=== PATIENT | male | born 1945 | race Caucasian/White ===

== ENCOUNTER 2020-02-21 12:39 | Emergency (ER) | payer OTHER ==
[2020-02-21 13:51] LABS: Absolute Lymphocytes (CBC) 2.5 K/uL (0.7-4.9); Lymphocytes % 23.9 % (15.3-44.8); MPV 9.1 fL (7.6-11.3); RBC Red Blood Cell Count 4.59 M/uL (4.33-5.43)
[2020-02-21 13:52] LABS: Protime INR 1.06
[2020-02-21 14:00] LABS: ALT/SGPT 16 U/L (12-78); AST/SGOT 8 U/L (15-37); Albumin 3.4 g/dL (3.4-5.0); Alkaline Phosphatase 80 U/L (45-117); BUN Blood Urea Nitrogen 15 mg/dL (7-18); Bicarbonate 27 mmol/L (21-32); Bilirubin Direct 0.2 mg/dL (0-0.2); Bilirubin Total 0.8 mg/dL (0.2-1.0); Glucose Level 227 mg/dL (74-106); Magnesium 1.5 mg/dL (1.8-2.4); NT PRO-BNP 273 pg/mL (<450); Potassium 3.9 mmol/L (3.5-5.1); Protein, Total 6.7 g/dL (6.4-8.2); Sodium Level 140 mmol/L (136-145); Troponin (Emerg Dept Use Only) < 0.02 ng/mL (0.0-0.045)
--- NOTE | 2020-02-21 14:19 | ER ---
Nurse's Notes [facility] Name: Jonathon Pimentel Age: 74 yrs Sex: Male : 1945 Arrival Date: 02/21/2020 Time: 12:56 Bed 25 Private MD: Diagnosis: Chest pain, unspecified;Essential (primary) hypertension Presentation: 02/20 13:01 Chief complaint: Patient states: episode of chest pain and shoulder discomfort that ph last 12-15 minutes last night. Pt reports he checked his blood pressure which was 200/100. Pt has no complaints at this time, but would like to get checked out. Coronavirus screen: Proceed with normal triage. Patient denies a cough. Patient denies shortness of breath or difficulty breathing. Patient denies measured and/or subjective temperature greater than 100.4F prior to today's visit. Patient denies travel on a cruise ship or to a country the [facility] currently lists as an affected area. Patient denies contact with known and/or suspected case of COVID-19. Ebola Screen: Patient denies exposure to infectious person. Patient denies travel to an Ebola-affected area in the 21 days before illness onset. Initial Sepsis Screen: Does the patient meet any 2 criteria? No. Patient's initial sepsis screen is negative. Does the patient have a suspected source of infection? No. Patient's initial sepsis screen is negative. Risk Assessment: Do you want to hurt yourself or someone else? Patient reports no desire to harm self or others. Onset of symptoms was February 20, 2020. 13:01 Method Of Arrival: Ambulatory ph 13:01 Acuity: MARLENA 3 ph Historical: - Allergies: 13:04 No Known Allergies; ph - Immunization history:: Adult Immunizations not immunized, Flu vaccine is up to date. - Social history:: Smoking status: Patient denies any tobacco usage or history of. Screenin:32 Abuse screen: Denies threats or abuse. Nutritional screening: No deficits noted. ll1 Tuberculosis screening: No symptoms or risk factors identified. Fall Risk IV access (20 points). Total Ann Fall Scale indicates No Risk (0-24 pts). Assessment: 13:31 General: Appears in no apparent distress. Behavior is calm, cooperative, appropriate ll1 for age. Pain: Denies pain. Pain: Pain does not radiate. Pain began 1 day ago. Neuro: No deficits noted. Cardiovascular: Reports since had 10 minute episode of chest pain and high BP last night. Resolved now. Heart tones S1 S2 Capillary refill < 3 seconds Clubbing of nail beds is absent JVD is absent Patient's skin is warm and dry. Pulses are all present. Respiratory: No deficits noted. Airway is patent Trachea midline Respiratory effort is even, unlabored, Respiratory pattern is regular, symmetrical. 14:30 Reassessment: Patient appears in no apparent distress at this time. No changes from ll1 previously documented assessment. Patient and/or family updated on plan of care and expected duration. Pain level reassessed. Patient is alert, oriented x 3, equal unlabored respirations, skin warm/dry/pink. Vital Signs: 13:01 BP 144 / 67; Pulse 103; Resp 18; Temp 98.0(TE); Pulse Ox 98% on R/A; Weight 113.4 kg; ph Height 5 ft. 10 in. (177.80 cm); Pain 0/10; 13:15 BP 127 / 68; Pulse 85; Resp 18; Pulse Ox 99% ; ll1 14:13 BP 119 / 57; Pulse 81; Resp 18; Pulse Ox 97% ; ll1 13:01 Body Mass Index 35.87 (113.40 kg, 177.80 cm) ph ED Course: 12:56 Patient arrived in ED. fj1 13:04 Triage completed. ph 13:04 Arm band placed on right wrist. ph 13:06 Nessa Ch, CRISTHIAN is Primary Nurse. ll1 13:06 Telly Champagne NP is PHCP. pm1 13:06 Arturo Mccormick MD is Attending Physician. pm1 13:25 Inserted saline lock: 20 gauge in left antecubital area, using aseptic technique. Blood ll1 collected. Patient maintains SpO2 saturation greater than 95% on room air. 13:33 Patient has correct armband on for positive identification. Bed in low position. Call ll1 light in reach. Side rails up X2. paper bag maker on. Pulse ox on. NIBP on. 13:42 XRAY Chest (1 view) In Process Unspecified. EDMS 14:40 No provider procedures requiring assistance completed. IV discontinued, intact, ll1 bleeding controlled, No redness/swelling at site. Pressure dressing applied. Administered Medications: 14:34 Drug: Magnesium 400 mg Route: PO; ll1 14:42 Follow up: Response: No adverse reaction; RASS: Alert and Calm (0) ll1 Outcome: 14:19 Discharge ordered by . pm1 14:42 Patient left the ED. ll1 14:42 Discharged to home ambulatory. ll1 14:42 Condition: stable 14:42 Discharge instructions given to patient, Instructed on discharge instructions, follow up and referral plans. Demonstrated understanding of instructions, follow-up care. Signatures: Dispatcher [employer] EDLorraine Martin, RN RN Telly Banuelos, ROSIE STATUS CONTROLLER pm1 Benjie Padilla 1 Nessa Ch RN RN ll1
--- NOTE | 2020-02-21 14:19 | EDPHYS ---
Physician Documentation [facility] Name: Jonathon Pimentel Age: 74 yrs Sex: Male : 1945 Arrival Date: 02/21/2020 Time: 12:56 Bed 25 Private MD: ED Physician Arturo Mccormick HPI: 02/20 13:20 This 74 yrs old Male presents to ER via Ambulatory with complaints of Chest pm1 Pain, HEART EVALUATION. 13:20 The patient or guardian reports chest pain that is located primarily in the mid-sternal pm1 area. Onset: last night. Associated signs and symptoms: Pertinent positives: hypertension, Pertinent negatives: abdominal pain, cough, diaphoresis, dizziness, headache, nausea, near syncope, palpitations, shortness of breath, vomiting. The chest pain is described as sharp. Duration: The patient or guardian reports a single episode, that is now resolved, that lasted 15 minute(s). Modifying factors: The symptoms are alleviated by NSAIDS, Ibuprofen. the symptoms are aggravated by nothing. Severity of pain: in the emergency department the pain has resolved. The patient has experienced similar episodes in the past. Presents to the ER with complaints of chest pain. Patient with history of chronic back pain from herniated discs. Patient reports that he felt his chronic back pain and that it radiated to his chest. Pain lasted for 12-15 minutes and it occurred last night. Patient has not had any chest pain since. Patient reported that his blood pressure was elevated when he had the pain and it returned to his baseline as his chest pain resolved. Historical: - Allergies: 13:04 No Known Allergies; ph - Immunization history:: Adult Immunizations not immunized, Flu vaccine is up to date. - Social history:: Smoking status: Patient denies any tobacco usage or history of. ROS: 13:20 Constitutional: Negative for fever, chills, and weight loss, Neck: Negative for injury, pm1 pain, and swelling, Respiratory: Negative for shortness of breath, cough, wheezing, and pleuritic chest pain, Abdomen/GI: Negative for abdominal pain, nausea, vomiting, diarrhea, and constipation. 13:20 Back: Negative for injury and pain, MS/Extremity: Negative for injury and deformity, Skin: Negative for injury, rash, and discoloration, Neuro: Negative for headache, weakness, numbness, tingling, and seizure. 13:20 Cardiovascular: Positive for chest pain, Negative for edema, palpitations. Exam: 13:20 Constitutional: This is a well developed, well nourished patient who is awake, alert, pm1 and in no acute distress. Head/Face: Normocephalic, atraumatic. Neck: Trachea midline, no thyromegaly or masses palpated, and no cervical lymphadenopathy. Supple, full range of motion without nuchal rigidity, or vertebral point tenderness. No Meningismus. Chest/axilla: Normal chest wall appearance and motion. Nontender with no deformity. No lesions are appreciated. Cardiovascular: Regular rate and rhythm with a normal S1 and S2. No gallops, murmurs, or rubs. Normal PMI, no JVD. No pulse deficits. Respiratory: Lungs have equal breath sounds bilaterally, clear to auscultation and percussion. No rales, rhonchi or wheezes noted. No increased work of breathing, no retractions or nasal flaring. Abdomen/GI: Soft, non-tender. No guarding or rebound. No evidence of tenderness throughout. Back: No spinal tenderness. No costovertebral tenderness. Full range of motion. Skin: Warm, dry with normal turgor. Normal color with no rashes, no lesions, and no evidence of cellulitis. MS/ Extremity: Pulses equal, no cyanosis. Neurovascular intact. Full, normal range of motion. 13:20 Neuro: Exam negative for acute changes, Orientation: is normal, Mentation: is normal, Motor: is normal, moves all fours, Gait: is steady, at a normal pace, without difficulty. Vital Signs: 13:01 BP 144 / 67; Pulse 103; Resp 18; Temp 98.0(TE); Pulse Ox 98% on R/A; Weight 113.4 kg; ph Height 5 ft. 10 in. (177.80 cm); Pain 0/10; 13:15 BP 127 / 68; Pulse 85; Resp 18; Pulse Ox 99% ; ll1 14:13 BP 119 / 57; Pulse 81; Resp 18; Pulse Ox 97% ; ll1 13:01 Body Mass Index 35.87 (113.40 kg, 177.80 cm) ph MDM: 13:06 Patient medically screened. pm1 14:11 Data reviewed: vital signs. Data interpreted: Pulse oximetry: on room air is 98 %. pm1 Interpretation: normal. 14:18 Counseling: I had a detailed discussion with the patient and/or guardian regarding: the pm1 historical points, exam findings, and any diagnostic results supporting the discharge/admit diagnosis, lab results, radiology results, the need for outpatient follow up, to return to the emergency department if symptoms worsen or persist or if there are any questions or concerns that arise at home. 02/20 13:16 Order name: Basic Metabolic Panel; Complete Time: 14:11 pm02/20 13:16 Order name: CBC with Diff; Complete Time: 14:11 pm1 02/20 13:16 Order name: LFT's; Complete Time: 14:11 pm1 02/20 13:16 Order name: Magnesium; Complete Time: 14:11 pm02/20 13:16 Order name: NT PRO-BNP; Complete Time: 14:11 pm1 02/20 13:16 Order name: PT-INR; Complete Time: 14:11 pm1 02/20 13:16 Order name: Troponin (emerg Dept Use Only); Complete Time: 14:11 pm02/20 13:16 Order name: XRAY Chest (1 view) pm1 02/20 13:16 Order name: EKG; Complete Time: 13:18 pm02/20 13:16 Order name: Cardiac monitoring; Complete Time: 13:30 pm02/20 13:16 Order name: EKG - Nurse/Tech; Complete Time: 13:30 pm02/20 13:16 Order name: IV Saline Lock; Complete Time: 13:30 pm02/20 13:17 Order name: Labs collected and sent; Complete Time: 13:31 pm02/20 13:17 Order name: O2 Per Protocol; Complete Time: 13:31 pm02/20 13:17 Order name: O2 Sat Monitoring; Complete Time: 13:31 pm1 Administered Medications: 14:34 Drug: Magnesium 400 mg Route: PO; ll1 14:42 Follow up: Response: No adverse reaction; RASS: Alert and Calm (0) ll1 Disposition: 19:40 Co-signature as Attending Physician, Arturo Mccormick MD. [email or web address] Disposition: 02/21/20 14:19 Discharged to Home. Impression: Chest pain, unspecified, Essential (primary) hypertension. - Condition is Stable. - Discharge Instructions: Nonspecific Chest Pain, Hypertension, How to Take Your Blood Pressure, [id number], DASH Eating Plan, Managing Your Hypertension. - Medication Reconciliation Form, Thank You Letter, Antibiotic Education, Prescription Opioid Use form. - Follow up: Emergency Department; When: As needed; Reason: Worsening of condition. Follow up: Private Physician; When: 2 - 3 days; Reason: Recheck today's complaints, Continuance of care, Re-evaluation by your physician. - Problem is new. - Symptoms have improved. Signatures: Dispatcher [employer] EDMS Lorraine Domínguez RN RN ph Telly Champagne, ROSIE VIDEO CLERK pm1 Nessa Ch RN RN ll1 Arturo Mccormick MD MD [email or web address] Corrections: (The following items were deleted from the chart) 14:42 14:19 02/21/2020 14:19 Discharged to Home. Impression: Chest pain, unspecified; ll1 Essential (primary) hypertension. Condition is Stable. Forms are Medication Reconciliation Form, Thank You Letter, Antibiotic Education, Prescription Opioid Use. Follow up: Emergency Department; When: As needed; Reason: Worsening of condition. Follow up: Private Physician; When: 2 - 3 days; Reason: Recheck today's complaints, Continuance of care, Re-evaluation by your physician. Problem is new. Symptoms have improved. pm1
[2020-02-21] MEDS ORDERED: MAGNESIUM OXIDE 400 MG TAB ONE (14:34)
[2020-02-21 14:52] VITALS: TEMP 98
[2020-02-21 14:54] VITALS: BP 119/57; O2SAT 97
--- NOTE | 2020-02-21 15:59 | RAD REPORT ---
EXAM DESCRIPTION: Juni Single View02/21/2020 1:39 pm CLINICAL HISTORY: Chest pain COMPARISON: none FINDINGS: The lungs appear clear of acute infiltrate. The heart is mildly enlarged IMPRESSION: No acute abnormalities displayed
--- NOTE | 2020-02-21 19:24 | EKG ---
Test Date: 2020-02-21 Test Time: 13:12:27 Registration Manager: CLAUS MEASUREMENT RESULTS: Intervals: Rate: 93 ME: 164 QRSD: 80 QT: 320 QTc: 397 [place]: P: 57 ME: 164 QRS: 72 T: -11 INTERPRETIVE STATEMENTS: Normal sinus rhythm Nonspecific ST and T wave abnormality Abnormal ECG No previous ECG available for comparison Electronically Signed On 02-21-20 19:23:49 CDT by Jonathan Gerardo
== END 2020-02-21 14:42 | disposition home or self-care (01) ==
LOC: ER 12:39
DX: R07.9 Chest pain, unspecified (principal); I10 Essential (primary) hypertension
CPT/HCPCS: 36415; 71045; 80048; 80076; 83735; 83880; 84484; 85025; 85610; 93005; 99285

== ENCOUNTER 2022-07-14 21:52 | Inpatient (IN) | payer OTHER ==
--- OUTSIDE RECORDS SUMMARY | 2022-07-14 21:59 | XMS REPORT | Continuity of Care Document ---
:1945 Author Organization [facility] t Address [address] [place] [address] Care Team Providers Name Role Phone FREDRICK DELGADO Primary Care Physician Unavailable Fredrick Delgado MD Attending Clinician MILTON TABARES Attending Clinician Unavailable Leela Kebede MA Attending Clinician Unavailable Teresa Hernandez MD Attending Clinician Jose Kendall MD Attending Clinician Marilyn Wetzel MD Attending Clinician Jaleesa Nicholas MA Attending Clinician Unavailable Janes Santiago MD Attending Clinician Rene Shah Attending Clinician Macy Baron MA Attending Clinician Unavailable Mehdi Joel MD Attending Clinician [phone] MARIA DEL CARMEN MARIANO Attending Clinician Unavailable Brittney Patterson RN Attending Clinician Unavailable Yamila Velasquez MA Attending Clinician Unavailable Leidy Gaona MA Attending Clinician Unavailable Liliana Cardona RN Attending Clinician Unavailable Gillian Hernandez MA Attending Clinician Unavailable Celeste POLO, Galindo Smith Attending Clinician [phone] MD MEHDI JOEL Attending Clinician Unavailable Yamila Recinos MA Attending Clinician Unavailable Provider, Unknown Attending Clinician Unavailable MD MARILYN WETZEL Attending Clinician Unavailable Jenny Diaz RN Attending Clinician Unavailable Teresa Hodge Attending Clinician Unavailable Paolo Saldivar MA Attending Clinician Unavailable Provider Stepan POLO Attending Clinician Teresa Grady MA Attending Clinician Unavailable Concha POLO, Val Attending Clinician [phone] Kiara Levin MA Attending Clinician Unavailable Torsten Herrera MD Attending Clinician [phone] MD FREDRICK DELGADO Attending Clinician Unavailable JUSTUS DUNN Attending Clinician Unavailable Sachi Kingston Attending Clinician MD BRANNON HERNANDEZ Attending Clinician Unavailable [facility] Attending Clinician Unavailable Geoffrey Riddle Attending Clinician GEOFFREY SNYDER Attending Clinician Unavailable BRANNON HERNANDEZ Attending Clinician Unavailable ASAEL TELLO Attending Clinician Unavailable DAPHNEY BENJAMIN Attending Clinician Unavailable NURIS CHEN Attending Clinician Unavailable MARIA DEL CARMEN RUDOLPH Attending Clinician Unavailable MEHDI JOEL Admitting Clinician Unavailable MD MEHDI JOEL Admitting Clinician Unavailable MARILYN WETZEL Admitting Clinician Unavailable MD MARILYN WETZEL Admitting Clinician Unavailable MD FREDRICK DELGADO Admitting Clinician Unavailable MD BRANNON HERNANDEZ Admitting Clinician Unavailable Payers Payer Name Policy Type Policy Number Effective Date Expiration Date S ource Problems Condition Condition Condition Status Onset Resolution Last Treating Co mments Source Name Details Category Date Date Treatment Clinician Date Balance Balance Disease Active Overview: Meth maricel problem problem 05-[address] 00:00: [facility] of this [facility]ospita 00 note l might be different from the original. Evaluated by cardiolog y 05/2022 Event monitor was done post TAVR revealing no bradycard ia or pauses. -He notes worsening fatigue and balance issues since TAVR. He can be standing and his equilibri um is off and feels like he will fall forward. -He was bending over to let his dog out of his cage and continued to fall forward- no significa nt injuries. He does not have any dizziness . He denies any dyspnea. -He is still awaiting a new cpap machine- his old machine has been recalled. He has been waiting ~1 yearPlan refer to neurology Cervical Cervical Disease Active Overview: Me thodi radiculopa radiculopa 7-[address] thy thy 00:00: g of this Hospita 00 note l might be different from the original. Evaluated by Neurosurg peace 12/2021 + Orthopedi c Dr Tello Mr. Pimentel presents office today for evaluatio n of low back and bilateral lower extremity pain as well as neck pain. He presents with no recent imaging. He has failed conservat quentin treatment s for his lumbar spine as well. At this time, we will obtain an MRI of the cervical and lumbar spine for further evaluatio n as well as lumbar x-rays. The patient has expressed his understan ding and agrees with the plan, all of his questions were answered to his satisfact ion. He will follow up in office once diagnosti cs are completed .- Using Gabapenti n for pain / referred for pain managemen t S/P TAVR S/P TAVR Disease Active 2020-09 Overview: Me gallardo (transcath (transcath 2-[address] eter eter 00:00: g of this Hospita aortic aortic 00 note is l valve valve different replacemen replacemen from the t) 2020 t) 2020 original. complicate complicate Jonathon Carolina d with d with Loren is LBBB which LBBB which a 76 y.o. resolved : resolved : male with back to back to history topril XL topril XL of as per as per diabetes 09/10 09/10 mellitus, Cardiology Cardiology hypertens note note ion, obstructi ve sleep apnea with cpap use, hyperlipi demia, severe aortic stenosis status post TAVR in 07/2021. Post procedure he had a LBBB. His Toprol was stopped and a 30 event monitor was placed. Event monitor revealing no pauses or bradycard ia. No afib. EKG revealing no further LBBB. Would resume Toprol XL 25. Aortic Aortic Disease Active 2020-09 Methodi stenosis, stenosis, 1-09 st severe severe 00:00: Hospita 00 l Unstable Unstable Disease Active 2020-09 Overview: Me gallardo angina angina 0-[address] 00:00: g of this Hospita 00 note l might be different from the original. Added automatic ally from request for surgery [id number] Chronic Chronic Disease Active Overview: Meth maricel diastolic diastolic 4 Formattin s t heart heart 00:00: g of this Hospita failure failure 00 note l might be different from the original. Chronic diastolic heart failure (HCC)CHF is compensat ed, he is in NYHA class II, continue current medical therapy: furosemid e 20 mg daily Aortic Aortic Disease Active Overview: Method i stenosis stenosis 12-[address] 00:00: g of this Hospita 00 note l might be different from the original. 07/11 Cardiolog y History of moderate to severe aortic stenosis, recent echo revealed worsening of to severe degree,Pe ak velocity is 4.03 m/s, mean pressure gradient is 36 mmHg and aortic valve area is 0.77 cm2, mild pulmonary hypertens ion with RVSP of 44 mmHg clinicall y he has dyspnea and fatigue symptom of mild to moderate activity, will refer to have a TAVR evaluatio nCardiova scular Protocol and plan discussed with patient and family.Al l questions and concerns addressed . Discussed vascular complicat ions, possibly of sternotom y and bypass, pacemaker dependanc e, and possibili ty of PVL.Preop TAVR testing still needed: CVCTA, Cath, Carotids, PFTS Chronic Chronic Disease Active Overview: Meth maricel obstructiv obstructiv [address] e e 00:00: g of this Hospita pulmonary pulmonary 00 note is l disease disease different with acute with acute from the exacerbati exacerbati original. 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 By Cardiolog y Pt on amlodipin e 5 mg + lasix 20 mg by cardiolog y for diastolic dysfuncti on :not bothersom e Diastolic Diastolic Disease Active 2019-09 Overview: Methodi dysfunctio dysfunctio [address] n n 00:00: g of this Hospita 00 note l might be different from the original. By cardiolog y This patient has significa nt elevated left ventricul ar end-diast olic pressure due to left ventricle stiffness which caussd elevated pulmonary capillary wedge pressure as well as moderate pulmonary hypertens ion, there is moderate aortic stenosis, will not refer patient to have TAVR at this point. 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 Trt and preventio n reviewed Hypoglyce kyrie : random BS in the 70 to 80 since start of insulin. Using glimepiri de 4 mg bid + metformin 2000/U : lower insulin Screening Screening Disease Active 2019-09 Overview: Methodi for colon for colon 0 Formatt[address] s t cancer cancer 00:00: g of this Hospita 00 note l might be different from the original. 2011 RTC in 10 years 06/08/2019 :Cologuar d negative 2021: not intereste d in repeat Thyroid Thyroid Disease Recurre Overview: Met hodi nodule R nodule R nce 06-[address] 1.6 cm and 1.6 cm and 00:00: g of this Hospita 2.8 cm 2.8 cm 00 note l left left might be different from the original. By endocrine : The biopsies of the 2 thyroid nodules are benign. I recommend ultrasoun d of the thyroid every 1-2 years to monitor the size of the nodule. Atypical Atypical Disease Active Overview: Me thodi chest pain chest pain 05-[address] acth : acth : 00:00: g of this Hospita mild no mild no 00 note is l obstructiv obstructiv different e CAD e CAD from the original. Followed by cardiolog y Cath Impressio n: 1 mild nonobstru ctive coronary artery disease2 normal left ventricul ar systolic function3 moderate aortic stenosis4 elevated left ventricul ar end-diast olic pressure of 35 mmHg5 moderate pulmonary hypertens ion and elevated pulmonary capillary wedge pressure. Comments: This patient has significa nt elevated left ventricul ar end-diast olic pressure due to left ventricle stiffness which caussd elevated pulmonary capillary wedge pressure as well as moderate pulmonary hypertens ion, there is moderate aortic stenosis, will not refer patient to have TAVR at this point. Will start beta-bloc ker and diuretics for treating left ventricul ar diastolic dysfuncti on. 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 Evaluated by Neurosurg peace( 12/2021 ) - Orthopedi c :Dr Tello/ Jung Padilla -Failed PT , recurrent pain with sciatica , partially relieved with gabapenti n -Persiste nt and recurrent pain + stiffness + shooting to legsMrNilda Pimentel presents office today for evaluatio n of low back and bilateral lower extremity pain as well as neck pain. He presents with no recent imaging. He has failed conservat quentin treatment s for his lumbar spine as well. At this time, we will obtain an MRI of the cervical and lumbar spine for further evaluatio n as well as lumbar x-rays. The patient has expressed his understan ding and agrees with the plan, all of his questions were answered to his satisfact ion. He will follow up in office once diagnosti cs are completed .-Using Gabapenti n for Neuropath y control _ Referral ;to pain managemen t DDD DDD Disease Active Overview: Method i (degenerat (degenerat 4-[address] quentin disc quentin disc 00:00: g of this Hos aravind disease), disease), 00 note l lumbar lumbar might be different from the original. 02/2020 Consulted many orthopedi cs for back pain including Dr Tello and Jung Padilla ; MRI done for his back , no surgery is indicated , completed physical therapy : darnell blandon ( he consulted few other orthopedi cs in the past; no surgery have been suggested yet to my knowledge ) History of History of Disease Active M ethodi use of use of 04-20 st hearing hearing 00:00: Hospita aid in aid in 00 l both ears both ears : not : not regular regular Wears Wears Disease Active Methodi dentures dentures 04-20 st 00:00: Hospita 00 l Chronic Chronic Disease Recurre Overview: Met hodi seasonal seasonal nce 04-[address] allergic allergic 00:00: g of this Hos aravind rhinitis rhinitis 00 note l due to due to might be pollen; pollen; different has dog has dog from the and a cat and a cat original. Aware of worsening symptoms with dog and cats in the house Plan Start flonase - start zyrtec daily ( he can finish his benadryl supplies ) Wears Wears Disease Active Methodi reading reading 04-[address] eyeglasses eyeglasses 00:00: Ho spita 00 l Impingemen Impingemen Disease Active Overview : Methodi t syndrome t syndrome 5-[address] of right of right 00:00: g of this Hos aravind shoulder shoulder 00 note l might be different from the original. Added automatic ally from request for surgery Sprain of Sprain of Disease Active Overview: Methodi right right 5-[address] rotator rotator 00:00: g of this Hospi ta cuff cuff 00 note l capsule capsule might be different from the original. Added automatic ally from request for surgery [id number] Secondary Secondary Disease Active Overview: Methodi osteoarthr osteoarthr 5-[address] itis of itis of 00:00: g of this Hospi ta right right 00 note l shoulder shoulder might be different from the original. Added automatic ally from request for surgery [id number] Ophthalmol Ophthalmol Disease Recurre Overvie w: Loci crystal rojas nce 01-[address] follow-up follow-up 00:00: g of this H ospita encounter encounter [address] faiza kendall might be different from the original. 2018 dr Kendall 2019 Advised to keep uptodate Thoracic Thoracic Disease Active 2017-09 Overview: Me thodi disc disc 2-[address] herniation herniation 00:00: g of this Hospita 00 note l might be different from the original. 01/2020 evaluated in ED for atypical chest pain r/o for acute cardiac ;pain attribute d to thoracic herniated disc ; chronic as per pt with flare ups. 0 seen by [facility] maritza [facility]G for lower / thoracic back pain s/p MRI ; completed physical therapy with resolutio n - surgery if not improving 02/2020 no back pain Status Status Disease Active 2017-09 Methodi post post [address] st shoulder shoulder 00:00: Hospit a surgery,le surgery,le 00 l ft s/p ft s/p arthroscop arthroscop ic surgery ic surgery THIERRY on THIERRY on Disease Recurre Overview: Metho di CPAP, CPAP, nce 02-[address] using CPAP using CPAP 00:00: g of this Hospita daily daily 00 note is l different from the original. Followed by sleep specialis t Dr Santiago 1. Pleural thickenin g could be asbestosi s seen priorCT chest done with LARY alfaro and was told he has asbesotsi sRestrict quentin lung diseaseCh verónica pulmonary function testStart albuterol as needed 3. History of THIERRY- [phone] order new machine. 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 -Unable to afford SGLT2 and GLP1 AR -Uncontro lled with A1C > 7.5 with metformin + glimepiri de + Basaglar Continue same medicatio ns for now and reassess : advised better eating habit Pure Pure Disease Recurre Overview: Metho di hyperchole hyperchole nce 4-[address] sterolemia sterolemia 00:00: g of this Hospita 00 note is l different from the original. Compliant with lipitor 40 mg : LDL at goal HTN HTN Disease Recurre Overview: Metho di (hypertens (hypertens nce 4-[address] ion), ion), 00:00: g of this Hospita benign benign 00 note is l different from the original. Managed by Cardiolog y : - Norvasc + benazepri l + toprol XL 75 mg /d + lasix and they have great synergist ic effect and blood pressure lowering and reducing the risk of proteinur ia.- Advised to refill all blood pressure medicatio ns from Cardiolog y in order to minimize his risk for confusion with polypharm acy. Class 2 Class 2 Disease Active Methodi severe severe 4-11 st obesity obesity 00:00: Hospita due to due to 00 l excess excess calories calories with with serious serious comorbidit comorbidit y and body y and body mass index mass index (BMI) of (BMI) of 36.0 to 36.0 to 36.9 in 36.9 in adult adult SOB SOB Disease Active Overview: Method i (shortness (shortness 4-[address] of breath) of breath) 00:00: g of this Hospita 00 note is l different from the original. Multifact orial : COPD / asbestosi s exposure /Elevated pulm HTN / aortic stenosis / mild non obstructi ve CAD/diast olic htn PFTS : Interpret ationSpir ometry with flow volume loops demonstra murphy mild airway obstructi on.Lung volumes are consisten t with moderate restricti ve lung disease.T he diffusing capacity for carbon monoxide, a reflectio n of alveolar- capillary gas transport , is borderlin e reduced.( Physician Final: 0 10:45AM, Janes OolutCT chest without contrastR ight hemidiaph ragm is elevated and may be paralyzed . Consider fluorosco py for further evaluatio n. Passive subsegmen renetta atelectas is in the right lung base, and bibasilar linear scarring Trace pleural effusions . No pleural thickenin g, calcifica tion, or pneumotho rax Heart is normal in size. Moderate to severe coronary artery calcifica tion with three-ves shen disease. No pericardi al effusion. Heavy mitral annular and aortic valvular calcifica tions. Aorta is nonaneury smal and there is mild scattered calcified atheromat ous plaque. Pulmonary artery is normal in diameter. No mediastin al mass or suspiciou s thoracic lymph nodes Bilateral thyroid nodules versus cysts. Consider ultrasoun d for further assessmen t. Esophagus is unremarka ble. No acute or suspiciou s osseous lesion is identifie d. 05/2020 evaluated by cardiolog y / pulmonary s/p cath Cath Impressio n: 1 mild nonobstru ctive coronary artery disease2 normal left ventricul ar systolic function3 moderate aortic stenosis4 elevated left ventricul ar end-diast olic pressure of 35 mmHg5 moderate pulmonary hypertens ion and elevated pulmonary capillary wedge pressure. Comments: This patient has significa nt elevated left ventricul ar end-diast olic pressure due to left ventricle stiffness which caussd elevated pulmonary capillary wedge pressure as well as moderate pulmonary hypertens ion, there is moderate aortic stenosis, will not refer patient to have TAVR at this point. Will start beta-bloc ker and diuretics for treating left ventricul ar diastolic dysfuncti on. Type 2 Type 2 Disease Recurre Overview: Metho di diabetes diabetes nce 4-[address] mellitus mellitus 00:00: g of this Hos aravind with with 00 note l complicati complicati might be on, with on, with different long-term long-term from the current current original. use of use of -2018 DM insulin insulin well controlle d with victoza+S GLT2 ; cost was an issue :switched to lantus + [id number] + glimepiri de 4 mg 1/2 tab due to marion lui.: Unable to afford brand name including SGLT2 and GLP1 AR : rather stay with glimepiri de / metformin + insulin -07/11 : Uncontrol led with A1C > 7.5 .FBS at 101 today at 120 in the office check A1C and reassess the plan Allergies, Adverse Reactions, Alerts Allergy Allergy Status Severity Reaction(s) Onset Inactive Treating Comm ents Source Name Type Date Date Clinician NO KNOWN Drug Active Univers ALLERGIE Class ity of [facility] [place] [facility] Family History Family Member Diagnosis Comments Start Date Stop Date Source Paternal grandfather [facility] Paternal grandmother [facility] Natural sister Leukemia [facility] Natural brother COPD [facility] Natural father Lung cancer [facility] Maternal grandfather [facility] Maternal grandmother [facility] Natural mother Alzheimer's [facility] Social History Social Habit Start Date Stop Date Quantity Comments Source Sex Assigned At [facility] [place] [facility] Exposure to Not sure [facility] SARS-CoV-2 [facility] (event) Tobacco use and 2022-06-25 2022-06-25 Smokeless tobacco [facility]odist exposure 00:00:00 00:00:00 non-user Hospital Alcohol intake 2022-06-25 2022-06-25 Current [facility] 00:00:00 00:00:00 non-drinker of Hospital alcohol (finding) History SDOH 2021-08-09 2021-08-09 5 [facility] 00:00:00 00:00:00 Hospital History SDOH Food 2021-08-09 2021-08-[address] Worry 00:00:00 00:00:00 Hospital History SDOH Food 2021-08-09 2021-08-[address] Scarcity 00:00:00 00:00:00 Hospital History SDOH 2021-08-09 2021-08-09 2 [facility] Med 00:00:00 00:00:00 Hospital History SDOH 2021-08-09 2021-08-09 2 [facility] Non-Med 00:00:00 00:00:00 Hospita l Smoking Status Start Date Stop Date Source Never smoked tobacco [facility] Medications Ordered Filled Start Stop Current Ordering Indication Dosage Frequency Signature Comments Components Source Medication Medication Date Date Medication? Clinician (SIG) Name Name doxycycline 2021-09 Yes 50mg Q24H Take 50 mg Methodi -skin 0-[address] cleanser 09:54: daily as Hospi ta no19 50 mg 44 needed l kit (prn rosacea flare ups). flash 2021-09 Yes [id number] 1{devic Q14D 1 Device Methodi glucose 0-05 e} every 14 st sensor 00:00: (fourteen) Hospi ta (FreeStyle 00 days. l Alex 2 Sensor) kit amLODIPine 2021-09 Yes 5mg QD Take 1 Metho di (NORVASC) 5 0-02 tablet (5 st mg tablet 00:00: mg total) Hos aravind 00 by mouth l nightly. benazepriL 2021-09 Yes 20mg QD Take 1 Metho di (LOTENSIN) 0-02 tablet (20 st 20 MG 00:00: mg total) Hospita tablet 00 by mouth l daily. glimepiride 2021-09 Yes [id number] 1 tab w/b Methodi (AMARYL) 4 0-[address] MG tablet 00:00: w/d Hospita 00 l gabapentin 2021-09 Yes [id number] 1 tab M ethodi (NEURONTIN) 0-[address] 300 mg 00:00: nerve pain Hospi ta capsule 00 l glimepiride 2021-09- No [id number] 1 tab w/b Methodi (AMARYL) 4 0-02 10-[address] MG tablet 00:00: 00:00 w/d Hospita 00 :00 l glimepiride 2- No [id number] TAKE ONE Methodi (AMARYL) 4 8-22 10-[address] MG tablet 00:00: 00:00 MOUTH Hospit a 00 :00 TWICE A l DAY WITH BREAKFAST AND DINNER metFORMIN Yes [id number] TAKE TWO Methodi XR 8-[address] (GLUCOPHAGE 00:00: MOUTH Hospi ta -XR) 500 mg 00 TWICE A l 24 hr DAY tablet benazepriL 2021- No 20mg QD Take 1 Meth maricel (LOTENSIN) 7-21 10-02 tablet (20 st 20 MG 00:00: 00:00 mg total) Hospit a tablet 00 :00 by mouth l daily. Lantus 2021- No Inject Methodi Solostar 707 07-[address] U-100 15:42: 00:00 skin. Hospita Insulin 100 01 :00 Inject 30 l unit/mL units injection (pen) Lantus Yes Inject 30 Method i Solostar 7-[address] U-100 00:00: the Hospita Insulin 100 00 morning l unit/mL injection (pen) insulin 2021- No [id number] INJECT 30 Methodi GLARGINE 03-26- UNITS st (Basaglar 00:00: 00:00 UNDER THE Ho spita KwikPen 00 :00 SKIN EVERY l U-100 MORNING Insulin) 100 unit/mL injection (pen) metoprolol 2021- No 25mg QD Take 1 Meth maricel succinate 03-26 tablet (25 st XL 00:00: 00:00 mg total) Hospita (TOPROL-XL) 00 :00 by mouth l 25 mg 24 hr daily. tablet atorvastati Yes TAKE ONE Me thodi n (LIPITOR) - TABLET BY st 40 mg 00:00: MOUTH ONCE Hospit a tablet 00 NIGHTLY l insulin 2021- No INJECT 30 Meth maricel GLARGINE 03-13- UNITS st (Basaglar 00:00: 00:00 UNDER THE Ho spita KwikPen 00 :00 SKIN EVERY l U-100 MORNING Insulin) 100 unit/mL injection (pen) glimepiride 2021- No [id number] TAKE ONE [facility] (AMARYL) 4 02-10- TABLET BY st MG tablet 00:00: 00:00 MOUTH Hospit a 00 :00 TWICE A l DAY WITH BREAKFAST AND DINNER benazepriL 2021- No TAKE ONE Me thodi (LOTENSIN) 02-03- TABLET BY st 20 MG 00:00: 00:00 MOUTH Hospita tablet 00 :00 DAILY l metFORMIN 2021- No [id number] TAKE TWO [facility] XR 01-27- TABLETS BY st (GLUCOPHAGE 00:00: 00:00 MOUTH Hosp antoine -XR) 500 mg 00 :00 TWICE A l 24 hr DAY tablet simvastatin 2021- No 10mg QD Take 10 mg [facility] (ZOCOR) 10 01-09 04-[address] MG tablet 22:34: 00:00 nightly. Hos aravind 36 :00 l pen needle, Yes USE WITH Me thodi diabetic 31 4-[address] gauge x 00:00: DAILY Hospita 16" 00 l needle gabapentin 2021- No [id number] 1 tab [facility] (NEURONTIN) 01-06- daily for st 300 mg 00:00: 00:00 nerve pain Hosp antoine capsule 00 :00 l benazepriL 2021- No [id number] 40mg QD Take 1 [facility] (LOTENSIN) 01-06- tablet (40 st 40 MG 00:00: 00:00 mg total) Hospit a tablet 00 :00 by mouth l daily. Lantus 2021- No INJECT [facility] Solostar 01-06- 35-40 st U-100 00:00: 00:00 UNITS Hospita Insulin 100 00 :00 UNDER THE l unit/mL SKIN EVERY injection MORNING (pen) methylPREDN 2021- No [id number] follow [facility] ISolone 01-[address] (Medrol, 00:00: 04:59 directions [facility],) 4 mg 00 :00 l tablet pen needle, 2021- No USE WITH M ethodi diabetic 31 01-06-[address] gauge x 00:00: 00:00 DAILY Hospita 12/04" 00 :00 l needle amLODIPine 2021- No TAKE 1 Meth maricel (NORVASC) 5 11-13- TABLET BY st mg tablet 00:00: 00:00 MOUTH Hospit a 00 :00 NIGHTLY l glimepiride 2021- No [id number] TAKE ONE [facility] (AMARYL) 4 11-12- TABLET BY st MG tablet 00:00: 00:00 MOUTH Hospit a 00 :00 TWICE A l DAY WITH BREAKFAST AND DINNER Lantus 2021- No INJECT 30 Metho di Solostar 11-08-[address] U-100 00:00: 00:00 UNDER THE Hospit a Insulin 100 00 :00 SKIN EVERY l unit/mL MORNING injection (pen) metoprolol 2021- No TAKE ONE Me thodi succinate 11-07- TABLET BY st XL 00:00: 00:00 MOUTH [facility]ospita (TOPROL-XL) 00 :00 EVERY l 50 mg 24 hr MORNING tablet benazepriL 2021- No [id number] TAKE ONE [facility] (LOTENSIN) 2-14 -[address] 20 MG 00:00: 00:00 MOUTH [facility]ospita tablet 00 :00 DAILY l metFORMIN 2021- No [id number] TAKE TWO [facility] XR 10-28 05-[address] (GLUCOPHAGE 00:00: 00:00 MOUTH Hosp antoine -XR) 500 mg 00 :00 TWICE A l 24 hr DAY tablet doxycycline Yes 50mg Q24H Take 50 mg [facility] -skin 1-[address] cleanser 08:27: daily as Hospi ta no19 50 mg 44 needed l kit (prn rosacea flare ups). simvastatin Yes 10mg QD Take 10 mg [facility] (ZOCOR) 10 -[address] MG tablet 08:27: nightly. Hosp antoine 44 l pen needle, Yes USE WITH Me thodi diabetic 31 1-[address] gauge x 00:00: DAILY Hospita 316" 00 l needle pen needle, 2021- No USE WITH M ethodi diabetic 31 1-10 04-[address] gauge x 00:00: 00:00 DAILY Hospita 3/16" 00 :00 l needle glimepiride Yes [id number] TAKE ONE [facility] (AMARYL) 4 1-[address] MG tablet 00:00: MOUTH [facility]ospita 00 TWICE A l DAY WITH BREAKFAST AND DINNER glimepiride 2021- No [id number] TAKE ONE [facility] (AMARYL) 4 1-03 - TABLET BY st MG tablet 00:00: 00:00 MOUTH Hospit a 00 :00 TWICE A l DAY WITH BREAKFAST AND DINNER metoprolol 2020-09 No 25mg QD Take 1 Meth maricel succinate 11-03- tablet (25 st XL 00:00: 05:59 mg total) Hospita (TOPROL-XL) 00 :00 by mouth l 25 mg 24 hr daily. tablet metoprolol 2020-09- No 25mg QD Take 1 Meth maricel succinate 11-03- tablet (25 st XL 00:00: 00:00 mg total) [facility]ospita (TOPROL-XL) 00 :00 by mouth l 25 mg 24 hr daily. tablet atorvastati 2020-09 Yes TAKE ONE Me [facility]odi n (LIPITOR) 2-[address] 40 mg 00:00: MOUTH ONCE Hospit a tablet 00 NIGHTLY l atorvastati 2020-09- No TAKE ONE M ethodi n (LIPITOR) 2-10 - TABLET BY st 40 mg 00:00: 00:00 MOUTH ONCE Hospi ta tablet 00 :00 NIGHTLY l amLODIPine 2020-09 Yes 5mg QD Take 1 Metho di (NORVASC) 5 - tablet (5 st mg tablet 00:00: mg total) Hos aravind 00 by mouth l nightly. amLODIPine 2020-09- No 5mg QD Take 1 Meth maricel (NORVASC) 5 10-13- tablet (5 st mg tablet 00:00: 00:00 mg total) Ho spita 00 :00 by mouth l nightly. clopidogreL 2020-09 No 75mg QD Take 1 Met hodi (PLAVIX) 75 -08 31-13 tablet (75 s t mg tablet 00:00: 05:59 mg total) Ho spita 00 :00 by mouth l daily. clopidogreL 2020-09- No 75mg QD Take 1 Met hodi (PLAVIX) 75 -12 11-13 tablet (75 s t mg tablet 00:00: 05:59 mg total) Ho spita 00 :00 by mouth l daily. metFORMIN 2020-09 Yes [id number] TAKE TWO [facility] XR 1-[address] (GLUCOPHAGE 00:00: MOUTH Hospi ta -XR) 500 mg 00 TWICE A l 24 hr DAY tablet metFORMIN 2020-09- No [id number] TAKE TWO [facility] XR 1-08 02-[address] (GLUCOPHAGE 00:00: 00:00 MOUTH Hosp antoine -XR) 500 mg 00 :00 TWICE A l 24 hr DAY tablet Lantus 2020-09 Yes INJECCT 30 Metho di Solostar 1-[address] U-100 00:00: UNDER THE [facility]ospita Insulin 100 00 SKIN EVERY l unit/mL MORNING injection (pen) Lantus 2020-09- No INJECCT 30 Meth maricel Solostar 1-03 02-[address] U-100 00:00: 00:00 UNDER THE Hospit a Insulin 100 00 :00 SKIN EVERY l unit/mL MORNING injection (pen) furosemide Yes TAKE ONE Met hodi (LASIX) 20 9-[address] mg tablet 00:00: MOUTH [facility]ospita 00 EVERY l MORNING furosemide Yes TAKE ONE Met hodi (LASIX) 20 9-[address] mg tablet 00:00: MOUTH [facility]osp[facility] 00 EVERY l MORNING metoprolol 2020- No TAKE ONE Me thodi succinate - 11-[address] XL 00:00: 00:00 MOUTH [facility]ospita (TOPROL-XL) 00 :00 EVERY l 50 mg 24 hr MORNING tablet metoprolol 2020- No TAKE ONE Me thodi succinate - 11-[address] XL 00:00: 00:00 MOUTH [facility]ospita (TOPROL-XL) 00 :00 EVERY l 50 mg 24 hr MORNING tablet pen needle, 2021- No USE WITH M ethodi diabetic 31 -13 10-[address] gauge x 00:00: 00:00 DAILY Hospita 12/04" 00 :00 l needle pen needle, 2021- No USE WITH M ethodi diabetic 31 -13 10-[address] gauge x 00:00: 00:00 DAILY [facility]ospita 12/04" 00 :00 l needle Lantus 2020- No INJECCT 30 Meth maricel Solostar - 11-[address] U-100 00:00: 00:00 UNDER THE Hospit a Insulin 100 00 :00 SKIN EVERY l unit/mL MORNING injection (pen) Lantus 2020- No INJECCT 30 Meth maricel Solostar - 11-[address] U-100 00:00: 00:00 UNDER THE Hospit a Insulin 100 00 :00 SKIN EVERY l unit/mL MORNING injection (pen) insulin 2020- No [id number] INJECCT 30 [facility] GLARGINE 8-27 09-[address] (Basaglar 00:00: 00:00 UNDER THE Ho spita KwikPen 00 :00 SKIN EVERY l U-100 MORNING Insulin) 100 unit/mL injection (pen) fluticasone Yes [id number] USE TWO [facility] propionate 8-[address] (FLONASE) 00:00: EACH Hospita 50 00 NOSTRIL l mcg/actuati DAILY on nasal spray OneTouch Yes TEST TWO Metho di Ultra Test 8-[address] strip test 00:00: DAY [facility]ospita strips 00 l fluticasone Yes [id number] USE TWO [facility] propionate 8-[address] (FLONASE) 00:00: EACH Hospita 50 00 NOSTRIL l mcg/actuati DAILY on nasal spray OneTouch Yes TEST TWO Metho di Ultra Test 8-[address] strip test 00:00: DAY [facility]ospita strips 00 l glimepiride 2021- No [id number] TAKE ONE [facility] (AMARYL) 4 05-[address] MG tablet 00:00: 00:00 MOUTH Hospit a 00 :00 TWICE A l DAY WITH BREAKFAST AND DINNER glimepiride 2021- No [id number] TAKE ONE [facility] (AMARYL) 4 05-[address] MG tablet 00:00: 00:00 MOUTH Hospit a 00 :00 TWICE A l DAY WITH BREAKFAST AND DINNER benazepriL Yes [id number] TAKE ONE [facility] (LOTENSIN) 8-[address] 20 MG 00:00: MOUTH [facility]ospita tablet 00 DAILY l benazepriL 2021- No [id number] TAKE ONE [facility] (LOTENSIN) 8-03 11- TABLET BY st 20 MG 00:00: 00:00 MOUTH [facility]ospita tablet 00 :00 DAILY l metFORMIN 2020- No [id number] TAKE TWO [facility] XR -08 31- TABLETS BY st (GLUCOPHAGE 00:00: 00:00 MOUTH Hosp antoine -XR) 500 mg 00 :00 TWICE A l 24 hr DAY tablet metFORMIN 2020- No [id number] TAKE TWO [facility] XR -08 31- TABLETS BY st (GLUCOPHAGE 00:00: 00:00 MOUTH Hosp antoine -XR) 500 mg 00 :00 TWICE A l 24 hr DAY tablet benazepriL 2020- No [id number] TAKE ONE [facility] (LOTENSIN) -08 28-[address] 20 MG 00:00: 00:00 MOUTH [facility]ospita tablet 00 :00 DAILY l OneTouch 2020- No TEST SUGAR Me thodi Ultra Test 04-[address] strip test 00:00: 00:00 A DAY Hospi ta strips 00 :00 l Basaglar 2020- No [id number] INJECT 30 [facility] KwikPen 04-15- UNITS st U-100 00:00: 00:00 UNDER THE Hospit a Insulin 100 00 :00 SKIN EVERY l unit/mL (3 MORNING mL) injection (pen) glimepiride 2020- No [id number] TAKE ONE [facility] (AMARYL) 4 04-[address] MG tablet 00:00: 00:00 MOUTH Hospit a 00 :00 TWICE A l DAY WITH BREAKFAST AND DINNER glimepiride 2020- No [id number] TAKE ONE [facility] (AMARYL) 4 03-[address] MG tablet 00:00: 00:00 MOUTH Hospit a 00 :00 TWICE A l DAY WITH BREAKFAST AND DINNER Basaglar 2020- No [id number] INJECT 30 [facility] KwikPen 6- 07-[address] U-100 00:00: 00:00 UNDER THE Hospit a Insulin 100 00 :00 SKIN EVERY l unit/mL (3 MORNING mL) injection (pen) insulin 2020- No [id number] INJECT 30 [facility] GLARGINE -24 06-[address] (Basaglar 00:00: 00:00 UNDER THE [facility] spita KwikPen 00 :00 SKIN EVERY l U-100 MORNING Insulin) 100 unit/mL injection (pen) cetirizine Yes [id number] TAKE ONE [facility] (ZyrTEC) 10 5-[address] MG tablet 00:00: MOUTH [facility]ospita 00 EVERY l EVENING FOR ALLERGY SYMPTOMS cetirizine Yes [id number] TAKE ONE [facility] (ZyrTEC) 10 5-[address] MG tablet 00:00: MOUTH [facility]ospita 00 EVERY l EVENING FOR ALLERGY SYMPTOMS benazepriL 2020- No [id number] TAKE ONE [facility] (LOTENSIN) 5-18 08-[address] 20 MG 00:00: 00:00 MOUTH [facility]ospita tablet 00 :00 DAILY l glimepiride 2020- No [id number] TAKE ONE [facility] (AMARYL) 4 -18 07-[address] MG tablet 00:00: 00:00 MOUTH Hospit a 00 :00 TWICE A l DAY WITH BREAKFAST AND DINNER atorvastati 2020- No 40mg QD Take 1 Met hodi n (LIPITOR) 5-17 10-27 tablet (40 s t 40 mg 00:00: 00:00 mg total) Hospit a tablet 00 :00 by mouth l nightly. atorvastati 2020- No 40mg QD Take 1 Met hodi n (LIPITOR) 5-17 10-27 tablet (40 s t 40 mg 00:00: 00:00 mg total) Hospit a tablet 00 :00 by mouth l nightly. metFORMIN 2020- No [id number] TAKE TWO [facility] XR -17 -[address] (GLUCOPHAGE 00:00: 00:00 MOUTH Hosp antoine -XR) 500 mg 00 :00 TWICE A l 24 hr DAY tablet atorvastati 2020- No TAKE ONE M ethodi n (LIPITOR) 4-15 -[address] 40 mg 00:00: 00:00 MOUTH ONCE Hospi ta tablet 00 :00 NIGHTLY l benazepriL 2020- No [id number] TAKE ONE [facility] (LOTENSIN) 3-05 -[address] 20 MG 00:00: 00:00 MOUTH Hospita tablet 00 :00 DAILY l albuterol Yes [id number] 2{puff} Q6H Inhale 2 [facility] (ProAir 3-[address] HFA) 90 00:00: every 6 Hospita mcg/actuati 00 (six) l on inhaler hours as needed for wheezing. And SOB albuterol Yes [id number] 2{puff} Q6H Inhale 2 [facility] (ProAir 3-[address] HFA) 90 00:00: every 6 Hospita mcg/actuati 00 (six) l on inhaler hours as needed for wheezing. And SOB fluticasone No [id number] 100ug QD 2 sprays [facility] propionate 11-2025 ([address] (Flonase 00:00: 00:00 total) by Hos aravind Allergy 00 :00 Each Nare l Relief) 50 route mcg/actuati daily. on nasal spray cetirizine [id number] 10mg QD Take 1 [facility] (ZyrTEC) 10 11-20-18 tablet (10 s t MG tablet 00:00: 00:00 mg total) Ho spita 00 :00 by mouth l daily. 1 tab daily in the evening for allergy symptoms amoxicillin No [id number] 500mg Q.5D Take 1 [facility] -pot 11-20-[address] clavulanate 00:00: 05:59 (500 mg Ho spita (Augmentin) 00 :00 total) by l 500-125 mg mouth 2 per tablet (two) times a day for 7 days. predniSONE No [id number] 2 tab [facility] (DELTASONE) 11-20-[address] 10 mg 00:00: 05:59 2 days Hospita tablet 00 :00 than 1 tab l daily for 2 days furosemide 2020- No TAKE ONE Me thodi (LASIX) 20 11-[address] mg tablet 00:00: 00:00 MOUTH Hospit a 00 :00 EVERY l MORNING metoprolol 2020- No TAKE ONE Me thodi succinate 11-[address] XL 00:00: 00:00 MOUTH [facility]ospita (TOPROL-XL) 00 :00 EVERY l 50 mg 24 hr MORNING tablet glimepiride 2020- No [id number] TAKE ONE [facility] (AMARYL) 4 -18 -[address] MG tablet 00:00: 00:00 MOUTH Hospit a 00 :00 DAILY WITH l BREAKFAST AND 1 TABLET AT DINNER metFORMIN 2020- No [id number] TAKE TWO [facility] XR 2-18 05-[address] (GLUCOPHAGE 00:00: 00:00 MOUTH Hosp antoine -XR) 500 mg 00 :00 TWICE A l 24 hr DAY tablet pen needle, 2020- No USE WITH M ethodi diabetic 31 2-08 09-[address] gauge x 00:00: 00:00 ONCE DAILY Hos aravind 3" 00 :00 l needle azithromyci 2020- No [id number] 500mg QD Take 2 Method[facility] n 203 03-[address] (Zithromax 00:00: 00:00 (500 mg Hos aravind Z-Dandre) 250 00 :00 total) by l MG tablet mouth daily. Take 2 tablets the first day, then 1 tablet daily for 4 days. atorvastati No 40mg QD Take 1 Met hodi n (LIPITOR) 10-08-15 tablet (40 s t 40 mg 00:00: 00:00 mg total) Hospit a tablet 00 :00 by mouth l nightly. glimepiride 2019-09 No [id number] TAKE ONE [facility] (AMARYL) 4 -[address] MG tablet 00:00: 00:00 MOUTH Hospit a 00 :00 DAILY WITH l BREAKFAST AND 1 TABLET WITH DINNER benazepriL 2019-09- No [id number] TAKE ONE [facility] (LOTENSIN) 10-13-[address] 20 MG 00:00: 00:00 MOUTH Hospita tablet 00 :00 DAILY l amLODIPine 2019-09 No 5mg QD Take 1 Meth maricel (NORVASC) 5 10-08-23 tablet (5 st mg tablet 00:00: 00:00 mg total) Ho spita 00 :00 by mouth l nightly. amLODIPine 2019-09 No 5mg QD Take 1 Meth maricel (NORVASC) 5 18 -23 tablet (5 st mg tablet 00:00: 00:00 mg total) Ho spita 00 :00 by mouth l nightly. pen needle, 2019-09- No USE WITH M ethodi diabetic 31 0-15 -[address] gauge x 00:00: 00:00 ONCE DAILY Hos aravind 316" 00 :00 l needle insulin 2020- No [id number] INJECT 30 [facility] GLARGINE 9-24 05-[address] (Basaglar 00:00: 00:00 UNDER THE Ho spita KwikPen 00 :00 SKIN EVERY l U-100 MORNING Insulin) 100 unit/mL injection (pen) albuterol 2020- No [id number] 2{puff} Q6H Inhale 2 [facility] (ProAir 06-14 03-[address] HFA) 90 00:00: 00:00 every 6 Hospit a mcg/actuati 00 :00 (six) l on inhaler hours as needed for wheezing. And SOB furosemide 2020- No Method i (LASIX) 20 05-23 st mg tablet 00:00: 00:00 Hospita 00 :00 l metoprolol 2020- No Method i succinate 05-23 st XL 00:00: 00:00 Hospita (TOPROL-XL) 00 :00 l 50 mg 24 hr tablet benazepriL Yes Univers 20 mg 6-11 ity of tablet 00:00: [place] [facility] glimepiride Yes Univer s 4 mg tablet 6-11 ity of 00:00: [facility] Insulin Yes INJECT 27 Unive rs Glargine 6-11 UNITS ity of (BASAGLAR 00:00: UNDER THE Jason as KWIKPEN 00 SKIN EVERY Medica l U-100 MORNING Branch INSULIN) 100 unit/mL (3 mL) injection benazepriL Yes Univers 20 mg 6-11 ity of tablet 00:00: [facility] glimepiride 2019- Yes Univer s 4 mg tablet 6-11 ity of 00:00: [place] [facility] Insulin Yes INJECT 27 Unive rs Glargine 6-11 UNITS ity of (BASAGLAR 00:00: UNDER THE Jason as KWIKPEN 00 SKIN EVERY Medica l U-100 MORNING Branch INSULIN) 100 unit/mL (3 mL) injection metformin Yes Univers ER 500 mg 5-24 ity of 24 hr 00:00: [place] tablet [facility] metformin 2019-0 Yes Univers ER 500 mg 5-24 ity of 24 hr 00:00: [place] tablet [facility] atorvastati 2019-0 Yes Univer s n 40 mg 5-22 ity of tablet 00:00: [place] [facility] atorvastati Yes Univer s n 40 mg 5-22 ity of tablet 00:00: [place] [facility] triamcinolo Yes Univer s ne 01-16 ity of acetonide 00:00: [place] 0.1 % cream [facility] triamcinolo Yes Univer s ne 01-16 ity of acetonide 00:00: [place] 0.1 % cream [facility] metFORMIN 2020- No [id number] 1000mg Q.5D Take 2 [facility] XR 2-26 02-[address] (GLUCOPHAGE 00:00: 00:00 (1,000 mg Hospita -XR) 500 mg 00 :00 total) by l 24 hr mouth 2 tablet (two) times a day. ONETOUCH 2020- No Test blood Me thodi ULTRA BLUE 10-[address] TEST STRIP 00:00: 00:00 twice a Hos aravind strip test 00 :00 day E11.65 l strips aspirin Yes 81mg QD Take 1 [facility] (ECOTRIN) 9-30 tablet (81 st 81 MG 00:00: mg total) Hospita enteric 00 by mouth l coated daily. tablet aspirin 81 Yes 81mg Take 81 mg U nivers mg EC 9-30 by mouth. ity of tablet 00:00: [facility] aspirin 81 Yes 81mg Take 81 mg U nivers mg EC 9-30 by mouth. ity of tablet 00:00: [place] [facility] aspirin Yes 81mg QD Take 1 [facility] (ECOTRIN) 9-30 tablet (81 st 81 MG 00:00: mg total) Hospita enteric 00 by mouth l coated daily. tablet insulin Yes USE DAILY Metho di syringe-nee 7-05 st dle U-100 00:00: Hospita 0.3 mL 31 00 l gauge x 5/16" syringe insulin Yes USE DAILY Metho di syringe-nee 7-05 st dle U-100 00:00: Hospita 0.3 mL 31 00 l gauge x 5/16" syringe diphenhydrA Yes 1 tab as Me thodi MINE 5-[address] (BENADRYL 00:00: allergy Hospi ta ALLERGY) 25 00 l mg tablet diphenhydrA 2021- No 1 tab as M ethodi MINE 5-12 07-[address] (BENADRYL 00:00: 00:00 allergy Hosp antoine ALLERGY) 25 00 :00 l mg tablet fluticasone 2020- 100ug QD 2 sprays [facility] propionate 01-20 ([address] (FLONASE 00:00: 00:00 total) by Hos aravind ALLERGY 00 :00 Each Nare l RELIEF) 50 route mcg/actuati daily. on nasal spray Immunizations Ordered Immunization Filled Immunization Date Status Commen ts Source Name Name PFIZER COVID-19 MRNA 2021-10-09 Completed Meth odist VACCINATION 00:00:00 [facility] FLUZONE HIGH-DOSE PF 2021-06-15 Completed Meth odist 00:00:00 [facility] FLUZONE HIGH-DOSE PF 2021-06-15 Completed Meth odist 00:00:00 [facility] PFIZER COVID-19 MRNA 2020-12-24 Completed Meth odist VACCINATION 00:00:00 [facility] PFIZER COVID-19 MRNA 2020-12-24 Completed Meth odist VACCINATION 00:00:00 [facility] PFIZER COVID-19 MRNA 2020-12-06 Completed Meth odist VACCINATION 00:00:00 [facility] PFIZER COVID-19 MRNA 2020-12-06 Completed Meth odist VACCINATION 00:00:00 [facility] FLUZONE HIGH-DOSE PF 2020-05-19 Completed Meth odist 00:00:00 [facility] FLUZONE HIGH-DOSE PF 2020-05-19 Completed Meth odist 00:00:00 [facility] FLUBLOK QUAD PF 2019-07-08 Completed Christianity 00:00:00 [facility] FLUBLOK QUAD PF 2019-07-08 Completed [facility] 00:00:00 [facility] Zoster Vaccine 2019-05-12 Completed [facility] Recombinant 00:00:00 [facility] Zoster Vaccine 2019-05-12 Completed [facility] Recombinant 00:00:00 [facility] Zoster Vaccine 2018-12-01 Completed [facility] Recombinant 00:00:00 [facility] Zoster Vaccine 2018-12-01 Completed [facility] Recombinant 00:00:00 [facility] Pneumococcal 2018-06-07 Completed [facility] Polysaccharide 00:00:00 [facility] Pneumococcal 2018-06-07 Completed [facility] Polysaccharide 00:00:00 [facility] Pneumococcal 2017-06-13 Completed [facility] Conjugate 13-Valent 00:00:00 Hospi renetta Pneumococcal 2017-06-13 Completed [facility] Conjugate 13-Valent 00:00:00 Hospi renetta Vital Signs Vital Name Observation Time Observation Value Comments Source Systolic blood 2020-04-05 18:08:00 165 mm[Hg] Univer sity of pressure [facility] Diastolic blood 2020-04-05 18:08:00 76 mm[Hg] Unive rsity of pressure [facility] Heart rate 2020-04-05 18:08:00 98 /min [facility] Body temperature 2020-04-05 18:08:00 36.89 Pauly [facility] Respiratory rate 2020-04-05 18:08:00 18 /min [facility] Body height 2020-04-05 18:08:00 177.8 cm [facility] Body weight 2020-04-05 18:08:00 113.399 kg [facility] BMI 2020-04-05 18:08:00 35.87 kg/m2 [facility] Oxygen saturation in 2020-04-05 18:08:00 97 /min University of Arterial blood by [facility] Pulse oximetry Branch Systolic blood 2020-04-05 18:08:00 165 mm[Hg] Univer sity of pressure [facility] Diastolic blood 2020-04-05 18:08:00 76 mm[Hg] Unive rsity of pressure [facility] Heart rate 2020-04-05 18:08:00 98 /min [facility] Body temperature 2020-04-05 18:08:00 36.89 Pauly [facility] Respiratory rate 2020-04-05 18:08:00 18 /min [facility] Body height 2020-04-05 18:08:00 177.8 cm [facility] Body weight 2020-04-05 18:08:00 113.399 kg [facility] BMI 2020-04-05 18:08:00 35.87 kg/m2 [facility] Oxygen saturation in 2020-04-05 18:08:00 97 /min University of Arterial blood by [facility] claudine Pulse oximetry Branch Systolic blood 2022-06-25 14:54:00 145 mm[Hg] [facility] Di[facility] blood 2022-06-25 14:54:00 77 mm[Hg] [facility] pressure Heart rate 2022-06-25 14:54:00 73 /min [facility] Body height 2022-06-25 14:54:00 177.8 cm [facility] Body weight 2022-06-25 14:54:00 112.492 kg [facility] BMI 2022-06-25 14:54:00 35.58 kg/m2 [facility] Oxygen saturation in 2022-05-23 15:53:00 99 /min [facility] Arterial blood by Pulse oximetry Body temperature 2022-03-26 16:48:00 37 Pauly [facility] Systolic blood 2021-10-07 14:25:00 130 mm[Hg] [facility] pressure Diastolic blood 2021-10-07 14:25:00 86 mm[Hg] [facility] pressure Heart rate 2021-10-07 14:25:00 75 /min [facility] Body temperature 2021-10-07 14:25:00 36.67 Pauly [facility] Body height 2021-10-07 14:25:00 177.8 cm [facility] Body weight 2021-10-07 14:25:00 108.863 kg [facility] BMI 2021-10-07 14:25:00 34.44 kg/m2 [facility] Oxygen saturation in 2021-10-07 14:25:00 98 /min [facility] Arterial blood by Pulse oximetry Respiratory rate 2021-08-01 14:08:53 18 /min [facility] Procedures Procedure Date / Time Performing Clinician Source Performed US THYROID 2022-07-01 19:31:[facility] THYROID STIMULATING 2022-06-25 15:44:00 Milton Tabares [facility] HORMONE T4, FREE 2022-06-25 15:44:00 [facility] ECG 12-LEAD 2022-05-23 16:05:05 Teresa Hernandez spital MRI CERVICAL SPINE WO 2022-04-10 13:36:02 Rene Fine [facility] CONTRAST MRI LUMBAR SPINE WO 2022-04-10 13:35:40 Rene Fine [facility] CONTRAST POC GLYCOSYLATED 2022-03-26 17:07:00 [place], [facility] HEMOGLOBIN (HGB A1C) XR LUMBAR SPINE 2 OR 3 VW 2022-01-16 15:34:26 Rene Fine [facility] LIPID PANEL 2022-01-06 14:31:00 [facility] ospital THYROID STIMULATING 2022-01-06 14:31:00 [facility] HORMONE MICROALBUMIN / CREATININE 2022-01-06 14:31:00 [facility] URINE RATIO HEMOGLOBIN & HEMATOCRIT 2022-01-06 14:31:00 [facility] PROSTATE SPECIFIC ANTIGEN 2022-01-06 14:31:00 [facility] POC GLYCOSYLATED 2022-01-06 13:26:00 [facility] HEMOGLOBIN (HGB A1C) HC COMPLETE BLD COUNT 2021-09-19 18:30:00 [facility] W/AUTO DIFF BASIC METABOLIC PANEL 2021-09-19 18:30:00 [facility] ESTIMATED GFR 2021-09-19 18:30:00 [facility] ECG 12-LEAD 2021-09-02 16:02:57 Teresa Hernandez spital TTE COMPLETE, W CONTRAST, 2021-09-02 14:00:00 [facility] W DOPPLER ([id number]) Nas POC GLUCOSE 2021-08-01 13:42:00 [facility] Nas ECG 12-LEAD 2021-08-01 12:16:02 [facility] BASIC METABOLIC PANEL 2021-08-01 12:13:00 [facility] [facility] HEMOGRAM 2021-08-01 12:13:00 [facility] ESTIMATED GFR 2021-08-01 12:13:00 [facility] POC GLUCOSE 2021-08-01 11:44:00 Mehdi Joel spital Nas POC GLUCOSE 2021-08-01 07:38:00 Mehdi Joel Ho spital Nas POC GLUCOSE 2021-08-01 01:35:00 Atkins, Mehdi Dietz Ho spital Nas POC GLUCOSE 2021-07-31 23:08:00 Atkins, Mehdi Dietz Ho spital Nas POC GLUCOSE 2021-07-31 18:14:00 [facility] ECG 12-LEAD 2021-07-31 14:13:[address] [facility] POC GLUCOSE 2021-07-31 14:10:00 Atvanessa, Mehdi Dietz spital Nas TTE COMPLETE, W CONTRAST, 2021-07-31 14:00:00 Niyah Fernandez [facility] W DOPPLER ([id number]) POC GLUCOSE 2021-07-31 10:55:00 Atvanessa, Mehdi Dietz spital Nas COVID-19 ANTI-SPIKE IGG 2021-07-31 09:59:00 Atvanessa [facility] ANTIBODY TITER Nas CBC HEMOGRAM 2021-07-31 09:59:00 Niyah Fernandez spital BASIC METABOLIC PANEL 2021-07-31 09:59:00 Niyah Fernandez [facility] MAGNESIUM LEVEL 2021-07-31 09:59:00 [facility] 2021-07-31 09:59:00 Niyah Fernandez ospital IONIZED CALCIUM 2021-07-31 09:59:00 [facility] SEROLOGY PATIENT 2021-07-31 09:59:00 Atvanessa [facility] SURVEILLANCE Nas PROTHROMBIN TIME WITH INR 2021-07-31 09:59:00 Eva Seay [address] ESTIMATED GFR 2021-07-31 09:59:00 Niyah Fernandez spital POC GLUCOSE 2021-07-31 06:55:00 Atkins, Mehdi Dietz spital Nas POC GLUCOSE 2021-07-31 02:43:00 Atkins, Mehdi Dietz spital Nas POC GLUCOSE 2021-07-30 18:50:00 [facility]kins[facility] ECG 12-LEAD 2021-07-30 18:07:46 Niyah Fernandez spital XR CHEST 1 VW PORTABLE 2021-07-30 18:04:46 Niyah Fernandez [facility] LACTIC ACID LEVEL 2021-07-30 17:02:[address] [facility] BASIC METABOLIC PANEL 2021-07-30 17:02:00 Niyah Fernandez [facility] HC COMPLETE BLD COUNT 2021-07-30 17:02:00 Niyah Fernandez [facility] W/AUTO DIFF MAGNESIUM LEVEL 2021-07-30 17:02:00 Niyah Fernandez spital PHOSPHORUS LEVEL 2021-07-30 17:02:00 Niyah Fernandez ospital PROTHROMBIN TIME WITH INR 2021-07-30 17:02:00 Niyah Fernandez [facility] PARTIAL THROMBOPLASTIN 2021-07-30 17:02:00 Niyah Fernandez [facility] TIME (PTT) ESTIMATED GFR 2021-07-30 17:02:00 [facility] ARTERIAL BLOOD GAS 2021-07-30 17:02:00 Jim [facility] IONIZED CALCIUM, ARTERIAL 2021-07-30 17:02:00 Niyah Fernandez [facility] OR [place] < 1 HOUR 2021-07-30 16:30:00 Mehdi Joel [facility] spital Nas EP INSERTION OR 2021-07-30 16:14:00 Ajit [facility] REPLACEMENT TEMPORARY TRANSVENOUS PACEMAKER LEADS CV AORTIC VALVULOPLASTY 2021-07-30 16:14:00 Ajit [facility] CV AORTOGRAM ABDOMINAL 2021-07-30 16:14:00 Ajit [facility] AORTA ARTERIAL BLOOD GAS, 2021-07-30 15:37:00 Ankita [facility] CORRECTED Nas POTASSIUM, SYRINGE 2021-07-30 15:37:00 Ankita [facility] Nas SODIUM LEVEL, SYRINGE 2021-07-30 15:37:00 Ankita [facility] Nas HEMOGLOBIN, SYRINGE 2021-07-30 15:37:00 Atvanessa, [facility] IONIZED CALCIUM, ARTERIAL 2021-07-30 15:37:00 [facility] GLUCOSE LEVEL, SYRINGE 2021-07-30 15:37:00 [facility] MAGNESIUM LEVEL 2021-07-30 15:37:00 Mehdi Joel spital Nas ACTIVATED CLOTTING TIME 2021-07-30 15:35:00 [facility] ANESTHES[facility] SHAHEEN 2021-07-30 15:28:55 Ash Caballero spital ACTIVATED CLOTTING TIME 2021-07-30 15:09[facility]00 [facility] 2021-07-30 15:00:00 Ankita [facility] ARTERIAL LINE 2021-07-30 14:50:23 Ash Caballero spital ARTERIAL BLOOD GAS, 2021-07-30 14:18:00 Ankita [facility] CORRECTED [place] POTASSIUM, SYRINGE 2021-07-30 14:18:00 [facility] SODIUM LEVEL, SYRINGE 2021-07-30 14:18:00 Ankita Mehdi [facility] HEMOGLOBIN, SYRINGE 2021-07-30 14:18:00 [facility] IONIZED CALCIUM, ARTERIAL 2021-07-30 14:18:00 [facility] 2021-07-30 14:18:00 Mehdi Joel spital Nas GLUCOSE LEVEL, SYRINGE 2021-07-30 14:18:00 Ankita [facility] Nas MO AN ELECTIVE 2021-07-30 14:08:00 Ash Caballero spital ENDOTRACHEAL AIRWAY TAVR FOR SURGERY 2021-07-30 13:14:00 Mehdi Joel ospital Nas POC GLUCOSE 2021-07-30 12:54:00 Mehdi Joel spital Nas XR CHEST 2 VW 2021-07-29 18:49:13 Mehdi Joel spital Nas ECG PRE/POST OP 2021-07-29 18:32:07 Mehdi Joel spital Nas TYPE AND SCREEN 2021-07-29 17:40:00 Mehdi Joel spital Nas URINE CULTURE 2021-07-29 16:53:00 Mehdi Joel spital Ans URINALYSIS SCREEN AND 2021-07-29 16:53:00 Ankita [facility] MICROSCOPY, WITH REFLEX Nas TO CULTURE COVID-19 QUALITATIVE 2021-07-29 16:52:00 Mehdi Joel [facility] RT-PCR Nas MAGNESIUM LEVEL 2021-07-29 16:52:00 Mehdi Joel spital Nas HEMOGLOBIN A1C 2021-07-29 16:52:00 Mehdi Joel spital Nas PARTIAL THROMBOPLASTIN 2021-07-29 16:52:00 Mehdi Joel [facility] TIME (PTT) Nas PROTHROMBIN TIME WITH INR 2021-07-29 16:52:00 Mehdi oJel [facility] Nas COMPREHENSIVE METABOLIC 2021-07-29 16:52:00 Mehdi Joel [facility] PANEL Nas HC COMPLETE BLD COUNT 2021-07-29 16:52:00 [facility] W[facility]FF Nas ESTIMATED GFR 2021-07-29 16:52:00 Mehdi Joel spital Nas CV LEFT HEART CATH LV 2021-07-17 21:13:53 [facility] POC GLUCOSE 2021-07-17 19:46:00 Marilyn Wetzel H ospital TYPE AND SCREEN 2021-07-17 13:20:00 Marilyn Wetzel H ospital COVID-19 QUALITATIVE 2021-07-15 12:47:00 Marilyn Wetzel [facility] RT-PCR HC COMPLETE BLD COUNT 2021-07-15 12:47:00 Marilyn Wetzel [facility] W/AUTO DIFF BASIC METABOLIC PANEL 2021-07-15 12:47:00 [facility]IAL [facility]LASTIN 2021-07-15 12:47:00 [facility] TIME (PTT[facility] PROTHROMBIN TIME WITH INR 2021-07-15 12:47:00 Marilyn Wetzel [facility] ESTIMATED GFR 2021-07-15 12:47:00 [facility] ospital POC GLYCOSYLATED 2021-07-04 17:49:00 [facility] HEMOGLOBIN (HGB A1C) CV CTA TAVR WORKUP (CTA 2021-07-03 19:52:19 [facility] CORONARY,CTA THORACIC Nas AORTA,CTA ABDOMEN PELVIS) W CONTRAST POC CREATININE 2021-07-03 16:17:00 [facility] spital Nas ESTIMATED GFR 2021-07-03 16:17:00 [facility] spital Nas TTE COMPLETE, WO 2021-06-10 15:46:57 [facility] CONTRAST, W DOPPLER ([id number]) EYE EXAM 2021-05-24 00:00:00 Provider, [facility] POC GLYCOSYLATED 2020-11-28 15:37:00 [facility] HEMOGLOBIN (HGB A1C) COVID-19 QUALITATIVE 2020-11-21 19:37:00 [facility] RT-PCR Plan of Care Planned Activity Planned Date Details Comments Source Future Scheduled 2022-07-14 HEPATITIS B [facility] ospital Test 16:30:39 VACCINES (1 of 3 - 3-dose series) [code = HEPATITIS B VACCINES (1 of 3 - 3-dose series)] Future Scheduled 2022-07-14 [facility]atitis [facility] Test 16:30:39 screening (procedure) [code = 039785978] Future Scheduled 2022-07-14 COVID-19 VACCINE (4 [facility] Test 16:30:39 - Booster for Pfizer series) [code = COVID-19 VACCINE (4 - Booster for Pfizer series)] Future Scheduled 2022-07-14 DIABETES: RETINAL Method [facility] Test 16:30:39 EYE EXAM [code = DIABETES: RETINAL EYE EXAM] Future Scheduled 2022-07-14 INFLUENZA VACCINE [facility] Test 16:30:39 [code = INFLUENZA VACCINE] Future Scheduled 2022-07-14 [facility] Test 16:30:39 [code = DIABETIC FOOT EXAM] Future Scheduled 2021-10-07 [facility]atitis [facility] Test 17:11:49 screening (procedure) [code = 753765980] Future Scheduled 2021-10-07 COVID-19 VACCINE (3 [facility] Test 17:11:49 - Booster for Pfizer series) [code = COVID-19 VACCINE (3 - Booster for Pfizer series)] Future Scheduled 2021-10-07 DIABETES: RETINAL [facility] Test 17:11:49 EYE EXAM [code = DIABETES: RETINAL EYE EXAM] Future Scheduled 2021-10-07 DIABETIC FOOT EXAM [facility] Test 17:11:49 [code = DIABETIC FOOT EXAM] Encounters Start End Encounter Admission Attending Care Care Encounter Source Date/Time Date/Time Type Type Clinicians Facility Department ID 2022-07-14 2022-07-14 Refvalery Delgado, 1.2.840.1 [id number] Methodi 00:00:00 00:00:[address] 3.430.2.7 Hospit a .3.400865 l .8 2022-07-01 2022-07-01 Outpatient [facility] [id number] [address] [place] [address] 00:00:00 00:00:00 Saran BAHENA5 Method i [facility] 2022-06-25 2022-06-25 Lab Saint 1.2.840.1 [id number] Methodi 10:45:00 10:50:[address] [place] B. 3.430.2.7 Hospi ta .3.877324 l .8 2022-06-25 2022-06-25 Office Saint 1.2.840.1 [id number] Methodi 10:00:00 10:20:00 Visit Shruti 64901.1.[address] [place] B. 3.430.2.7 Hospi ta .3.906394 l .8 2022-06-25 2022-06-25 Outpatient [facility] [id number] [address] [place] [address] 00:00:00 00:00:00 SHRUTI, [address] 2022-06-25 2022-06-25 Outpatient [facility] [id number] Thicket 00:00:00 00:00:00 SHRUTI, [address] 2022-06-25 2022-06-25 Travel 1.2.840.1 1.2.757.307 [id number] Methodi 00:00:00 00:00:[address] 3.430.2.7 0.2.7.3.698 Ho spita .3.867448 084.8 l .8 2022-06-22 2022-06-22 [facility] 1.2.840.1 [id number] Methodi 00:00:00 00:00:00 Only Fredrick 35711.1.[address] 3.430.2.7 Hospit a .3.247211 l .8 2022-06-18 2022-06-18 Refill Arsalanloreta, 1.2.840.1 [id number] Methodi 00:00:00 00:00:[address] 3.430.2.7 Hospit a .3.565865 l .8 2022-05-30 2022-05-30 Telephone Yandy, 1.2.840.1 [id number] Methodi 00:00:00 00:00:[address] 3.430.2.7 Hospit a .3.297536 l .8 2022-05-27 2022-05-27 [facility], 1.2.840.1 [id number] [id number] Methodi 00:00:00 00:00:00 Only Fredrick 67917.1.[address] 3.430.2.7 Hospit a .3.614381 l .8 2022-05-23 2022-05-23 Office Hernandez, 1.2.840.1 [id number] 8854 Methodi 10:40:00 11:21:50 Visit Apoor 44317.1.[address] 3.430.2.7 Hospit a .3.224009 l .8 2022-05-23 2022-05-23 Outpatient HERNANDEZ, [facility] [id number] Thicket 00:00:00 00:00:[address] 2022-05-23 2022-05-23 Travel 1.2.840.1 1.2.105.387 4659 [id number] Methodi 00:00:00 00:00:[address] 3.430.2.7 0.2.7.3.698 Ho spita .3.078564 084.8 l .8 2022-05-11 2022-05-11 [facility] 1.2.840.1 [id number] Methodi 00:00:00 00:00:[address] 3.430.2.7 Hospit a .3.746902 l .8 2022-05-01 2022-05-01 Refill [facility], 1.2.840.1 [id number] Methodi 00:00:00 00:00:[address] 3.430.2.7 Hospit a .3.451711 l .8 2022-04-10 2022-04-10 [facility], 1.2.840.1 [id number] 17212 Methodi 06:53:34 23:59:00 Encounter Jose 52149.1.[address] Yuan 3.430.2.7 Hospit a .3.043265 l .8 2022-04-10 2022-04-10 [facility] 1.2.840.1 [id number] 30099 Methodi 06:53:22 23:59:00 Encounter Jose 31340.1.[address] Yuan 3.430.2.7 Hospit a .3.164624 l .8 2022-04-10 2022-04-10 Outpatient [facility] [id number] Thicket 00:00:00 00:00:00 JOSE [address] 2022-04-10 2022-04-10 [facility] [id number] Thicket 00:00:00 00:00:00 JOSE Dayana[address] [facility] [address] 2022-04-10 2022-04-10 Refvalery Kebede, 1.2.840.1 [id number] 6253 Methodi 00:00:00 00:00:[address] 3.430.2.7 Hospit a .3.019171 l .8 2022-04-10 2022-04-10 Travel 1.2.840.1 1.2.022.418 3290 [id number] Methodi 00:00:00 00:00:[address] 3.430.2.7 0.2.7.3.698 Ho spita .3.045450 084.8 l .8 2022-04-09 2022-04-09 Tele[facility], 1.2.840.1 [id number] Methodi 00:00:00 00:00:[address] 3.430.2.7 Hospit a .3.388298 l .8 2022-04-02 2022-04-02 Refill Magdaleno, 1.2.840.1 [id number] 28820 Methodi 00:00:00 00:00:[address] 3.430.2.7 Hospit a .3.057258 l .8 2022-03-27 2022-03-27 [facility], 1.2.840.1 [id number] [id number] Methodi 00:00:00 00:00:[address] 3.430.2.7 Hospit a .3.082500 l .8 2022-03-26 2022-03-26 [facility], 1.2.840.1 [id number] 78013 Methodi 11:30:00 12:46:44 Visit Fredrick 73146.1.[address] 3.430.2.7 Hospit a .3.278049 l .8 2022-03-26 2022-03-26 [facility] MANASA, [facility] [id number] Thicket 00:00:00 00:00:[address] 2022-03-26 2022-03-26 Travel 1.2.840.1 1.2.239.174 9242 [id number] Methodi 00:00:00 00:00:[address] 3.430.2.7 0.2.7.3.698 Ho spita .3.485699 084.8 l .8 2022-03-15 2022-03-15 Refill Wetzel, 1.2.840.1 [id number] 1902 Methodi 00:00:00 00:00:00 Marilyn Sanchez 22157.1.1 [address] 3.430.2.7 Hospit a .3.283728 l .8 2022-03-14 2022-03-14 Telephone Cristopher, 1.2.840.1 [id number] Methodi 00:00:00 00:00:[address] 3.430.2.7 Hospit a .3.071345 l .8 2022-03-13 2022-03-13 Refill Manasa, 1.2.840.1 [id number] 43541 Methodi 00:00:00 00:00:[address] 3.430.2.7 Hospit a .3.941108 l .8 2022-03-11 2022-03-11 Travel 1.2.840.1 1.2.188.025 3371 [id number] Methodi 00:00:00 00:00:[address] 3.430.2.7 0.2.7.3.698 Ho spita .3.105260 084.8 l .8 2022-03-10 2022-03-10 Telephone [facility], 1.2.840.1 [id number] 697 [id number] Methodi 00:00:00 00:00:[address] 3.430.2.7 Hospit a .3.106509 l .8 2022-02-10 2022-02-10 Refill Arsalanhoul, 1.2.840.1 [id number] 71739 Methodi 00:00:00 00:00:[address] 3.430.2.7 Hospit a .3.430889 l .8 2022-02-02 2022-02-02 Refill Makhoul, 1.2.840.1 [id number] 26461 Methodi 00:00:00 00:00:[address] 3.430.2.7 Hospit a .3.914376 l .8 2022-01-26 2022-01-26 Refill Arsalanhoul, 1.2.840.1 [id number] Methodi 00:00:00 00:00:[address] 3.430.2.7 Hospit a .3.236768 l .8 2022-01-21 2022-01-21 [facility], 1.2.840.1 [id number] 1013 Methodi 10:15:00 11:06:28 Visit Janes 78101.1.[address] 3.430.2.7 Hospit a .3.979466 l .8 2022-01-21 2022-01-21 [facility] [id number] 648 Thicket 00:00:00 00:00:00 JANES [address] 2022-01-21 2022-01-21 Travel 1.2.840.1 1.2.462.445 6545 [id number] Methodi 00:00:00 00:00:[address] 3.430.2.7 0.2.7.3.698 Ho spita .3.166354 084.8 l .8 2022-01-16 2022-01-16 [facility], 1.2.840.1 [id number] 07470 59508 Methodi 10:18:31 23:59:00 Encounter Jose 48813.1.[address] Yuan 3.430.2.7 Hospit a .3.194437 l .8 2022-01-16 2022-01-16 Office Babatunde, 1.2.840.1 [id number] 9414 Methodi 09:30:00 09:54:32 Visit Rene 69150.1.[address] 3.430.2.7 Hospit a .3.077109 l .8 2022-01-16 2022-01-16 Outpatient [facility] [id number] Thicket 00:00:00 00:00:[address] 2022-01-16 2022-01-16 Outpatient [place], [facility] [id number] 052 Thicket 00:00:00 00:00:[address] JOSE [address] 2022-01-16 2022-01-16 Travel 1.2.840.1 1.2.380.914 0398 [id number] Methodi 00:00:00 00:00:[address] 3.430.2.7 0.2.7.3.698 spita .3.584504 084.8 l .8 2022-01-08 2022-01-08 Telephone [facility], 1.2.840.1 [id number] Methodi 00:00:00 00:00:[address] 3.430.2.7 Hospit a .3.979222 l .8 2022-01-06 2022-01-06 Lab [facility], 1.2.840.1 [id number] 32552 Methodi 09:35:00 09:40:[address] 3.430.2.7 Hospit a .3.827881 l .8 2022-01-06 2022-01-06 Office [facility], 1.2.840.1 [id number] 84594 06089 Methodi 08:15:00 09:05:58 Visit Fredrick 36705.1.[address] 3.430.2.7 Hospit a .3.102619 l .8 2022-01-06 2022-01-06 [facility] [id number] Thicket 00:00:00 00:00:00 FREDRICK [address] 2022-01-06 2022-01-06 Outpatient [facility] [id number] 5386 Thicket 00:00:00 00:00:00 FREDRICK [address] 2022-01-06 2022-01-06 Refill [facility], 1.2.840.1 [id number] 88929 Methodi 00:00:00 00:00:[address] 3.430.2.7 Hospit a .3.940776 l .8 2022-01-06 2022-01-06 Travel 1.2.840.1 1.2.360.739 7166 245181 Methodi 00:00:00 00:00:[address] 3.430.2.7 0.2.7.3.698 Ho spita .3.438751 084.8 l .8 2021-12-23 2021-12-23 Office Wetzel, 1.2.840.1 [id number] 5196 Methodi 10:00:00 11:00:09 Visit Marilyn Sanchez 54312.1.1 676 [address] t 3.430.2.7 Hospit a .3.671560 l .8 2021-12-23 2021-12-23 [facility]patient [facility] [id number] 915 Thicket 00:00:00 00:00:[address] 2021-12-23 2021-12-23 Travel 1.2.840.1 1.2.283.477 6778 324232 Methodi 00:00:00 00:00:[address] 3.430.2.7 0.2.7.3.698 Ho spita .3.763490 084.8 l .8 2021-12-18 2021-12-18 Telephone [facility], 1.2.840.1 [id number] 056 [id number] Methodi 00:00:00 00:00:[address] 3.430.2.7 Hospit a .3.589773 l .8 2021-12-09 2021-12-09 Telephone Tod, 1.2.840.1 [id number] Methodi 00:00:00 00:00:[address] 3.430.2.7 Hospit a .3.295738 l .8 2021-11-13 2021-11-13 Refill [place], 1.2.840.1 [id number] Methodi 00:00:00 00:00:[address] 3.430.2.7 Hospit a .3.092468 l .8 2021-11-12 2021-11-12 Refill [place], 1.2.840.1 [id number] Methodi 00:00:00 00:00:[address] 3.430.2.7 Hospit a .3.812987 l .8 2021-11-08 2021-11-08 Refill [place], 1.2.840.1 [id number] Methodi 00:00:00 00:00:[address] 3.430.2.7 Hospit a .3.738134 l .8 2021-11-07 2021-11-07 Refill Wetzel, 1.2.840.1 [id number] 0693 Methodi 00:00:00 00:00:00 Chew Laura 17974.1.1 530 s t 3.430.2.7 Hospit a .3.498985 l .8 2021-11-03 2021-11-03 Refill [place], 1.2.840.1 [id number] 94433 24967 Methodi 00:00:00 00:00:[address] 3.430.2.7 Hospit a .3.190788 l .8 2021-10-27 2021-10-27 Refill Arsalanhoul, 1.2.840.1 [id number] Methodi 00:00:00 00:00:[address] 3.430.2.7 Hospit a .3.523313 l .8 2021-10-07 2021-10-07 Office Manasa, 1.2.840.1 [id number] 40799 Methodi 08:15:00 08:51:30 Visit Fredrick 19425.1.[address] 3.430.2.7 Hospit a .3.979553 l .8 2021-10-07 2021-10-07 Office Manasa, 1.2.840.1 [id number] 60 Methodi 08:14:22 08:51:30 Visit Fredrick 90832.1.[address] 3.430.2.7 Hospit a .3.637774 l .8 2021-10-07 2021-10-07 Travel 1.2.840.1 1.2.990.925 7642 [id number] Methodi 00:00:00 00:00:[address] 3.430.2.7 0.2.7.3.698 Ho spita .3.951809 084.8 l .8 2021-10-07 2021-10-07 Travel 1.2.840.1 1.2.829.869 6065 677176 Methodi 00:00:00 00:00:[address] 3.430.2.7 0.2.7.3.698 Ho spita .3.556127 084.8 l .8 2021-09-30 2021-09-30 Refill [place], 1.2.840.1 [id number] 32545 Methodi 00:00:00 00:00:[address] 3.430.2.7 Hospit a .3.969253 l .8 2021-09-30 2021-09-30 Refill [place], 1.2.840.1 [id number] 02864 90125 Methodi 00:00:00 00:00:[address] 3.430.2.7 Hospit a .3.524847 l .8 2021-09-22 2021-09-22 Refill [place]akh[place], 1.2.840.1 [id number] 33944 Methodi 00:00:00 00:00:[address] 3.430.2.7 Hospit a .3.112747 l .8 2021-09-22 2021-09-22 Refill [place]akh[place], 1.2.840.1 [id number] 16 Methodi 00:00:00 00:00:[address] 3.430.2.7 Hospit a .3.036995 l .8 2021-09-19 2021-09-19 Multidisci Atkins, 1.2.840.1 [id number] 133 [id number] Methodi 13:00:00 17:02:05 [address]inary [address]di [address]106.1.[address] Visit Nas 3.430.2.7 Hospit a .3.867007 l .8 2021-09-19 2021-09-19 Multidisci Atkins, 1.2.840.1 [id number] 721 2002613 Methodi 11:45:59 17:02:05 plinary Mehdi [address]404.1.[address] Visit Nas 3.430.2.7 Hospit a .3.007535 l .8 2021-09-19 2021-09-[address] [facility] [id number] 950 Thicket 00:00:00 00:00:00 MARIA DEL CARMEN [address] 2021-09-19 2021-09-19 Travel 1.2.840.1 1.2.486.729 4654 467561 Methodi 00:00:00 00:00:[address] 3.430.2.7 0.2.7.3.698 Ho spita .3.385479 084.8 l .8 2021-09-19 2021-09-19 Travel 1.2.840.1 1.2.024.707 4469 009727 Methodi 00:00:00 00:00:[address] 3.430.2.7 0.2.7.3.698 Ho spita .3.633043 084.8 l .8 2021-09-02 2021-09-02 [facility], 1.2.840.1 [id number] 97065 Methodi 06:47:59 23:59:00 Encounter Mehdi 45264.1.[address] Nas 3.430.2.7 Hospit a .3.430525 l .8 2021-09-02 2021-09-02 [facility], 1.2.840.1 [id number] 67045 Methodi 06:47:59 23:59:00 Encounter Mehdi 12696.1.[address] Nas 3.430.2.7 Hospit a .3.219207 l .8 2021-09-02 2021-09-02 Office Hernandez, 1.2.840.1 [id number] 203394 6640 Methodi 10:50:00 10:50:00 Visit Apoor 28751.1.[address] 3.430.2.7 Hospit a .3.229791 l .8 2021-09-02 2021-09-02 Office Hernandez, 1.2.840.1 [id number] 694429 1917 Methodi 09:50:06 10:29:57 Visit Apoor 91404.1.[address] 3.430.2.7 Hospit a .3.697511 l .8 2021-09-02 2021-09-02 Travel 1.2.840.1 1.2.107.782 5900 243918 Methodi 00:00:00 00:00:[address] 3.430.2.7 0.2.7.3.698 Ho spita .3.839559 084.8 l .8 2021-09-02 2021-09-02 Travel 1.2.840.1 1.2.307.698 9096 173093 Methodi 00:00:00 00:00:[address] 3.430.2.7 0.2.7.3.698 Ho spita .3.262665 084.8 l .8 2021-08-30 2021-08-30 Telephone Patterson, 1.2.840.1 [id number] Methodi 00:00:00 00:00:[address] 3.430.2.7 Hospit a .3.374784 l .8 2021-08-30 2021-08-30 Refill Damari, 1.2.840.1 [id number] 792361 1631 Methodi 00:00:00 00:00:00 Marilyn Sanchez 81025.1.1 566 s t 3.430.2.7 Hospit a .3.603972 l .8 2021-08-30 2021-08-30 Telephone Patterson, 1.2.840.1 [id number] Methodi 00:00:00 00:00:[address] 3.430.2.7 Hospit a .3.788926 l .8 2021-08-30 2021-08-30 Refvalery Wetzel, 1.2.840.1 [id number] 990692 6202 Methodi 00:00:00 00:00:00 Marilyn Sanchez 02348.1.1 566 s t 3.430.2.7 Hospit a .3.519572 l .8 2021-08-27 2021-08-27 Travel 1.2.840.1 1.2.305.031 1738 881473 Methodi 00:00:00 00:00:[address] 3.430.2.7 0.2.7.3.698 Ho spita .3.550392 084.8 l .8 2021-08-27 2021-08-27 Travel 1.2.840.1 1.2.267.907 9748 741336 Methodi 00:00:00 00:00:[address] 3.430.2.7 0.2.7.3.698 Ho spita .3.454384 084.8 l .8 2021-08-23 2021-08-23 Multidisci Atkins, 1.2.840.1 [id number] 609 0013729 Methodi 12:15:00 12:15:00 plinary Mehdi 01365.1.[address] Visit Nas 3.430.2.7 Hospit a .3.977030 l .8 2021-08-23 2021-08-23 Multidisci Ankita, 1.2.840.1 [id number] 580 2067306 Methodi 10:25:01 11:10:42 plinary Mehdi 20620.1.[address] Visit Nas 3.430.2.7 Hospit a .3.448376 l .8 2021-08-23 2021-08-[address] [facility] [id number] Thicket 00:00:00 00:00:00 MARIA DEL CARMEN [address] 2021-08-23 2021-08-23 [place] Ankita, 1.2.840.1 [id number] 2099160 Methodi 00:00:00 00:00:00 Mehdi [address]290.1.[address] Nas 3.430.2.7 Hospit a .3.530500 l .8 2021-08-23 2021-08-23 Shivam Velasquez, 1.2.840.1 098900003 2100 907638 Methodi 00:00:00 00:00:00 Only Yamila 44912.1.[address] 3.430.2.7 Hospit a .3.366840 l .8 2021-08-23 2021-08-23 Travel 1.2.840.1 1.2.805.390 4915 428958 Methodi 00:00:00 00:00:[address] 3.430.2.7 0.2.7.3.698 Ho spita .3.990213 084.8 l .8 2021-08-23 2021-08-23 Telephone Atkins, 1.2.840.1 [id number] 2099 909031 Methodi 00:00:00 00:00:[address] Nas 3.430.2.7 Hospit a .3.749868 l .8 2021-08-23 2021-08-23 Orders Velasquez, 1.2.840.1 [id number] 2099 251103 Methodi 00:00:00 00:00:00 Only Yamila 51840.1.[address] 3.430.2.7 Hospit a .3.455385 l .8 2021-08-23 2021-08-23 Travel 1.2.840.1 1.2.633.637 5627 657450 Methodi 00:00:00 00:00:[address] 3.430.2.7 0.2.7.3.698 Ho spita .3.591945 084.8 l .8 2021-08-12 2021-08-12 Telephone Magdaleno, 1.2.840.1 [id number] 188 9825198 Methodi 00:00:00 00:00:[address] 3.430.2.7 Hospit a .3.494232 l .8 2021-08-12 2021-08-12 Telephone Magdalenol, 1.2.840.1 [id number] [address]657935 Methodi 00:00:00 00:00:[address] 3.430.2.7 Hospit a .3.405903 l .8 2021-08-09 2021-08-09 Telephone Gaona, 1.2.840.1 [id number] 160 2335342 Methodi 00:00:00 00:00:00 Crysoumya 09300.1.1 454 s t 3.430.2.7 Hospit a .3.995375 l .8 2021-08-09 2021-08-09 Telephone Manasa, 1.2.840.1 [id number] 503 0835974 Methodi 00:00:00 00:00:[address] 3.430.2.7 Hospit a .3.336122 l .8 2021-08-09 2021-08-09 Travel 1.2.840.1 1.2.134.354 6871 077318 Methodi 00:00:00 00:00:[address] 3.430.2.7 0.2.7.3.698 Ho spita .3.747254 084.8 l .8 2021-08-09 2021-08-09 Patient Brendan, 1.2.840.1 Methodi 00:00:00 00:00:00 Outreach Liliana 48698.1.[address] 3.430.2.7 Hospit a .3.615962 l .8 2021-08-09 2021-08-09 Telephone Jimenez, 1.2.840.1 [id number] 932 5736634 Methodi 00:00:00 00:00:00 Crysandria 32432.1.1 454 s t 3.430.2.7 Hospit a .3.566159 l .8 2021-08-09 2021-08-09 Telephone Manasa, 1.2.840.1 [id number] 429 8412984 Methodi 00:00:00 00:00:[address] 3.430.2.7 Hospit a .3.945790 l .8 2021-08-09 2021-08-09 Travel 1.2.840.1 1.2.661.558 5860 382958 Methodi 00:00:00 00:00:[address] 3.430.2.7 0.2.7.3.698 Ho spita .3.977794 084.8 l .8 2021-08-09 2021-08-09 Patient Brendan, 1.2.840.1 Methodi 00:00:00 00:00:00 Outreach Liliana 07337.1.[address] 3.430.2.7 Hospit a .3.529495 l .8 2021-08-08 2021-08-08 Patient Brendan, 1.2.840.1 [id number] Methodi 00:00:00 00:00:00 Outreach Liliana 63804.1.[address] 3.430.2.7 Hospit a .3.496339 l .8 2021-08-08 2021-08-08 Patient Brendan, 1.2.840.1 Methodi 00:00:00 00:00:00 Outreach Liliana [address]238.1.[address] 3.430.2.7 Hospit a .3.986951 l .8 2021-08-06 2021-08-06 Travel 1.2.840.1 1.2.890.208 3749 794208 Methodi 00:00:00 00:00:[address] 3.430.2.7 0.2.7.3.698 Ho spita .3.903999 084.8 l .8 2021-08-06 2021-08-06 Travel 1.2.840.1 1.2.264.237 0656 327441 Methodi 00:00:00 00:00:[address] 3.430.2.7 0.2.7.3.698 Ho spita .3.994138 084.8 l .8 2021-08-05 2021-08-05 Telephone Atkins, 1.2.840.1 [id number] 2099904 Methodi 00:00:00 00:00:[address] Nas 3.430.2.7 Hospit a .3.486777 l .8 2021-08-05 2021-08-05 Telephone Atkins, 1.2.840.1 [id number] 2099904 Methodi 00:00:00 00:00:[address] Nas 3.430.2.7 Hospit a .3.946587 l .8 2021-08-02 2021-08-02 Telephone Hernandez, 1.2.840.1 [id number] 2099 172685 Methodi 00:00:00 00:00:[address] 3.430.2.7 Hospit a .3.132922 l .8 2021-08-02 2021-08-02 Travel 1.2.840.1 1.2.770.506 2951 478740 Methodi 00:00:00 00:00:[address] 3.430.2.7 0.2.7.3.698 Ho spita .3.118870 084.8 l .8 2021-08-02 2021-08-02 Telephone Hernandez, 1.2.840.1 [id number] 2099 005029 Methodi 00:00:00 00:00:[address] 3.430.2.7 Hospit a .3.950714 l .8 2021-08-02 2021-08-02 Travel 1.2.840.1 1.2.957.265 6442 682912 Methodi 00:00:00 00:00:[address] 3.430.2.7 0.2.7.3.698 Ho spita .3.838485 084.8 l .8 2021-07-30 2021-08-01 [facility], 1.2.840.1 [id number] 82515 Methodi 05:43:00 11:31:00 Encounter Mehdi 78129.1.[address] Nas 3.430.2.7 Hospit a .3.904706 l .8 2021-07-30 2021-08-01 [facility], 1.2.840.1 [id number] 43800 Methodi 05:43:00 11:31:00 Encounter Mehdi 16790.1.[address] Nas 3.430.2.7 Hospit a .3.727009 l .8 2021-08-01 2021-08-01 Telephone Leonardo, 1.2.840.1 [id number] Methodi 00:00:00 00:00:[address] 3.430.2.7 Hospit a .3.261125 l .8 2021-08-01 2021-08-01 Telephone Leonardo, 1.2.840.1 [id number] 16843050 Methodi 00:00:00 00:00:[address] 3.430.2.7 Hospit a .3.621144 l .8 2021-07-30 2021-07-30 [facility], 1.2.840.1 [id number] 840156 7087 Methodi 07:30:00 10:35:[address] Nas 3.430.2.7 Hospit a .3.359704 l .8 2021-07-30 2021-07-30 Surgery [facility], 1.2.840.1 033443546 806393 0417 Methodi 07:30:00 10:35:[address] Nas 3.430.2.7 Hospit a .3.964643 l .8 2021-07-30 2021-07-30 Anesthesia Wojciechows 1.2.840.1 [id number] [id number] Methodi 07:30:00 10:21:00 Event jonathan, 99336.1.[address] Galindo J. 3.430.2.7 Ho spita .3.222775 l .8 2021-07-30 2021-07-30 Anesthesia Wojciechows 1.2.840.1 066401537 0094374506 Methodi 07:30:00 10:21:00 Event jonathan, 12088.1.[address] Galindo J. 3.430.2.7 Ho spita .3.656978 l .8 2021-07-29 2021-07-29 [facility], 1.2.840.1 [id number] 25 Methodi 12:04:56 23:59:00 Encounter Mehdi 92058.1.[address] Nas 3.430.2.7 Hospit a .3.919230 l .8 2021-07-29 2021-07-29 [facility], 1.2.840.1 [id number] 25 Methodi 12:04:56 23:59:00 Encounter Mehdi 55905.1.[address] Nas 3.430.2.7 Hospit a .3.104469 l .8 2021-07-29 2021-07-29 Pre-Admiss Randolph, 1.2.840.1 [id number] 644 3064857 Methodi 10:30:00 11:30:00 ion Mehdi 13211.1.[address] Testing Nas 3.430.2.7 Hospit a .3.602999 l .8 2021-07-29 2021-07-29 [facility] 1.2.840.1 [id number] 849 9068100 Methodi 10:11:13 11:11:13 ion Mehdi 52871.1.[address] Testing Nas 3.430.2.7 Hospit a .3.765210 l .8 2021-07-28 2021-07-28 Refill Manasa, 1.2.840.1 [id number] 61 Methodi 00:00:00 00:00:[address] 3.430.2.7 Hospit a .3.521895 l .8 2021-07-28 2021-07-28 Refill Magdalenol, 1.2.840.1 154445837 61 Methodi 00:00:00 00:00:[address] 3.430.2.7 Hospit a .3.714016 l .8 2021-07-24 2021-07-24 Shivam Recinos, 1.2.840.1 [id number] 807726 2969 Methodi 00:00:00 00:00:00 Only Yamila 06656.1.[address] 3.430.2.7 Hospit a .3.526863 l .8 2021-07-24 2021-07-24 Telephone Magdalenomike, 1.2.840.1 [id number] 440 0346789 Methodi 00:00:00 00:00:[address] 3.430.2.7 Hospit a .3.948767 l .8 2021-07-24 2021-07-24 Orders Jorje, 1.2.840.1 [id number] 602912 0017 Methodi 00:00:00 00:00:00 Only Yamila 92998.1.[address] 3.430.2.7 Hospit a .3.277336 l .8 2021-07-24 2021-07-24 Telephone Magdalenomike, 1.2.840.1 [id number] 373 7422600 Methodi 00:00:00 00:00:[address] 3.430.2.7 Hospit a .3.907975 l .8 2021-07-22 2021-07-22 Telephone Leonardo 1.2.840.1 698495109 31880633 Methodi 00:00:00 00:00:[address] 3.430.2.7 Hospit a .3.770068 l .8 2021-07-22 2021-07-22 Documentat Provider, 1.2.840.1 [id number] 2 [id number] Methodi 00:00:00 00:00:00 ion Unknown 97106.1.[address] 3.430.2.7 Hospit a .3.799161 l .8 2021-07-22 2021-07-22 Prep for Leonardo, 1.2.840.1 [id number] 325 7918028 Methodi 00:00:00 00:00:00 Surgery Brittney [address]145.1.[address] 3.430.2.7 Hospit a .3.271799 l .8 2021-07-22 2021-07-22 Telephone Leonardo 1.2.840.1 [id number] 29956410 Methodi 00:00:00 00:00:[address] 3.430.2.7 Hospit a .3.596425 l .8 2021-07-22 2021-07-22 Documentat Provider, 1.2.840.1 [id number] 2 [id number] Methodi 00:00:00 00:00:[address] ion Alex [address]15.1.[address] 3.430.2.7 Hospit a .3.454595 l .8 2021-07-22 2021-07-22 Prep for [place], 1.2.840.1 355861112 473 8069124 Methodi 00:00:00 00:00:00 Surgery Brittney 47713.1.[address] 3.430.2.7 Hospit a .3.328145 l .8 2021-07-17 2021-07-17 [facility], 1.2.840.1 [id number] 79896 66339 Methodi 08:05:00 18:36:00 Encounter Chew Laura 67482.1.[address] 3.430.2.7 Hospit a .3.192577 l .8 2021-07-17 2021-07-17 [facility], 1.2.840.1 [id number] 49428 Methodi 08:05:00 18:36:00 Encounter Chew Laura 44133.1.[address] 3.430.2.7 Hospit a .3.214362 l .8 2021-07-17 2021-07-17 [facility], 1.2.840.1 [id number] 436969 8898 Methodi 14:00:00 15:00:00 Marilyn Sanchez 24529.1.1 823 s t 3.430.2.7 Hospit a .3.909446 l .8 2021-07-17 2021-07-17 [facility], 1.2.840.1 [id number] 649381 3730 Methodi 14:00:00 15:00:00 Marilyn Sanchez 83514.1.1 823 s t 3.430.2.7 Hospit a .3.326928 l .8 2021-07-17 2021-07-17 Travel 1.2.840.1 1.2.017.034 6564 697727 Methodi 00:00:00 00:00:[address] 3.430.2.7 0.2.7.3.698 Ho spita .3.708807 084.8 l .8 2021-07-17 2021-07-17 Travel 1.2.840.1 1.2.036.139 1009 073751 Methodi 00:00:00 00:00:[address] 3.430.2.7 0.2.7.3.698 Ho spita .3.465216 084.8 l .8 2021-07-15 2021-07-15 Pre-Admiss Wetzel, 1.2.840.1 486673214 504 4644415 Methodi 08:30:00 09:00:00 marcio Sanchez 95269.1.1 418 s t Testing 3.430.2.7 Hospit a .3.642307 l .8 2021-07-15 2021-07-15 Pre-Admiss Wetzel, 1.2.840.1 764865715 718 7929240 Methodi 07:47:02 08:17:02 marcio Sanchez 11692.1.1 418 s t Testing 3.430.2.7 Hospit a .3.202448 l .8 2021-07-11 2021-07-11 Travel 1.2.840.1 1.2.004.358 6306 175904 Methodi 00:00:00 00:00:[address] 3.430.2.7 0.2.7.3.698 Ho spita .3.696230 084.8 l .8 2021-07-11 2021-07-11 Telephone Pitz, 1.2.840.1 [id number] 2099 568363 Methodi 00:00:00 00:00:[address] 3.430.2.7 Hospit a .3.528584 l .8 2021-07-05 2021-07-05 Telephone Ankita, 1.2.840.1 396129243 2100 507616 Methodi 14:55:11 14:55:21 Consult Mehdi 86860.1.[address] Nas 3.430.2.7 Hospit a .3.968251 l .8 2021-07-05 2021-07-05 Telephone Ayesha, 1.2.840.1 [id number] 59872608 Methodi 00:00:00 00:00:[address] 3.430.2.7 Hospit a .3.165819 l .8 2021-07-04 2021-07-04 Office Manasa, 1.2.840.1 117077547 79894 46763 Methodi 12:00:22 13:23:11 Visit Fredrick 58871.1.[address] 3.430.2.7 Hospit a .3.743645 l .8 2021-07-03 2021-07-03 [facility], 1.2.840.1 [id number] 05965 92351 Methodi 10:25:02 23:59:00 Encounter Mehdi 19259.1.[address] Nas 3.430.2.7 Hospit a .3.953319 l .8 2021-07-03 2021-07-03 Prep for Damari, 1.2.840.1 [id number] 13157 32005 Methodi 00:00:00 00:00:00 Surgery Marilyn Sanchez 71960.1.1 748 s t 3.430.2.7 Hospit a .3.255937 l .8 2021-07-03 2021-07-03 Orders Damari, 1.2.840.1 [id number] 618402 7212 Methodi 00:00:00 00:00:00 Only Marilyn Sanchez 16771.1.1 741 s t 3.430.2.7 Hospit a .3.235113 l .8 2021-07-03 2021-07-03 Telephone Simone 1.2.840.1 [id number] 9374619689 Methodi 00:00:00 00:00:[address]26.1.[address] 3.430.2.7 Hospit a .3.489232 l .8 2021-07-03 2021-07-03 Travel 1.2.840.1 1.2.308.077 9991 260171 Methodi 00:00:00 00:00:[address] 3.430.2.7 0.2.7.3.698 Ho spita .3.754088 084.8 l .8 2021-07-01 2021-07-01 Travel 1.2.840.1 1.2.635.637 7971 883540 Methodi 00:00:00 00:00:[address] 3.430.2.7 0.2.7.3.698 Ho spita .3.405901 084.8 l .8 2021-07-01 2021-07-01 Long Patterson, 1.2.840.1 019355875 77153255 Methodi 00:00:00 00:00:[address] 3.430.2.7 Hospit a .3.825332 l .8 2021-07-01 2021-07-01 Orders Leonardo, 1.2.840.1 761027173 2099391 Methodi 00:00:00 00:00:00 Only Brittney 50245.1.[address] 3.430.2.7 Hospit a .3.859530 l .8 2021-06-28 2021-06-28 Multidisci Ankita, 1.2.840.1 398038260 076 9870583 Methodi 11:47:45 13:21:49 plinary Mehdi 88640.1.[address] Visit Nas 3.430.2.7 Hospit a .3.037772 l .8 2021-06-28 2021-06-28 Multidisci Ajit, 1.2.840.1 [id number] 973 0395885 Methodi 11:46:33 13:21:41 plinary Maria Del Carmen 05941.1.[address] Visit Hosung 3.430.2.7 Hospit a .3.090678 l .8 2021-06-28 2021-06-28 Travel 1.2.840.1 1.2.464.198 9373 074110 Methodi 00:00:00 00:00:[address] 3.430.2.7 0.2.7.3.698 Ho spita .3.515689 084.8 l .8 2021-06-24 2021-06-24 Office Wetzel, 1.2.840.1 [id number] 960988 8550 Methodi 11:11:34 12:16:31 Visit Marilyn Sanchez 24533.1.1 543 s t 3.430.2.7 Hospit a .3.001937 l .8 2021-06-24 2021-06-24 Telephone Patterson, 1.2.840.1 [id number] 21 17402522 Methodi 00:00:00 00:00:[address] 3.430.2.7 Hospit a .3.460883 l .8 2021-06-24 2021-06-24 Travel 1.2.840.1 1.2.495.378 7310 652383 Methodi 00:00:00 00:00:[address] 3.430.2.7 0.2.7.3.698 Ho spita .3.238326 084.8 l .8 2021-06-14 2021-06-14 Refill Damari, 1.2.840.1 145195171 944807 7510 Methodi 00:00:00 00:00:00 Marilyn Sanchez 94485.1.1 743 s t 3.430.2.7 Hospit a .3.571154 l .8 2021-06-13 2021-06-13 Refill Arsalanloreta, 1.2.840.1 [id number] 32325 Methodi 00:00:00 00:00:[address] 3.430.2.7 Hospit a .3.231429 l .8 2021-06-10 2021-06-10 Travel 1.2.840.1 1.2.252.342 8618 599546 Methodi 00:00:00 00:00:[address] 3.430.2.7 0.2.7.3.698 Ho spita .3.302562 084.8 l .8 2021-06-10 2021-06-10 Outpatient [facility] [id number] 644 Thicket 00:00:00 00:00:00 MARILYN Inman Method i st 2021-05-31 2021-05-31 Telephone [facility], 1.2.840.1 [id number] 315 2235995 Methodi 00:00:00 00:00:[address] 3.430.2.7 Hospit a .3.452516 l .8 2021-05-24 2021-05-24 Orders Provider, 1.2.840.1 [id number] 2099 494715 Methodi 00:00:00 00:00:00 Only Historical 97995.1.1 785 s t 3.430.2.7 Hospit a .3.359153 l .8 2021-05-16 2021-05-16 Refill [facility], 1.2.840.1 [id number] 93387 Methodi 00:00:00 00:00:[address] 3.430.2.7 Hospit a .3.372166 l .8 2021-05-15 2021-05-15 Refill [facility], 1.2.840.1 752491059 170 Methodi 00:00:00 00:00:[address] 3.430.2.7 Hospit a .3.133299 l .8 2021-05-02 2021-05-02 [facility] [id number] 37978 Methodi 00:00:00 00:00:[address] 3.430.2.7 Hospit a .3.499791 l .8 2021-05-02 2021-05-02 Refill [place], 1.2.840.1 888897503 07195 Methodi 00:00:00 00:00:[address] 3.430.2.7 Hospit a .3.385478 l .8 2021-04-16 2021-04-16 Refill [place], 1.2.840.1 440794143 42319 Methodi 00:00:00 00:00:[address] 3.430.2.7 Hospit a .3.992013 l .8 2021-04-15 2021-04-15 Telephone Tod, 1.2.840.1 703360718 522 4586771 Methodi 00:00:00 00:00:[address] 3.430.2.7 Hospit a .3.621754 l .8 2021-04-15 2021-04-15 Telephone Manasa, 1.2.840.1 142102762 623 8509073 Methodi 00:00:00 00:00:[address] 3.430.2.7 Hospit a .3.988607 l .8 2021-04-14 2021-04-14 Refill [place], 1.2.840.1 689946625 97766 Methodi 00:00:00 00:00:[address] 3.430.2.7 Hospit a .3.954305 l .8 2021-04-12 2021-04-12 Refill [place], 1.2.840.1 573167280 46512 Methodi 00:00:00 00:00:[address] 3.430.2.7 Hospit a .3.922804 l .8 2021-03-28 2021-03-28 Refill [place], 1.2.840.1 658204141 24138 Methodi 00:00:00 00:00:[address] 3.430.2.7 Hospit a .3.443391 l .8 2021-03-12 2021-03-12 Refill Manasa, 1.2.840.1 273802517 79844 Methodi 00:00:00 00:00:[address] 3.430.2.7 Hospit a .3.482427 l .8 2021-02-11 2021-02-11 Travel 1.2.840.1 1.2.504.574 4293 414662 Methodi 00:00:00 00:00:[address] 3.430.2.7 0.2.7.3.698 Ho spita .3.713991 084.8 l .8 2021-02-11 2021-02-11 Telephone Manasa, 1.2.840.1 [id number] 520 2667174 Methodi 00:00:00 00:00:[address] 3.430.2.7 Hospit a .3.365068 l .8 2021-02-05 2021-02-05 Refill Manasa, 1.2.840.1 073984583 46143 Methodi 00:00:00 00:00:[address] 3.430.2.7 Hospit a .3.166838 l .8 2021-02-04 2021-02-04 Refill Ysabel, 1.2.840.1 694056345 03968 Methodi 00:00:00 00:00:[address] 3.430.2.7 Hospit a .3.037004 l .8 2021-02-03 2021-02-03 Refill Manasa, 1.2.840.1 [id number] 26583 Methodi 00:00:00 00:00:[address] 3.430.2.7 Hospit a .3.294679 l .8 2021-02-02 2021-02-02 Refill [facility] 1.2.840.1 [id number] 17593268 Methodi 00:00:00 00:00:00 mireya, [place] 44440.1.[address] 3.430.2.7 Hospit a .3.690579 l .8 2021-01-03 2021-01-03 Telephone [facility] 1.2.840.1 [id number] Methodi 00:00:00 00:00:00 a, Val 82122.1.[address] 3.430.2.7 Hospit a .3.537343 l .8 2021-01-03 2021-01-03 Telephone Ollie, 1.2.840.1 137112853 2100 890197 Methodi 00:00:00 00:00:[address] 3.430.2.7 Hospit a .3.126379 l .8 2021-01-03 2021-01-03 Refill [facility] 1.2.840.1 [id number] 93683619 Methodi 00:00:00 00:00:00 mireya, Val 04442.1.[address] 3.430.2.7 Hospit a .3.291466 l .8 2020-12-24 2020-12-24 Clinical Javier, 1.2.840.1 [id number] 22038 64356 Methodi 11:55:43 12:00:31 Support Torsten 68920.1.[address] P. 3.430.2.7 Hospit a .3.977528 l .8 2020-12-24 2020-12-24 Office Damari, 1.2.840.1 535110218 676125 8241 Methodi 10:20:58 11:32:44 Visit Marilyn Sanchez 98123.1.1 575 s t 3.430.2.7 Hospit a .3.247440 l .8 2020-12-24 2020-12-24 Travel 1.2.840.1 1.2.009.980 7649 578557 Methodi 00:00:00 00:00:[address] 3.430.2.7 0.2.7.3.698 Ho spita .3.603287 084.8 l .8 2020-12-06 2020-12-06 Clinical 1.2.840.1 [id number] 25362 Methodi 11:11:48 11:24:[address] 3.430.2.7 Hospit a .3.603189 l .8 2020-12-06 2020-12-06 Travel 1.2.840.1 1.2.724.949 1467 082446 Methodi 00:00:00 00:00:[address] 3.430.2.7 0.2.7.3.698 Ho spita .3.191139 084.8 l .8 2020-11-28 2020-11-28 Office [facility], 1.2.840.1 [id number] 46974 Methodi 09:23:15 09:51:08 Visit Fredrick 81245.1.[address] 3.430.2.7 Hospit a .3.943943 l .8 2020-11-28 2020-11-28 Travel 1.2.840.1 1.2.945.147 7185 [id number] Methodi 00:00:00 00:00:[address] 3.430.2.7 0.2.7.3.698 Ho spita .3.501106 084.8 l .8 2020-11-22 2020-11-22 Refill [facility], 1.2.840.1 [id number] 72918 73317 Methodi 00:00:00 00:00:[address] 3.430.2.7 Hospit a .3.852342 l .8 2020-11-21 2020-11-21 Travel 1.2.840.1 1.2.587.432 4051 089746 Methodi 00:00:00 00:00:[address] 3.430.2.7 0.2.7.3.698 Ho spita .3.394223 084.8 l .8 2020-11-21 2020-11-21 [facility] [id number] Thicket 00:00:00 00:00:00 FREDRICK [address] 2020-11-20 2020-11-20 [facility] 1.2.840.1 [id number] 21 [id number] Methodi 14:05:24 16:02:59 ne Fredrick 26711.1.[address] 3.430.2.7 Hospit a .3.453578 l .8 2020-11-19 2020-11-19 [facility], 1.2.840.1 [id number] 830 [id number] Methodi 00:00:00 00:00:[address] 3.430.2.7 Hospit a .3.925729 l .8 2020-11-19 2020-11-19 Travel 1.2.840.1 1.2.893.729 5474 468707 Methodi 00:00:00 00:00:[address] 3.430.2.7 0.2.7.3.698 Ho spita .3.445328 084.8 l .8 2020-11-17 2020-11-17 Refill Wetzel, 1.2.840.1 [id number] 402127 4873 Methodi 00:00:00 00:00:00 Marilyn Sanchez 99053.1.1 [address] 3.430.2.7 Hospit a .3.675108 l .8 2020-11-12 2020-11-12 Travel 1.2.840.1 1.2.652.677 6155 361083 Methodi 00:00:00 00:00:[address] 3.430.2.7 0.2.7.3.698 Ho spita .3.185833 084.8 l .8 2020-11-06 2020-11-06 Refill Manasa, 1.2.840.1 [id number] 14793 75356 Methodi 00:00:00 00:00:[address] 3.430.2.7 Hospit a .3.863977 l .8 2020-11-05 2020-11-05 Refill Manasa, 1.2.840.1 [id number] 25837 88123 Methodi 00:00:00 00:00:[address] 3.430.2.7 Hospit a .3.457889 l .8 2020-10-26 2020-10-26 Refill Manasa, 1.2.840.1 [id number] 34082 10866 Methodi 00:00:00 00:00:[address] 3.430.2.7 Hospit a .3.555243 l .8 2020-10-24 2020-10-24 Telemedici Manasa, 1.2.840.1 [id number] 21 [id number] Methodi 14:15:14 16:04:21 ne [address]rick [address]327.1.[address] 3.430.2.7 Hospit a .3.128238 l .8 2020-10-24 2020-10-24 Telephone Magdaleno, 1.2.840.1 [id number] 887 [id number] Methodi 00:00:00 00:00:[address] 3.430.2.7 Hospit a .3.071873 l .8 2020-08-28 2020-08-28 Outpatient [facility] [id number] Thicket 00:00:00 00:00:00 FREDRICK [address] 2020-07-30 2020-07-30 Outpatient [facility] [id number] Thicket 00:00:00 00:00:00 FREDRICK [address] 2020-07-17 2020-07-17 Outpatient MANASA [facility] [id number] Thicket 00:00:00 00:00:00 FREDRICK [address] 2020-07-04 2020-07-04 Outpatient [facility] [id number] Thicket 00:00:00 00:00:00 SHRUTI [address] 2020-07-04 2020-07-04 Outpatient [facility] [id number] Thicket 00:00:00 00:00:00 SHRUTI [address] 2020-06-25 2020-06-25 Outpatient [facility] [id number] Thicket 00:00:00 00:00:00 SHRUTI [address] 2020-06-25 2020-06-25 Outpatient [facility] [id number] Thicket 00:00:00 00:00:00 SHRUTI [address] 2020-06-21 2020-06-21 Outpatient DAMARI, [facility] [id number] 719 Thicket 00:00:00 00:00:00 MARILYN [address] 2020-06-14 2020-06-14 Outpatient MANASA [facility] [id number] Thicket 00:00:00 00:00:00 FREDRICK [address] 2020-06-14 2020-06-14 Outpatient MANASA [facility] [id number] Thicket 00:00:00 00:00:00 FREDRICK [address] 2020-05-23 2020-05-23 Outpatient DAMARI, [place] [id number] Thicket 00:00:00 00:00:00 MARILYN [address] 2020-05-21 2020-05-21 Outpatient WETZEL, [facility] [id number] 091 Thicket 00:00:00 00:00:00 MARILYN [address] 2020-05-15 2020-05-15 Outpatient [facility] [id number] Thicket 00:00:00 00:00:[address] 2020-05-15 2020-05-15 Outpatient [facility] [id number] Thicket 00:00:00 00:00:[address] 2020-05-10 2020-05-10 Outpatient DAMARI, [facility] [id number] 306 Thicket 00:00:00 00:00:00 MARILYN Delacruz7 [facility] 2020-05-10 2020-05-10 Outpatient WETZEL, [facility] [id number] 306 Thicket 00:00:00 00:00:00 MARILYN Delacruz8 [facility] 2020-05-10 2020-05-10 Outpatient WETZEL, [facility] [id number] 306 Thicket 00:00:00 00:00:00 MARILYN [address] 2020-05-10 2020-05-10 Outpatient WETZEL, [facility] [id number] 306 Thicket 00:00:00 00:00:00 MARILYN [address] 2020-05-10 2020-05-10 Outpatient WETZEL, [facility] [id number] 306 Thicket 00:00:00 00:00:00 MARILYN Lira2 [facility] 2020-05-10 2020-05-10 Outpatient WETZEL, [facility] [id number] 306 Thicket 00:00:00 00:00:00 MARILYN Lira[address] [facility] 2020-05-03 2020-05-03 Outpatient OOLUT, [facility] [id number] Thicket 00:00:00 00:00:00 JANES [address] 2020-04-30 2020-04-30 Outpatient DUNN, [facility] [id number] Thicket 00:00:00 00:00:00 JUSTUS [address] 2020-04-25 2020-04-25 Outpatient OOLUT, [facility] [id number] Thicket 00:00:00 00:00:00 JANES [address] 2020-04-16 2020-04-16 Outpatient WETZEL, [facility] [id number] Thicket 00:00:00 00:00:00 MARILYN Bartlett Method i 2020-04-06 2020-04-06 [facility] 1.2.726.657 8183 9079 [facility] 00:00:00 00:00:00 [employer] 350.1.13.10 it y of [place] 4.2.7.2.686 Jason as Arely [id number] [address] 2020-04-06 2020-04-06 [facility] 1.2.438.055 1341 9079 00:00:00 00:00:00 [facility] 350.1.13.10 Bailey 4.2.7.2.686 Professio [phone] nal [facility] Office [address] 2020-04-05 2020-04-05 Urgent Pob1, Acute Care Clinic [facility] 1. 2.840.114 [id number] [facility] 12:38:42 13:41:55 [facility] [facility] [id number] ity of [place] [id number] Jason as Professio [phone] Me dical [place] [address] [address] One 2020-04-05 2020-04-05 Urgent Pob1, Acute [facility] [id number] 12:38:42 13:41:55 [facility] [id number] [place] [id number] Professio [phone] [place] [address] [address] 2020-04-05 2020-04-05 Outpatient R ARVINDiana, [facility] [id number] Univers 13:00:00 13:00:00 [facility] 2020-04-05 2020-04-05 Emergency HERNANDEZ, [facility] 064 [id number] Thicket 00:00:00 00:00:00 BRANNON 293 Method i 2020-03-21 2020-03-21 Outpatient [facility], [facility] [id number] Thicket 00:00:00 00:00:00 FREDRICK 870 Method i 2020-03-19 2020-03-19 Outpatient [facility], [facility] [id number] Thicket 00:00:00 00:00:00 FREDRICK 589 Method i 2020-03-01 2020-03-01 Outpatient [facility], [facility] [id number] Thicket 00:00:00 00:00:00 FREDRICK 882 Method i 2020-01-19 2020-01-19 Outpatient [facility], [facility] [id number] Thicket 00:00:00 00:00:00 ASAEL 049 Method i 2019-12-29 2019-12-29 Outpatient [facility], [facility] [id number] Thicket 00:00:00 00:00:00 ASAEL 459 Method i 2019-12-29 2019-12-29 Outpatient [facility] [id number] Thicket 00:00:00 00:00:00 ASAEL [address] 2019-11-29 2019-11-29 Outpatient SOURAV DAPHNEY [facility] [id number] Thicket 00:00:00 00:00:[address] 2019-11-22 2019-11-22 Outpatient GUSTAVO, [facility] [id number] Thicket 00:00:00 00:00:00 NURIS [address] 2019-11-22 2019-11-22 Outpatient DAPHNEY BENJAMIN [facility] [id number] Thicket 00:00:00 00:00:[address] 2019-11-16 2019-11-16 Outpatient MANASA, [facility] [id number] Thicket 00:00:00 00:00:00 FREDRICK [address] 2019-05-25 2019-05-25 Outpatient KLAUDIA, [facility] [id number] Thicket 00:00:00 00:00:00 MARIA DEL CARMEN [address] 2019-05-25 2019-05-25 Outpatient KLAUDIA, [facility] [id number] Thicket 00:00:00 00:00:00 MARIA DEL CARMEN [address] 2018-12-16 2018-12-16 Outpatient KLAUDIA, [facility] [id number] Thicket 00:00:00 00:00:00 MARIA DEL CARMEN [address] Results Test Description Test Time Test Comments Results Result Comments Source ECG 12 lead 2022-06-01 01:10:40 Test Item Value Reference Range Interpretation Comme nts Ventricular rate (test code = 253) Atrial rate (test code = 255) MO interval (test code = 266) QRSD interval (test code = 260) QT interval (test code = 264) QTC interval (test code = 265) P axis 1 (test code = 267) QRS axis 1 (test code = 268) T wave axis (test code = 270) EKG impression (test code = 273) Sinus rhythm- [facility] glycosylated hemoglobin (Hb A1C)2022-03-26 17:07:00 Test Item Value Reference Range Interpretation Comments POC Hemoglobin A1C (test code = 7.4 % 9952485) [facility] urine [id number] 23:08:00 Test Item Value Reference Range Interpretation Comments Creatinine, 61.2 mg/dL Not Estab. urine (mg/dL) (test code = 2161-8) Albumin, urine 3.4 ug/mL Not Estab. (test code = 79033-0) Microalbumin/cr See_Comment Normal: 0 - 29 eatinine ratio Moderately (test code = increased: 30 - 300 9318-7) Severely increa sed: >300 [Automated message] The sy stem which generated this result transmit criss reference range : 0 - 29 mg/g creat. The reference range was not used to interpret this result as normal/abnormal . [facility] (test code Performed at: - = [facility]) [facility] [id number] Director: Nuris Cordova MD, Phone: [phone] [facility] Hospital[facility] [id number] 13:10:00 Test Item Value Reference Range Interpretation Comments Cholesterol (test 118 mg/dL 100-199 code = 2093-3) Triglycerides (test 84 mg/dL 0-149 code = 2571-8) HDL cholesterol (test 31 mg/dL See_Comment L [Auto mated code = 2085-9) message] The system which generated this result transmitted reference range : >=39. The reference range was not used to interpret this result as normal/abnormal . VLDL cholesterol claudine 17 mg/dL 5-40 (test code = 37692-6) LDL Chol Calc ([facility]) 70 mg/dL 0-99 (test code = 08135-9) Non-HDL cholesterol 87 mg/dL 0-129 (test code = 12646-7) [facility] (test code = L[place]YD) Performed at: - [facility] [address] [id number] Director: Nuris Cordova MD, Phone: [phone] Lab Interpretation Abnormal (test code = 33875-9) [facility] specific [id number] 13:10:00 Test Item Value Reference Range Interpretation Comments PSA (test 1.1 ng/mL 0.0-4.0 Martina ECLIA code = methodology.Acc ording 2857-1) to the [employer], Serum PSA shoulddecrease and remain at undet ectable levels after radicalprostate ctomy. The AUA defines biochemical rec urrence as an initialPS A value 0.2 ng/mL or gr eater followed by a subsequent confirmatoryPSA value 0.2 ng/mL or greater.Values obtained with different assay methods or kits cannot be usedintercha ngeably. Results cannot be interpreted as absolute evidenceof the presence or absence of m alignant disease. [facility] (test Performed at: - code = [facility]) [facility] [address] [place], [place] [id number] Director: Nuris Cordova MD, Phone: [phone] [facility] HospitalHemoglobin & [id number] 05:06:00 Test Item Value Reference Range Interpretation Comments HGB (test code = 13.0 g/dL 13.0-17.7 718-7) HCT (test code = 41.5 % 37.5-51.0 4544-3) [place] (test code = Performed at: [facility]) [facility] [address] [place], [place] [id number] Director: Nuris Cordova MD, Phone: [phone] [facility] 12 [id number] 04:11:49 Test Item Value Reference Range Interpretation Comments Ventricular rate (test code = 253) Atrial rate (test code = 255) MO interval (test code = 266) QRSD interval (test code = 260) QT interval (test code = 264) QTC interval (test code = 265) P axis 1 (test code = 267) QRS axis 1 (test code = 268) T wave axis (test code = 270) EKG impression (test Sinus rhythm with code = 273) occasional premature ventricular complexes-Rightward axis-T wave abnormality, consider inferior ischemia-Electronicall y Signed By David POLO, Apoor ([id number]) on 09/10/2021 10:11:[address] [facility]chocardi[facility] Complete, (w Contrast, Strain and 3D if needed)2021-09-02 17:11:43 Test Item Value Reference Range Interpretation Comments Ao Root Diameter (test 3.10 cm code = 5074949450) AoV Area, Vmax (test 2.09 cm2 code = 9543332631) AoV Area, VTI (test 2.31 cm2 code = 7522983619) AoV Mean PG (test code mmHg = 4725743151) AoV Peak PG (test code mmHg = 9524041849) AoV Vmax (test code = 2.20 m/s 6513356351) AoV VTI (test code = 0.30 m 3660327258) IVS,d (test code = 1.39 cm 0660276417) IVS/LVPW,2D (test code = 0334109853) Left Atrium Dimension 4.41 cm Anterior (test code = 6145584596) LV,d (test code = 3.70 cm 0548975386) LV EF,2D (test code = 68.99 % 6129220263) LV,s (test code = 2.50 cm 4879638065) LVOT area (test code = 3.83 cm2 0901696426) LVOT Diam,S (test code 2.21 cm = 8328060782) LVOT Vmax (test code = 1.07 m/s 2920224355) LVOT VTI (test code = 0.22 m 6929848588) LVPWD,d (test code = 1.24 cm 5611390947) PV Pk Grad (test code mmHg = 1695662968) PV VMAX (test code = 1.21 m/s 1104109552) RVOT Vmax (test code = 0.76 m/s 7876745609) TR Vpeak (test code = 3.12 mm/s 7687484427) AR Press Half Time 389.00 ms (test code = 8939046888) MV E A ratio (test code = 6901662559) TR pk grad (test code mmHg = 6246679797) MR Vmax (test code = 4.83 m/s 4156838714) E wave decelartion msec time (test code = 6761770078) MV Peak A Dario (test 1.80 m/s code = 0987977688) MV valve area p 1/2 2.15 cm2 method (test code = 6070283264) MV Peak E Dario (test 1.62 m/s code = 7871519176) MV stenosis pressure 102.22 ms 1/2 time (test code = 7486715105) LVOT stroke volume 0.84 cm3 (test code = 4695198041) AV LVOT peak gradient mmHg (test code = 8354204652) Ascending aorta (test 3.02 cm code = 9202543049) Ao Root Diameter (test 3.10 cm code = 6371410207) MV mean gradient (test mmHg code = 8657448276) LV SYS VOL (test code 22.35 ml = 4642346022) LV BLANTON VOL (test code 57.96 ml = 3837922682) LA area s A4C (test 18.32 cm2 code = 6987166882) LV SV Teich 2D (test 35.61 ml code = 3786289664) LV Vol s Teich PSAX 22.35 ml (test code = 0958757129) MR peak grad (test mmHg code = 8028932923) MV Vmax (test code = 1.91 m 4152074160) MV VTI Tips (test code 0.51 m = 7942933246) RVOT pk grad (test mmHg code = 1015848903) AoV Vmn (test code = 6951509536) LV FS Teich 2D (test code = 8325022534) MV AE ratio (test code = 7088998587) AR slope (test code = 4330764612) Ar Vmax (test code = 1479243481) LV FS Cube 2D (test code = 3849933760) LVOT Vmn (test code = 3649139438) Aov area Vmn (test 2.17 cm2 code = 1249804505) LVOT mean grad (test mmHg code = 5009818634) MAX Pred HR (test code = 9117725142) 85 of MPHR (test code = 2605595237) AR DT (test code = msec 8479124963) AR pk grad (test code mmHg = 1254605476) Calc MPHR (test code = bpm 2893095164) LV SV Cube 2D (test 34.82 ml code = 5511338851) LV vol d cube 2D (test 50.47 ml code = 1628196116) LV vol s cube 2D (test 15.65 ml code = 6846948164) MV Decel slope (test 6.82 m/s2 code = 2026697969) Pred Exer Dur R1 (test code = 5803282428) Pred METS R1 (test code = 3657456276) LA Vol MOD A4C (test 45.83 ml code = 6449449624) Velocity Ratio (V1/V2) 0.49 m/s (test code = 4689) EF (test code = 61.44 % 2182021537) E/A ratio (test code = 0051646615) LVOT VTI (CM) (test 22.00 cm code = 0440126999) LLOYD (test code = LLOYD) Left Ventricular ejection fraction is 60 - 65% There is mild left ventricular concentric hypertrophy Grade I diastolic dysfunction, impaired relaxation with normal filling pressure. 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 DVI 0.65 (normal > 0.50). Mild PVL is seen The mitral valve appears calcified. Moderate mitral valve stenosis Mild mitral valve regurgitation Trace tricuspid valve regurgitation No significant pulmonary valve regurgitation Normal right ventricular size, wall thickness and global function. Left VentricleThe left ventricular chamber size is normal. Left ventricular systolic function is normal. Left Ventricular ejection fraction is 60 - 65%. There is mild left ventricular concentric hypertrophy. Normal left ventricular regional wall motion.Right VentricleNormal right ventricular size, wall thickness and global function.Left AtriumLA size is normal. The left atrium size by volume is mildly dilated. The inter-atrial septum is normal.Right AtriumThe right atrium is normal.Mitral ValveThe mitral valve appears calcified. Mild mitral valve regurgitation. Moderate mitral valve stenosis.Tricuspid ValveThe tricuspid valve appears normal. Trace tricuspid valve regurgitation.Aortic ValveThere is a TAVR bioprosthetic aortic valve present. DVI 0.65 (normal > 0.50). Mild PVL is seen.Pulmonic ValveNo significant pulmonary valve regurgitation.Pericardi umNo pericardial effusion seen.DiastologySpectral Doppler shows impaired relaxation pattern of LV diastolic filling. Grade I diastolic dysfunction, impaired relaxation with normal filling pressure.AortaAortic root is normal. [facility], (w Contrast, Strain and 3D if needed)2021-09-02 17:11:43 Test Item Value Reference Range Interpretation Comments Ao Root Diameter (test 3.10 cm code = 0693400174) AoV Area, Vmax (test 2.09 cm2 code = 6719998941) AoV Area, VTI (test 2.31 cm2 code = 8651210802) AoV Mean PG (test code mmHg = 8342499379) AoV Peak PG (test code mmHg = 1015887770) AoV Vmax (test code = 2.20 m/s 6180162537) AoV VTI (test code = 0.30 m 8777591145) IVS,d (test code = 1.39 cm 3860322875) IVS/LVPW,2D (test code = 1667567722) Left Atrium Dimension 4.41 cm Anterior (test code = 5747644123) LV,d (test code = 3.70 cm 0016962161) LV EF,2D (test code = 68.99 % 3533791234) LV,s (test code = 2.50 cm 5472759865) LVOT area (test code = 3.83 cm2 8409925242) LVOT Diam,S (test code 2.21 cm = 3504210287) LVOT Vmax (test code = 1.07 m/s 2644168246) LVOT VTI (test code = 0.22 m 2375625282) LVPWD,d (test code = 1.24 cm 7210132767) PV Pk Grad (test code mmHg = 9806345833) PV VMAX (test code = 1.21 m/s 7982826311) RVOT Vmax (test code = 0.76 m/s 3119813326) TR Vpeak (test code = 3.12 mm/s 9075878645) AR Press Half Time 389.00 ms (test code = 1050920709) MV E A ratio (test code = 6942990025) TR pk grad (test code mmHg = 9272491305) MR Vmax (test code = 4.83 m/s 3998209778) E wave decelartion msec time (test code = 8505778207) MV Peak A Dario (test 1.80 m/s code = 8373081303) MV valve area p 1/2 2.15 cm2 method (test code = 3051191597) MV Peak E Dario (test 1.62 m/s code = 5260551765) MV stenosis pressure 102.22 ms 1/2 time (test code = 0059062172) LVOT stroke volume 0.84 cm3 (test code = 5368735614) AV LVOT peak gradient mmHg (test code = 2417613104) Ascending aorta (test 3.02 cm code = 6470385020) Ao Root Diameter (test 3.10 cm code = 3687478777) MV mean gradient (test mmHg code = 6368670118) LV SYS VOL (test code 22.35 ml = 7398632577) LV BLANTON VOL (test code 57.96 ml = 1806069445) LA area s A4C (test 18.32 cm2 code = 4887065220) LV SV Teich 2D (test 35.61 ml code = 1370449129) LV Vol s Teich PSAX 22.35 ml (test code = 9636845731) MR peak grad (test mmHg code = 1180597157) MV Vmax (test code = 1.91 m 0773632484) MV VTI Tips (test code 0.51 m = 8114334395) RVOT pk grad (test mmHg code = 0750381215) AoV Vmn (test code = 7161453883) LV FS Teich 2D (test code = 3023559421) MV AE ratio (test code = 6928474234) AR slope (test code = 3975589460) Ar Vmax (test code = 4679272177) LV FS Cube 2D (test code = 5055718524) LVOT Vmn (test code = 5128709849) Aov area Vmn (test 2.17 cm2 code = 8667939188) LVOT mean grad (test mmHg code = 3556943007) MAX Pred HR (test code = 6826526931) 85 of MPHR (test code = 5083853762) AR DT (test code = msec 3057448492) AR pk grad (test code mmHg = 9326385309) Calc MPHR (test code = bpm 8104000465) LV SV Cube 2D (test 34.82 ml code = 3066378637) LV vol d cube 2D (test 50.47 ml code = 4682897640) LV vol s cube 2D (test 15.65 ml code = 6203155118) MV Decel slope (test 6.82 m/s2 code = 0469071322) Pred Exer Dur R1 (test code = 6958677852) Pred METS R1 (test code = 2015298759) LA Vol MOD A4C (test 45.83 ml code = 5076463522) Velocity Ratio (V1/V2) 0.49 m/s (test code = 4689) EF (test code = 61.44 % 5469242055) E/A ratio (test code = 5578878537) LVOT VTI (CM) (test 22.00 cm code = 7469784222) LLOYD (test code = LLOYD) Left Ventricular ejection fraction is 60 - 65% There is mild left ventricular concentric hypertrophy Grade I diastolic dysfunction, impaired relaxation with normal filling pressure. 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 DVI 0.65 (normal > 0.50). Mild PVL is seen The mitral valve appears calcified. Moderate mitral valve stenosis Mild mitral valve regurgitation Trace tricuspid valve regurgitation No significant pulmonary valve regurgitation Normal right ventricular size, wall thickness and global function. Left VentricleThe left ventricular chamber size is normal. Left ventricular systolic function is normal. Left Ventricular ejection fraction is 60 - 65%. There is mild left ventricular concentric hypertrophy. Normal left ventricular regional wall motion.Right VentricleNormal right ventricular size, wall thickness and global function.Left AtriumLA size is normal. The left atrium size by volume is mildly dilated. The inter-atrial septum is normal.Right AtriumThe right atrium is normal.Mitral ValveThe mitral valve appears calcified. Mild mitral valve regurgitation. Moderate mitral valve stenosis.Tricuspid ValveThe tricuspid valve appears normal. Trace tricuspid valve regurgitation.Aortic ValveThere is a TAVR bioprosthetic aortic valve present. DVI 0.65 (normal > 0.50). Mild PVL is seen.Pulmonic ValveNo significant pulmonary valve regurgitation.Pericardi umNo pericardial effusion seen.DiastologySpectral Doppler shows impaired relaxation pattern of LV diastolic filling. Grade I diastolic dysfunction, impaired relaxation with normal filling pressure.AortaAortic root is normal. [facility] clotting [id number] 18:59:45 Test Item Value Reference Range Interpretation Comments Activated clotting time See_Comment Oper ator: Ada (test code = 5298) [employer] e ID:[id number] [Automated mess age] The system which nerated this result tra nsmitted reference range : 96 - 152 sec. The refere nce range was not used to interpret this result as normal/abnormal . [facility]Act[facility] clotting [id number] 18:59:45 Test Item Value Reference Range Interpretation Comments Activated clotting time See_Comment Oper ator: Ada (test code = 5298) [employer] e ID:[id number] [Automated mess age] The system which nerated this result tra nsmitted reference range : 96 - 152 sec. The refere nce range was not used to interpret this result as normal/abnormal . [facility]2021-11-11 13:43:34 Test Item Value Reference Range Interpretation Comments POC glucose (test code = 185 mg/dL 65-99 H Ope rator Name: [id number]) Carson Guerrero ID: [id number] able : RN Notified Lab Interpretation (test Abnormal code = 31535-5) [facility] [id number] 13:43:34 Test Item Value Reference Range Interpretation Comments POC glucose (test code = 185 mg/dL 65-99 H Ope rator Name: [id number]) Carson Guerrero ID: [id number] able : RN Notified Lab Interpretation (test Abnormal code = 93262-8) [facility], (w Contrast, Strain and 3D if needed)2021-07-31 15:54:25 Test Item Value Reference Range Interpretation Comments Velocity Ratio 0.66 m/s (V1/V2) (test code = 4689) IVS,d (test code = 1.18 cm 5950656910) EF (test code = 60.93 % 5388926329) Ascending aorta (test 3.29 cm code = 3368493210) LVPWD,d (test code = 1.26 cm 4175538077) AoV Mean PG (test mmHg code = 3983151251) AV LVOT peak gradient mmHg (test code = 4835204241) MV mean gradient mmHg (test code = 7302228418) MV valve area p 1/2 2.68 cm2 method (test code = 3872274772) PV Pk Grad (test code mmHg = 8473432348) E/A ratio (test code = 5734935475) E wave decelartion msec time (test code = 1067219087) LVOT Diam,S (test 2.10 cm code = 3396015442) LVOT area (test code 3.46 cm2 = 4822750539) LVOT Vmax (test code 1.03 m/s = 7234955117) RVOT Vmax (test code 0.80 m/s = 8908633546) LVOT stroke volume 0.69 cm3 (test code = 6224727361) AoV Peak PG (test mmHg code = 5695376125) MV Peak E Dario (test 1.73 m/s code = 5945543199) MV stenosis pressure 82.17 ms 1/2 time (test code = 7177791216) MV Peak A Dario (test 1.33 m/s code = 9043192012) Ao Root Diameter 2.62 cm (test code = 4386341675) AoV Area, Vmax (test 2.24 cm2 code = 5405562580) AoV Area, VTI (test 2.46 cm2 code = 1969520813) AoV Vmax (test code = 1.56 m/s 1411337074) IVS/LVPW,2D (test code = 2400727689) Left Atrium Dimension 5.09 cm Anterior (test code = 2088811007) LV,d (test code = 4.74 cm 6990953118) LV,s (test code = 3.20 cm 5391925439) PV VMAX (test code = 1.18 m/s 8342852061) TR Vpeak (test code = 3.36 mm/s 1618663670) MV E A ratio (test code = 0582371089) TR pk grad (test code mmHg = 4403621533) MR peak grad (test mmHg code = 4271817483) Ao Root Diameter 2.62 cm (test code = 0795739419) LV SYS VOL (test code 40.81 ml = 8904997788) LV BLANTON VOL (test 104.45 ml code = 4098873299) LA area s A4C (test 22.97 cm2 code = 6610491670) LA Vol MOD A4C (test 72.10 ml code = 6227967651) LV SV Teich 2D (test 63.65 ml code = 7300792983) LV Vol s Teich PSAX 40.81 ml (test code = 6222684711) MV Vmax (test code = 1.93 m 1478455726) MV VTI Tips (test 0.52 m code = 5548365815) RVOT pk grad (test mmHg code = 6793951678) AoV Vmn (test code = 8413806886) LV FS Cube 2D (test code = 3871345849) LV FS Teich 2D (test code = 0418116588) LVOT VTI (CM) (test 20.00 cm code = 8916055440) AoV VTI (test code = 0.28 m 7020052801) LV EF,2D (test code = 69.39 % 1217881442) LVOT VTI (test code = 0.20 m 3786907445) MR Vmax (test code = 5.53 m/s 5519341856) MV AE ratio (test code = 3479242299) LVOT Vmn (test code = 4775152992) Aov area Vmn (test 2.35 cm2 code = 5374462522) LVOT mean grad (test mmHg code = 3995104777) MAX Pred HR (test code = 9314501556) 85 of MPHR (test code = 3804966674) Calc MPHR (test code bpm = 1484238831) LV SV Cube 2D (test 73.94 ml code = 9881654877) LV vol d cube 2D 106.55 ml (test code = 3605832042) LV vol s cube 2D 32.62 ml (test code = 9093349616) MV Decel slope (test 6.10 m/s2 code = 6935235940) Pred Exer Dur R1 (test code = 4694558576) Pred METS R1 (test code = 3062165007) LLOYD (test code = LLOYD) The left ventricle is not well visualized, IV Definity given for endocardial visualization. Grossly normal wall motion. 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 DVI 0.68 (normal > 0.50). Trace PVL is seen The mitral valve appears calcified. Mild mitral valve stenosis Mild mitral valve regurgitation Trace tricuspid valve regurgitation No significant pulmonary valve regurgitation Normal right ventricular size, wall thickness and global function Left VentricleThe left ventricle is not well visualized. The left ventricular chamber size is normal. Left ventricular systolic function is normal. Left Ventricular ejection fraction is 60 - 65%. There is mild left ventricular concentric hypertrophy. Normal left ventricular regional wall motion.Right VentricleNormal right ventricular size, wall thickness and global function.Left AtriumThe left atrium size by volume is mildly dilated.Right AtriumThe right atrium is normal.Mitral ValveThe mitral valve appears calcified. Mild mitral valve regurgitation. Mild mitral valve stenosis. Mild mitral annular calcification.Tricuspid ValveThe tricuspid valve appears normal. Trace tricuspid valve regurgitation.Aortic ValveThere is a TAVR bioprosthetic aortic valve present. DVI 0.68 (normal > 0.50). Trace PVL is seen.Pulmonic ValveNo significant pulmonary valve regurgitation.Pericardiu mNo pericardial effusion seen.DiastologySpectral Doppler shows pseudonormal pattern of LV diastolic filling.AortaAortic root is normal. [facility], (w Contrast, Strain and 3D if needed)2021-07-31 15:54:25 Test Item Value Reference Range Interpretation Comments Velocity Ratio 0.66 m/s (V1/V2) (test code = 4689) IVS,d (test code = 1.18 cm 0994658710) EF (test code = 60.93 % 9139239040) Ascending aorta (test 3.29 cm code = 6251567370) LVPWD,d (test code = 1.26 cm 8526727508) AoV Mean PG (test mmHg code = 9216441571) AV LVOT peak gradient mmHg (test code = 5468681665) MV mean gradient mmHg (test code = 3530597140) MV valve area p 1/2 2.68 cm2 method (test code = 0296825473) PV Pk Grad (test code mmHg = 0437500274) E/A ratio (test code = 2916137998) E wave decelartion msec time (test code = 1446748997) LVOT Diam,S (test 2.10 cm code = 4580326379) LVOT area (test code 3.46 cm2 = 1249165381) LVOT Vmax (test code 1.03 m/s = 8304815470) RVOT Vmax (test code 0.80 m/s = 6654740132) LVOT stroke volume 0.69 cm3 (test code = 8976633545) AoV Peak PG (test mmHg code = 3769101850) MV Peak E Dario (test 1.73 m/s code = 1538114841) MV stenosis pressure 82.17 ms 1/2 time (test code = 0208590720) MV Peak A Dario (test 1.33 m/s code = 1904152450) Ao Root Diameter 2.62 cm (test code = 2519198098) AoV Area, Vmax (test 2.24 cm2 code = 1131113767) AoV Area, VTI (test 2.46 cm2 code = 5297767435) AoV Vmax (test code = 1.56 m/s [id number]) IVS/LVPW,2D (test code = 9300915905) Left Atrium Dimension 5.09 cm Anterior (test code = 4010085424) LV,d (test code = 4.74 cm 3942977215) LV,s (test code = 3.20 cm 4849894313) PV VMAX (test code = 1.18 m/s 6131676201) TR Vpeak (test code = 3.36 mm/s 6259448453) MV E A ratio (test code = 7560965862) TR pk grad (test code mmHg = 2031177619) MR peak grad (test mmHg code = 0814529163) Ao Root Diameter 2.62 cm (test code = 0869038529) LV SYS VOL (test code 40.81 ml = 8570718091) LV BLANTON VOL (test 104.45 ml code = 7688683086) LA area s A4C (test 22.97 cm2 code = 9718930249) LA Vol MOD A4C (test 72.10 ml code = 2703722625) LV SV Teich 2D (test 63.65 ml code = 6983060105) LV Vol s Teich PSAX 40.81 ml (test code = 5553834967) MV Vmax (test code = 1.93 m 7293882424) MV VTI Tips (test 0.52 m code = 8586974798) RVOT pk grad (test mmHg code = 0475921184) AoV Vmn (test code = 9647599533) LV FS Cube 2D (test code = 5179109327) LV FS Teich 2D (test code = 0394441383) LVOT VTI (CM) (test 20.00 cm code = 7212453494) AoV VTI (test code = 0.28 m 1156252785) LV EF,2D (test code = 69.39 % 1604419038) LVOT VTI (test code = 0.20 m 5005523322) MR Vmax (test code = 5.53 m/s 7058183028) MV AE ratio (test code = 0213971335) LVOT Vmn (test code = 4137452337) Aov area Vmn (test 2.35 cm2 code = 2038775822) LVOT mean grad (test mmHg code = 4580583398) MAX Pred HR (test code = 2301087535) 85 of MPHR (test code = 8334418984) Calc MPHR (test code bpm = 8064663629) LV SV Cube 2D (test 73.94 ml code = 6339141541) LV vol d cube 2D 106.55 ml (test code = 2044561525) LV vol s cube 2D 32.62 ml (test code = 8854167380) MV Decel slope (test 6.10 m/s2 code = 3665985951) Pred Exer Dur R1 (test code = 4258407557) Pred METS R1 (test code = 4837865742) LLOYD (test code = LLOYD) The left ventricle is not well visualized, IV Definity given for endocardial visualization. Grossly normal wall motion. 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 DVI 0.68 (normal > 0.50). Trace PVL is seen The mitral valve appears calcified. Mild mitral valve stenosis Mild mitral valve regurgitation Trace tricuspid valve regurgitation No significant pulmonary valve regurgitation Normal right ventricular size, wall thickness and global function Left VentricleThe left ventricle is not well visualized. The left ventricular chamber size is normal. Left ventricular systolic function is normal. Left Ventricular ejection fraction is 60 - 65%. There is mild left ventricular concentric hypertrophy. Normal left ventricular regional wall motion.Right VentricleNormal right ventricular size, wall thickness and global function.Left AtriumThe left atrium size by volume is mildly dilated.Right AtriumThe right atrium is normal.Mitral ValveThe mitral valve appears calcified. Mild mitral valve regurgitation. Mild mitral valve stenosis. Mild mitral annular calcification.Tricuspid ValveThe tricuspid valve appears normal. Trace tricuspid valve regurgitation.Aortic ValveThere is a TAVR bioprosthetic aortic valve present. DVI 0.68 (normal > 0.50). Trace PVL is seen.Pulmonic ValveNo significant pulmonary valve regurgitation.Pericardiu mNo pericardial effusion seen.DiastologySpectral Doppler shows pseudonormal pattern of LV diastolic filling.AortaAortic root is normal. [facility] [id number] 17:20:59 Test Item Value Reference Range Interpretation Comments pH, arterial (test code 7.35-7.45 L = 2744-1) pCO2, arterial (test See_Comment [Autom ated code = 2019-8) message] The system which generated this result transmitted reference range : 35 - 45 mmHg. The reference range was not used to interpret this result as normal/abnormal . pO2, arterial (test See_Comment L [Automa criss code = 2703-7) message] The system which generated this result transmitted reference range : 80 - 90 mmHg. The reference range was not used to interpret this result as normal/abnormal . Bicarbonate, arterial 23.5 mmol/L 21.0-28.0 (test code = 1960-4) Base excess, arterial See_Comment [Auto mated (test code = 1925-7) message ] The system which generated this result transmitted reference range : -2 - 2 mEq/L. The reference range was not used to interpret this result as normal/abnormal . O2 saturation, arterial 94 % 95-100 L (test code = 2708-6) Lab Interpretation Abnormal (test code = 90770-7) [facility], [id number] 17:20:59 Test Item Value Reference Range Interpretation Comments Ionized calcium, arterial (test 1.16 mmol/L 1.11-1.32 code = 69107-7) [facility] [id number] 17:20:59 Test Item Value Reference Range Interpretation Comments pH, arterial (test code 7.35-7.45 L = 2744-1) pCO2, arterial (test See_Comment [Autom ated code = 2019-8) message] The system which generated this result transmitted reference range : 35 - 45 mmHg. The reference range was not used to interpret this result as normal/abnormal . pO2, arterial (test See_Comment L [Automa criss code = 2703-7) message] The system which generated this result transmitted reference range : 80 - 90 mmHg. The reference range was not used to interpret this result as normal/abnormal . Bicarbonate, arterial 23.5 mmol/L 21.0-28.0 (test code = 1960-4) Base excess, arterial See_Comment [Auto mated (test code = 1925-7) message ] The system which generated this result transmitted reference range : -2 - 2 mEq/L. The reference range was not used to interpret this result as normal/abnormal . O2 saturation, arterial 94 % 95-100 L (test code = 2708-6) Lab Interpretation Abnormal (test code = 50276-1) [facility], [id number] 17:20:59 Test Item Value Reference Range Interpretation Comments Ionized calcium, arterial (test 1.16 mmol/L 1.11-1.32 code = 37173-7) [facility], [id number] 15:55:15 Test Item Value Reference Range Interpretation Comments pH, arterial (test code 7.35-7.45 = 2744-1) pCO2, arterial (test See_Comment [Autom ated message] code = 2019-8) The system [employer] ich generated this result transmitted ref erence range: 35 - 45 mmHg. The reference r david was not used to interpret this result as normal/abnor mal. pO2, arterial (test code See_Comment H [A utomated message] = 2703-7) The system [employer] generated this result transmitted ref erence range: 80 - 90 mmHg. The reference r david was not used to interpret this result as normal/abnor mal. Temperature, Celsius Degrees C (test code = 8310-5) O2 saturation, arterial 99 % 95-100 (test code = 2708-6) pH, arterial corrected (test code = 05164-7) pCO2, arterial corrected mmHg (test code = 04649-7) pO2, arterial corrected mmHg (test code = 72023-1) Base excess, arterial See_Comment L [Auto mated message] (test code = 1925-7) The [facility] tem which generated this result transmitted ref erence range: -2 - 2 m Eq/L. The reference r david was not used to interpret this result as normal/abnor mal. Lab Interpretation (test Abnormal code = 28647-4) [facility] HospitalGlucose level, [id number] 15:55:15 Test Item Value Reference Range Interpretation Comments Glucose, syringe (test code = 193 mg/dL 65-99 H 2345-7) Lab Interpretation (test code = Abnormal 37974-6) [facility] HospitalHemoglobin, [id number] 15:55:15 Test Item Value Reference Range Interpretation Comments Hemoglobin, syringe (test code = 11.9 g/dL 14.0-18.0 L 718-7) Lab Interpretation (test code = Abnormal 39033-9) [facility] Hospital[facility]assium, [id number] 15:55:15 Test Item Value Reference Range Interpretation Comments Potassium, syringe See_Comment [Automat ed message] The (test code = 2007) system [facility] generated this result tra nsmitted reference range : 3.5 - 5.0 mEq/L. The refe rence range was not used to interpret this result as normal/abnormal . [facility], [id number] 15:55:15 Test Item Value Reference Range Interpretation Comments Sodium, syringe (test See_Comment [Auto mated message] The code = 2947-0) system which generated this result tra nsmitted reference range : 125 - 148 mEq/L. The refe rence range was not used to interpret this result as normal/abnormal . [facility], [id number] 15:55:15 Test Item Value Reference Range Interpretation Comments pH, arterial (test code 7.35-7.45 = 2744-1) pCO2, arterial (test See_Comment [Autom ated message] code = 2019-8) The system [facility] generated this result transmitted ref erence range: 35 - 45 mmHg. The reference r david was not used to interpret this result as normal/abnor mal. pO2, arterial (test code See_Comment H [A utomated message] = 2703-7) The system [facility] h generated this result transmitted ref erence range: 80 - 90 mmHg. The reference r david was not used to interpret this result as normal/abnor mal. Temperature, Celsius Degrees C (test code = 8310-5) O2 saturation, arterial 99 % 95-100 (test code = 2708-6) pH, arterial corrected (test code = 34471-8) pCO2, arterial corrected mmHg (test code = 08743-4) pO2, arterial corrected mmHg (test code = 58261-8) Base excess, arterial See_Comment L [Auto mated message] (test code = 1925-7) The [facility] tem which generated this result transmitted ref erence range: -2 - 2 m Eq/L. The reference r david was not used to interpret this result as normal/abnor mal. Lab Interpretation (test Abnormal code = 27691-3) [facility] HospitalGlucose level, [id number] 15:55:15 Test Item Value Reference Range Interpretation Comments Glucose, syringe (test code = 193 mg/dL 65-99 H 2345-7) Lab Interpretation (test code = Abnormal 21011-2) [facility] HospitalHemoglobin, [id number] 15:55:15 Test Item Value Reference Range Interpretation Comments Hemoglobin, syringe (test code = 11.9 g/dL 14.0-18.0 L 718-7) Lab Interpretation (test code = Abnormal 19789-5) [facility] HospitalPotassium, [id number] 15:55:15 Test Item Value Reference Range Interpretation Comments Potassium, syringe See_Comment [Automat ed message] The (test code = 2007) system wh ich generated this result tra nsmitted reference range : 3.5 - 5.0 mEq/L. The refe rence range was not used to interpret this result as normal/abnormal . [facility], [id number] 15:55:15 Test Item Value Reference Range Interpretation Comments Sodium, syringe (test See_Comment [Auto mated message] The code = 2947-0) system which generated this result tra nsmitted reference range : 125 - 148 mEq/L. The refe rence range was not used to interpret this result as normal/abnormal . [facility] Pre/Post [id number] 01:03:51 Test Item Value Reference Range Interpretation Comments Ventricular rate (test code = 253) Atrial rate (test code = 255) MO interval (test code = 266) QRSD interval (test code = 260) QT interval (test code = 264) QTC interval (test code = 265) P axis 1 (test code = 267) QRS axis 1 (test code = 268) T wave axis (test code = 270) EKG impression (test Normal sinus code = 273) rhythm-Anterior infarct , age undetermined-Abnormal ECG-In automated comparison with ECG of 05-APR-2020 19:02,-Anterior infarct is now present-T wave inversion no longer evident in Inferior leads- [facility] Pre/Post [id number] 01:03:51 Test Item Value Reference Range Interpretation Comments Ventricular rate (test code = 253) Atrial rate (test code = 255) MO interval (test code = 266) QRSD interval (test code = 260) QT interval (test code = 264) QTC interval (test code = 265) P axis 1 (test code = 267) QRS axis 1 (test code = 268) T wave axis (test code = 270) EKG impression (test Normal sinus code = 273) rhythm-Anterior infarct , age undetermined-Abnormal ECG-In automated comparison with ECG of 05-APR-2020 19:02,-Anterior infarct is now present-T wave inversion no longer evident in Inferior leads- [facility] and [id number] 19:27:00 Test Item Value Reference Range Interpretation Comments ABO grouping (test code = 883-9) A Rh type (test code = 26878-0) POS Antibody screen (gel) (test code = NEG 890-4) [facility]Type and [id number] 19:27:00 Test Item Value Reference Range Interpretation Comments ABO grouping (test code = 883-9) A Rh type (test code = 90531-1) POS Antibody screen (gel) (test code = NEG 890-4) [facility] RNA [Presence] in Respiratory specimen by MAKAYLA with probe [id number] 18:27:46 Test Item Value Reference Range Interpretation Comments SARS-CoV-2 (COVID-19) RNA Not detected Not-Detected [Presence] in Respiratory specimen by MAKAYLA with probe detection (test code = 65351-5) Whether patient is employed in a healthcare setting (test code = 15133-4) Whether the patient has symptoms related to condition of interest (test code = 06570-4) Patient was hospitalized because of this condition (test code = 42825-2) Whether the patient was admitted to intensive care unit (ICU) for condition of interest (test code = 09771-8) Whether patient resides in a congregate care setting (test code = 30173-7) [facility] [id number] 17:50:46 Test Item Value Reference Range Interpretation Comments Urine culture (test SEE COMMENT Bacteriu elie screen code = 6172397) negative. [facility] [id number] 17:50:46 Test Item Value Reference Range Interpretation Comments Urine culture (test SEE COMMENT Bacteriu elie screen code = 0748740) negative. [facility]-CoV-2 (COVID-19) RNA [Presence] in Respiratory specimen by MAKAYLA with probe [id number] 14:33:11 Test Item Value Reference Range Interpretation Comments SARS-CoV-2 (COVID-19) RNA Not detected Not-Detected [Presence] in Respiratory specimen by MAKAYLA with probe detection (test code = 82133-5) Whether patient is employed in a healthcare setting (test code = 12792-5) Whether the patient has symptoms related to condition of interest (test code = 01610-6) Patient was hospitalized because of this condition (test code = 14523-1) Whether the patient was admitted to intensive care unit (ICU) for condition of interest (test code = 81597-0) Whether patient resides in a congregate care setting (test code = 22400-4) [facility] glycosylated hemoglobin (Hb A1C) 2021-07-04 17:49:00 Test Item Value Reference Range Interpretation Comments POC Hemoglobin A1C (test code = 7.5 % 1714261) [facility] [id number] 16:19:04 Test Item Value Reference Range Interpretation Comments POC creatinine (test 1.0 mg/dl 0.7-1.2 Operato r Name: code = 09105-4) [facility] BDevice ID: [id number] [facility]-CoV-2 (COVID-19) RNA [Presence] in Respiratory specimen by MAKAYLA with probe [id number] 02:09:00 Test Item Value Reference Range Interpretation Comments SARS-CoV-2 (COVID-19) RNA Not detected Not-Detected [Presence] in Respiratory specimen by MAKAYLA with probe detection (test code = 53464-5) [facility] [Presence] in Respiratory specimen by MAKAYLA with probe [id number] 01:53:52 Test Item Value Reference Range Interpretation Comments SARS-CoV-2 (COVID-19) RNA Not detected Not-Detected [Presence] in Respiratory specimen by MAKAYLA with probe detection (test code = 26377-7) [facility] RNA [Presence] in Respiratory specimen by MAKAYLA with probe [id number] 00:57:04 Test Item Value Reference Range Interpretation Comments SARS-CoV-2 (COVID-19) RNA Not detected Not-Detected [Presence] in Respiratory specimen by MAKAYLA with probe detection (test code = 93750-5) [facility]
[2022-07-14] MEDS ORDERED: LEVALBUTEROL 1.25 MG/3 ML NEB ONE (23:01)
[2022-07-14] MEDS ORDERED: FUROSEMIDE 40 MG/4 ML VIAL ONE (23:20)
[2022-07-14 23:44] LABS: Absolute Lymphocytes (CBC) 0.6 K/uL (0.7-4.9); Lymphocytes % 5.5 % (15.3-44.8); MCV 79.3 fL (80-100); MPV 8.5 fL (7.6-11.3); RBC Red Blood Cell Count 5.55 M/uL (4.33-5.43)
[2022-07-14 23:57] LABS: Albumin 4.3 g/dL (3.4-5.0); Bilirubin Direct 0.5 mg/dL (0-0.2); Bilirubin Total 1.6 mg/dL (0.2-1.0); Magnesium 1.8 mg/dL (1.8-2.4); Potassium 3.8 mmol/L (3.5-5.1); Protein, Total 8.7 g/dL (6.4-8.2)
[2022-07-14 23:58] LABS: Urine Blood 2+ (Negative); Urine Glucose Trace (Negative); Urine Protein 2+ (Negative); Urine Specific Gravity >=1.030 (1.005-1.030)
[2022-07-15 00:08] LABS: Troponin High Sensitivity 99.1 pg/mL (<58.9)
[2022-07-15 00:11] LABS: Urine Mucus Slight /HPF (None Seen); Urine RBC <5 /HPF (None Seen)
[2022-07-15 00:20] LABS: Protime INR 0.87
--- NOTE | 2022-07-15 00:34 | ER ---
Nurse's Notes [facility] Name: Jonathon Pimentel Age: 77 yrs Sex: Male : 1945 Arrival Date: 07/14/2022 Time: 21:55 Bed 14 Private MD: Diagnosis: Influenza due to other identified influenza virus with pneumonia;Pneumonia due to SARS-associated coronavirus;Hypoxemia Presentation: 07/14 22:24 Chief complaint: Spouse and/or significant other states: "He's having trouble as6 breathing". Coronavirus screen: At this time, the client does not indicate any symptoms associated with coronavirus-19. Ebola Screen: No symptoms or risks identified at this time. Initial Sepsis Screen: Does the patient meet any 2 criteria? RR > 20 per min. HR > 90 bpm. Yes Does the patient have a suspected source of infection? Yes: Productive cough/pneumonia. Risk Assessment: Do you want to hurt yourself or someone else? Patient reports no desire to harm self or others. Onset of symptoms was July 13, 2022. 22:24 Method Of Arrival: Wheelchair as6 22:24 Acuity: MARLENA 2 as6 Triage Assessment: 22:30 General: Appears uncomfortable, obese, Behavior is cooperative. Respiratory: Reports vc1 shortness of breath Onset: The symptoms/episode began/occurred gradually, the patient has moderate shortness of breath. Historical: - Allergies: 22:26 No Known Allergies; as6 - PMHx: 22:26 Hypertensive disorder; Diabetes mellitus; as6 - PSHx: 22:26 valve; as6 - Immunization history:: Client reports receiving the 2nd dose of the Covid vaccine, pfizer . - Social history:: Smoking status: Patient denies any tobacco usage or history of. Screenin/25 00:46 Abuse screen: Denies threats or abuse. Nutritional screening: No deficits noted. vc1 Tuberculosis screening: No symptoms or risk factors identified. Fall Risk None identified. Assessment: 07/14 22:30 Pain: Denies pain. Cardiovascular: Rhythm is sinus tachycardia with unifocal PVCs. vc1 Respiratory: Airway is patent Respiratory effort is even, labored, Respiratory pattern is tachypnea Breath sounds are diminished. 07/15 00:30 Reassessment: No changes from previously documented assessment. Patient and/or family vc1 updated on plan of care and expected duration. Pain level reassessed. Patient states symptoms have improved. 01:38 Reassessment: No changes from previously documented assessment. Patient and/or family vc1 updated on plan of care and expected duration. Pain level reassessed. Patient denies pain at this time. Patient states feeling better. Patient states symptoms have improved. Vital Signs: 07/14 22:24 BP 138 / 57; Pulse 120; Resp 22 S; Temp 99.1(O); Pulse Ox 88% on R/A; Weight 113.4 kg as6 (R); Height 5 ft. 10 in. (177.80 cm) (R); Pain 8/10; 23:00 BP 146 / 66; Pulse 116; Resp 32; Pulse Ox 97% on 3 lpm NC; vc1 07/15 00:00 BP 129 / 62; Pulse 132; Resp 25; Pulse Ox 92% on 3 lpm NC; vc1 00:45 Temp 98.7; vc1 00:50 BP 138 / 73; Pulse 112; Resp 24; Pulse Ox 94% on 3 lpm NC; vc1 01:47 Pulse 112; vc1 07/14 22:24 Body Mass Index 35.87 (113.40 kg, 177.80 cm) as6 ED Course: 07/14 21:55 Patient arrived in ED. am2 22:26 Triage completed. as6 22:27 Arm band placed on. as6 22:30 Jose Luis Ceron PA is [facility]. cp 22:30 Jose Luis Aguilar MD is Attending Physician. cp 22:30 Patient has correct armband on for positive identification. Placed in gown. Bed in low vc1 position. Call light in reach. Side rails up X2. Client placed on continuous cardiac and pulse oximetry monitoring. NIBP monitoring applied. 22:58 XRAY Chest (1 view) In Process Unspecified. EDMS 23:00 Inserted saline lock: 20 gauge in right antecubital area, using aseptic technique. vc1 Blood collected. 23:06 Emeli Alegria, CRISTHIAN is Primary Nurse. vc1 23:15 COVID-19 SARS RT PCR (Document "Date of Onset" if Symptomatic) Sent. vc1 23:15 Influenza Screen (a \\T\\ B) Sent. vc1 07/15 00:08 Notified Nurse Practitioner and/or Physician Commissions Coordinator of a critical lab result(s), bb troponin of 99.1 Jose Luis AMARO notified. 00:33 Sharan Pitts MD is Hospitalizing Provider. cp 02:06 No provider procedures requiring assistance completed. Patient admitted, IV remains in vc1 place. 02:07 Primary Nurse role handed off by Emeli Alegria RN cp 02:08 Emeli Alegria RN is Primary Nurse. vc1 Administered Medications: 07/14 23:15 Drug: Xopenex (levalbuterol) (3) 1.25 mg Route: Inhalation; vc1 23:28 Drug: Lasix (furosemide) 40 mg Route: IVP; Site: right antecubital; vc1 07/15 01:47 Follow up: Response: No adverse reaction vc1 00:15 Not Given (Physician Discretion): NS 0.9% 500 ml IV at bolus once cp 01:07 Drug: Aspirin Chewable Tablet 324 mg Route: PO; vc1 01:47 Follow up: Response: No adverse reaction vc1 01:07 Drug: Tamiflu (oseltamivir) 75 mg Route: PO; vc1 01:47 Follow up: Response: No adverse reaction vc1 01:07 Drug: Lopressor (metoprolol) 5 mg Route: IVP; Site: right antecubital; vc1 01:47 Follow up: Pulse 112 bpm vc1 01:54 Drug: SOLU-Medrol (methylPrednisoLONE) 125 mg Route: IVP; Site: right antecubital; ll3 02:05 Follow up: Response: No adverse reaction; Marked relief of symptoms vc1 02:05 Drug: Metoprolol 50 mg Route: PO; vc1 02:05 Follow up: Response: given before transferring upstairs vc1 Medication: 01:46 VIS not applicable for this client. vc1 Outcome: 00:33 Decision to Hospitalize by Provider. cp 02:06 Admitted to Tele accompanied by tech, via wheelchair, room 417. vc1 02:06 Condition: good 02:06 Instructed on the need for admit. 02:07 Patient left the ED. vc1 02:08 Patient left the ED. vc1 Signatures: Dispatcher [employer] EDMS Adela Landers RN RN bb Page, Corey, PA PA cp Estefania Mendoza am2 Dk Biggs RN RN as6 Krystal Mares, RN RN ll3 Raji, Emeli, RN RN vc1
--- NOTE | 2022-07-15 00:34 | EDPHYS ---
Physician Documentation [facility] Name: Jonathon Pimentel Age: 77 yrs Sex: Male : 1945 Arrival Date: 07/14/2022 Time: 21:55 Bed 14 Private MD: ED Physician Jose Luis Aguilar HPI: 07/14 22:45 This 77 yrs old Male presents to ER via Wheelchair with complaints of Breathing cp Difficulty. 22:45 The patient has shortness of breath at rest. cp 22:45 Onset: The symptoms/episode began/occurred yesterday. cp 22:45 Duration: The symptoms are continuous, and are steadily getting worse. Associated signs cp and symptoms: Pertinent positives: non-productive cough, fever, Pertinent negatives: chest pain, productive cough, diaphoresis, vomiting. Severity of symptoms: in the emergency department the symptoms are unchanged despite home interventions. Historical: - Allergies: 22:26 No Known Allergies; as6 - PMHx: 22:26 Hypertensive disorder; Diabetes mellitus; as6 - PSHx: 22:26 valve; as6 - Immunization history:: Client reports receiving the 2nd dose of the Covid vaccine, [employer] . - Social history:: Smoking status: Patient denies any tobacco usage or history of. ROS: 22:50 Constitutional: Negative for fever. cp 22:50 Cardiovascular: Positive for edema, Negative for chest pain. cp 22:50 Eyes: Negative for injury, pain, redness, and discharge. cp 22:50 ENT: Negative for drainage from ear(s), ear pain, sore throat, difficulty swallowing, difficulty handling secretions. 22:50 Neck: Negative for pain with movement, pain at rest. 22:50 Respiratory: Positive for cough, shortness of breath, at rest. 22:50 Abdomen/GI: Negative for abdominal pain, vomiting, diarrhea, constipation. 22:50 Back: Negative for pain at rest, pain with movement. 22:50 Skin: Negative for rash. 22:50 Neuro: Negative for altered mental status, dizziness, headache, syncope, weakness. 22:50 All other systems are negative. Exam: 22:55 Constitutional: The patient appears in no acute distress, alert, awake, cp non-diaphoretic, non-toxic, well developed, well nourished, obese. 22:55 Head/Face: Normocephalic, atraumatic. cp 22:55 Eyes: Periorbital structures: appear normal, Conjunctiva: normal, no exudate, no injection, Sclera: no appreciated abnormality, Lids and lashes: appear normal, bilaterally. 22:55 ENT: External ear(s): are unremarkable, Ear canal(s): are normal, clear, TM's: dullness, bilaterally, Nose: is normal, Mouth: Lips: moist, Oral mucosa: moist, Posterior pharynx: Airway: no evidence of obstruction, patent, Tonsils: with erythema, no enlargement, no exudate, erythema, that is mild, exudate, is not appreciated. 22:55 Neck: ROM/movement: is normal, is supple, no meningismus, no nuchal rigidity, Lymph nodes: no appreciated lymphadenopathy. 22:55 Chest/axilla: Inspection: normal, Palpation: is normal, no crepitus, no tenderness. 22:55 Cardiovascular: Rate: tachycardic, Rhythm: regular, Edema: bilateral lower leg edema, JVD: is not appreciated. 22:55 Respiratory: the patient does not display signs of respiratory distress, Respirations: labored breathing, that is mild, intercostal retractions, are absent, Breath sounds: decreased breath sounds, that are mild, diffuse, stridor, is not appreciated, wheezing: that is mild, is heard diffusely. 22:55 Abdomen/GI: Inspection: abdomen appears normal, Bowel sounds: active, all quadrants, Palpation: abdomen is soft and non-tender, in all quadrants. 22:55 Back: pain, is absent, ROM is normal. 22:55 Skin: cellulitis, is not appreciated, no rash present. 22:55 Neuro: Orientation: to person, place \\T\\ time. Mentation: is normal, Motor: moves all fours, strength is normal, Sensation: is normal. 23:33 ECG was reviewed by the Attending Physician. cp Vital Signs: 22:24 BP 138 / 57; Pulse 120; Resp 22 S; Temp 99.1(O); Pulse Ox 88% on R/A; Weight 113.4 kg as6 (R); Height 5 ft. 10 in. (177.80 cm) (R); Pain 8/10; 23:00 BP 146 / 66; Pulse 116; Resp 32; Pulse Ox 97% on 3 lpm NC; vc1 07/15 00:00 BP 129 / 62; Pulse 132; Resp 25; Pulse Ox 92% on 3 lpm NC; vc1 00:45 Temp 98.7; vc1 00:50 BP 138 / 73; Pulse 112; Resp 24; Pulse Ox 94% on 3 lpm NC; vc1 01:47 Pulse 112; vc1 07/14 22:24 Body Mass Index 35.87 (113.40 kg, 177.80 cm) as6 MDM: 07/14 22:34 Patient medically screened. cp 23:00 Differential diagnosis: CHF exacerbation, Myocardial Infarction pneumonia, Pneumothorax cp pulmonary edema, Pulmonary Embolism Sepsis. 07/15 00:33 Data reviewed: vital signs, nurses notes, lab test result(s), EKG, radiologic studies, cp plain films. 00:33 Antibiotic administration: Not indicated, the patient has a suspected viral illness. cp Test interpretation: by ED physician or midlevel provider: ECG, plain radiologic studies. Physician consultation: Robert FLORES was called at 00:30, was contacted at 00:30, regarding admission, to the telemetry unit. patient's condition, would like further tests performed, CT scan. 07/14 22:37 Order name: Basic Metabolic Panel; Complete Time: 00:10 cp 07/15 00:10 Interpretation: Normal except: NA 135; GLUC 185; GFR 68. cp 07/14 22:37 Order name: CBC with Diff; Complete Time: 00:03 cp 07/15 00:03 Interpretation: Normal except: RBC 5.55; MCV 79.3; MCH 26.4; RDW 15.7; ANISH% 85.9; LYM% cp 5.5; NEUT A 8.9; LYMA 0.6. 07/14 22:37 Order name: LFT's; Complete Time: 00:10 cp 07/15 00:11 Interpretation: Normal except: BILIT 1.6; BILID 0.5; TP 8.7; GLOB 4.4; A/G 1.0. cp 07/14 22:37 Order name: Magnesium; Complete Time: 00:10 cp 07/14 22:37 Order name: NT PRO-BNP; Complete Time: 00:10 cp 07/14 22:37 Order name: PT-INR; Complete Time: 00:28 cp 07/15 00:28 Interpretation: Reviewed. cp 07/14 22:37 Order name: Troponin HS; Complete Time: 00:10 cp 07/15 00:12 Interpretation: Abnormal: Troponin HS 99.1. cp 07/14 22:37 Order name: Influenza Screen (a \\T\\ B); Complete Time: 00:03 cp 07/15 00:03 Interpretation: Abnormal: FLUA FLU A ----- POSITIVE for FLU A protein antigen. cp 07/14 22:37 Order name: COVID-19 SARS RT PCR (Document "Date of Onset" if Symptomatic); Complete cp Time: 01:10 07/14 22:37 Order name: Urine Microscopic Only cp 07/14 22:37 Order name: Lactate; Complete Time: 00:03 cp 07/14 22:37 Order name: Procalcitonin; Complete Time: 00:33 cp 07/14 22:37 Order name: Blood Culture Adult (2) cp 07/14 23:58 Order name: Urine Dipstick-Ancillary; Complete Time: 00:03 EDMS 07/15 00:08 Interpretation: Normal except: UKET 1+; UBLD 2+; UPROT 2+. cp 07/14 22:37 Order name: XRAY Chest (1 view) cp 07/14 22:37 Order name: EKG; Complete Time: 22:39 cp 07/14 22:37 Order name: Cardiac monitoring; Complete Time: 23:31 cp 07/14 22:37 Order name: EKG - Nurse/Tech; Complete Time: 23:31 cp 07/14 22:37 Order name: IV Saline Lock; Complete Time: 23:16 cp 07/14 22:37 Order name: Labs collected and sent; Complete Time: 23:16 cp 07/14 22:37 Order name: O2 Per Protocol; Complete Time: 23:16 cp 07/15 00:34 Order name: CT Chest For PE Angio cp 07/14 22:37 Order name: O2 Sat Monitoring; Complete Time: 23:16 cp 07/14 22:37 Order name: Urine Dipstick-Ancillary (obtain specimen); Complete Time: 00:02 cp EC/24 23:33 Rate is 119 beats/min. Rhythm is regular. [place] interval is normal. QRS interval is cp prolonged at 140 msec. QT interval is normal. T waves are Inverted in leads I, aVL, aVR. Interpreted by me. Reviewed by me. Administered Medications: 23:15 Drug: Xopenex (levalbuterol) (3) 1.25 mg Route: Inhalation; vc1 23:28 Drug: Lasix (furosemide) 40 mg Route: IVP; Site: right antecubital; vc1 07/15 01:47 Follow up: Response: No adverse reaction vc1 00:15 Not Given (Physician Discretion): NS 0.9% 500 ml IV at bolus once cp 01:07 Drug: Aspirin Chewable Tablet 324 mg Route: PO; vc1 01:47 Follow up: Response: No adverse reaction vc1 01:07 Drug: Tamiflu (oseltamivir) 75 mg Route: PO; vc1 01:47 Follow up: Response: No adverse reaction vc1 01:07 Drug: Lopressor (metoprolol) 5 mg Route: IVP; Site: right antecubital; vc1 01:47 Follow up: Pulse 112 bpm vc1 01:54 Drug: SOLU-Medrol (methylPrednisoLONE) 125 mg Route: IVP; Site: right antecubital; ll3 02:05 Follow up: Response: No adverse reaction; Marked relief of symptoms vc1 02:05 Drug: Metoprolol 50 mg Route: PO; vc1 02:05 Follow up: Response: given before transferring upstairs vc1 Disposition: 04:19 Co-signature as Attending Physician, Jose Luis Aguilar MD I agree with the assessment and anh plan of care. Disposition Summary: 07/15/22 00:33 Hospitalization Ordered Hospitalization Status: Inpatient Admission cp Provider: Sharan Pitts cp Location: Telemetry/MedSurg (Inpatient) cp Condition: Stable cp Problem: new cp Symptoms: have improved cp Bed/Room Type: Standard cp Room Assignment: 417(07/15/22 01:19) Diagnosis - Influenza due to other identified influenza virus with pneumonia cp - Pneumonia due to SARS-associated coronavirus cp - Hypoxemia cp Forms: - Medication Reconciliation Form cp - SBAR form cp Signatures: Dispatcher [employer] EDMS Majo De Anda RN RN mw Anderson, Corey, MD MD cha Attema, Lee, DIRECTOR OF WEB MARKETING-C DIRECTOR OF WEB MARKETING-Cla1 Jose Luis Ceron PA PA cp Dk Biggs RN RN as6 Krystal Mares RN RN ll3 Calcote, Emeli, RN RN vc1 Corrections: (The following items were deleted from the chart) 01:19 00:33 cp mw
[2022-07-15] MEDS ORDERED: METOPROLOL TARTRATE 5 MG/5 ML INJ IV ONE (00:59)
[2022-07-15] MEDS ORDERED: OSELTAMIVIR 75 MG CAP ONE (00:59)
[2022-07-15] MEDS ORDERED: ASPIRIN 81 MG CHEWABLE TABLET ONE (00:59)
[2022-07-15] MEDS ORDERED: NA CHLORIDE 0.9% 500 ML ONE (00:59)
--- NOTE | 2022-07-15 01:43 | P.HP ---
Certification for Inpatient Patient admitted to: Inpatient With expected LOS: >2 Midnights Patient will require the following post-hospital care: None Practitioner: I am a practitioner with admitting privileges, knowledge of patient current condition, hospital course, and medical plan of care. Services: Services provided to patient in accordance with Admission requirements found in Title 42 Section 412.3 of the Code of Federal Regulations <Robert Villela - Last Filed: 07/15/22 01:36> Patient History Date of Service: 07/15/22 Reason for admission: NSTEMI, hypoxia, viral sepsis History of Present Illness: 77-year-old male with history of hypertension, insulin-dependent diabetes, hyperlipidemia, aortic valve repair presents to the emergency department for shortness of breath. He reports feeling unwell with chills, malaise, dyspnea, fevers the last 2 days. He was evaluated here in the emergency department his labs were significant for elevated high-sensitivity troponin nine 9.1 white blood cell count 10.3 chest x-ray negative for acute findings he tested positive for both influenza A and COVID-19. He is mildly hypoxic on room air saturating around 88% is tolerating nasal cannula well currently. CT PE protocol performed which was negative for pulmonary embolism. He was given aspirin, Tamiflu in the ED, ED provider wishes to admit for further evaluation and management of acute hypoxic respiratory failure, COVID-19/influenza A, viral sepsis, NSTEMI. - Past Medical/Surgical History -: Insulin-dependent diabetes -: Hypertension -: Hyperlipidemia -: THIERRY -: Aortic valve repair Psychosocial/ Personal History: Patient is retired, lives at home with his - Family History Family History: Reviewed- Non-Contributory - Social History Smoking Status: Never smoker Alcohol use: No CD- Drugs: No Caffeine use: Yes Place of Residence: Home <Robert Villela - Last Filed: 07/15/22 01:36> Date of Service: 07/15/22 <Sharan Pitts - Last Filed: 07/15/22 10:26> Review of Systems 10-point ROS is otherwise unremarkable General: Fever, Chills, Weakness, Malaise Respiratory: Cough, Dry, Shortness of Breath, SOB with Excertion Cardiovascular: Orthopnea <Robert Villela - Last Filed: 07/15/22 01:36> Physical Examination - Physical Exam General: Alert, In no apparent distress, Oriented x3 HEENT: Atraumatic, PERRLA, Mucous membr. moist/pink, EOMI, Sclerae nonicteric Neck: Supple, 2+ carotid pulse no bruit, No LAD, Without JVD or thyroid abnormality Respiratory: Clear to auscultation bilaterally, Normal air movement Cardiovascular: Regular rate/rhythm, Normal S1 S2, Edema, Systolic murmur Capillary refill: <2 Seconds Gastrointestinal: Normal bowel sounds, No tenderness Musculoskeletal: No tenderness Integumentary: No rashes Neurological: Normal speech, Normal strength at 5/5 x4 extr, Normal tone, Normal affect Lymphatics: No axilla or inguinal lymphadenopathy - Studies Laboratory Data (last 24 hrs) 07/14/22 23:00: PT 10.4, INR 0.87 07/14/22 23:00: WBC 10.30, Hgb 14.6, Hct 44.0, Plt Count 176 07/14/22 23:00: Sodium 135 L, Potassium 3.8, BUN 14, Creatinine 1.11, Glucose 185 H, Magnesium 1.8, Total Bilirubin 1.6 H, AST 35, ALT 31, Alkaline Phosphatase 97 Microbiology Data (last 24 hrs): 07/14/22 23:11 Nasopharnyx Influenza Type A Antigen Screen - Final 07/14/22 23:11 Nasopharnyx Influenza Type B Antigen Screen - Final <Robert Villela - Last Filed: 07/15/22 01:36> - Studies Laboratory Data (last 24 hrs) 07/14/22 23:00: PT 10.4, INR 0.87 07/14/22 23:00: WBC 10.30, Hgb 14.6, Hct 44.0, Plt Count 176 07/14/22 23:00: Sodium 135 L, Potassium 3.8, BUN 14, Creatinine 1.11, Glucose 185 H, Magnesium 1.8, Total Bilirubin 1.6 H, AST 35, ALT 31, Alkaline Phosphatase 97 Microbiology Data (last 24 hrs): 07/14/22 23:11 Nasopharnyx Influenza Type A Antigen Screen - Final 07/14/22 23:11 Nasopharnyx Influenza Type B Antigen Screen - Final <Sharan Pitts - Last Filed: 07/15/22 10:26> Assessment and Plan - Plan Assessment: Sepsis secondary to viral infection influenza a/COVID-19 Acute hypoxic respiratory failure secondary to above NSTEMI Diabetes mellitus type 2insulin-dependent with hyperglycemia Hypertension Hyperlipidemia History of aortic valve repair Plan: Sepsis secondary to viral infection influenza a/COVID-19: Viral sepsis, no hypotension, lactate normal. Continue tamiflu, supplemental 02 as needed, daily room air sats, incentive spirometry. Pulm consulted. Given covid + and hypoxia will also treat with decadron. Acute hypoxic respiratory failure secondary to above: Continue as above NSTEMI: Suspect demand ischemia, given ASA in ED, trend trop, obtain echo, cardiology consult. Diabetes mellitus type 2insulin-dependent with hyperglycemia: Pt reports recent A1c of 6, takes 30u long acting daily as well as metformin and a sulfonurea, will continue with reduced dose long acting insulin and RISS Hypertension: Hold oral HTN meds for now given sepsis, restart when appropriate. Hyperlipidemia: Continue atorvastatin History of aortic valve repair: Pt denies use of blood thinners, will need to evaluate home meds. DVT PPX: Lovenox Code status: Full Discharge Plan: Home Plan to discharge in: 72 Hours - Advance Directives Does patient have a Living Will: No Does patient have a Durable POA for Healthcare: No - Code Status/Comfort Care Code Status Assessed: Yes (Full code) Critical Care: No Time Spent Managing Pts Care (In Minutes): 70 <Robert Villela - Last Filed: 07/15/22 01:36> Physician Review: Patient Assessed, Agree with Above Assessment and Plan <Sharan Pitts - Last Filed: 07/15/22 10:26>
[2022-07-15] MEDS ORDERED: METHYLPREDNISOLONE 125 MG INJ ONE (01:51)
[2022-07-15] MEDS ORDERED: METOPROLOL TAR 50 MG TAB ONE (02:02)
[2022-07-15] MEDS ORDERED: ALBUTEROL 2.5 MG/3 ML NEB SOL NEB PRN ×2 (02:19→17:00)
[2022-07-15] MEDS ORDERED: ACETAMINOPHEN 500 MG TAB PO PRN (02:19)
[2022-07-15] MEDS ORDERED: ONDANSETRON 4 MG/2 ML VIAL IV PRN (02:19)
[2022-07-15 02:41] VITALS: BMI 35.2
[2022-07-15] MEDS: BENZONATATE 100 MG CAP PO PRN (03:56)
[2022-07-15] MEDS: Enoxaparin 120 MG/0.8 ML SYR SQ SCH ×2 (03:57→08:35)
[2022-07-15 05:56] LABS: Absolute Lymphocytes (CBC) 0.6 K/uL (0.7-4.9); MCV 79.7 fL (80-100); MPV 8.6 fL (7.6-11.3); RBC Red Blood Cell Count 5.28 M/uL (4.33-5.43)
[2022-07-15 06:17] LABS: Albumin 3.8 g/dL (3.4-5.0); Bilirubin Total 1.3 mg/dL (0.2-1.0); Potassium 3.9 mmol/L (3.5-5.1); Protein, Total 8.1 g/dL (6.4-8.2)
[2022-07-15 06:29] LABS: Troponin High Sensitivity 126.4 pg/mL (<58.9)
[2022-07-15] MEDS: INSULIN -REGULAR HUMAN 50 UNIT/0.5 ML ML SQ SCH ×4 (08:33→20:51)
[2022-07-15] MEDS: INSULIN GLARGINE 100 UNIT/ML SQ SCH (08:33)
[2022-07-15] MEDS: dexAMETHasone 4 MG TAB PO SCH (08:34)
[2022-07-15] MEDS: ASPIRIN EC 81 MG TAB PO SCH (08:34)
[2022-07-15] MEDS: OSELTAMIVIR 30 MG CAP PO SCH ×2 (08:34→20:33)
[2022-07-15] MEDS ORDERED: ENOXAPARIN 40 MG/0.4 ML SQ SCH (09:00)
--- NOTE | 2022-07-15 09:10 | RAD REPORT ---
EXAM DESCRIPTION: RAD - Chest Single View - 07/14/2022 10:56 pm CLINICAL HISTORY: SOB. COMPARISON: None. TECHNIQUE: Single view AP chest radiograph(s). FINDINGS: No pulmonary infiltrate identified. Moderate elevation of the right hemidiaphragm. No pleu ral effusion. No pneumothorax. Mild cardiomegaly. No significant osseous abnormality. IMPRESSION: No acute cardiopulmonary abnormality identified by radiograph. Mild cardiomegaly. Electronically signed by: Leila Martin MD 07/14/2022 11:26 PM CDT Due to temporary technical issues with the PACS/Fluency reporting system, reports are being signed by the in house radiologists without review as a courtesy to insure prompt reporting. The interpreting radiologist is fully responsible for the content of the report
--- NOTE | 2022-07-15 11:23 | RAD REPORT ---
EXAM DESCRIPTION: CT - Chest For Pe Angio - 07/15/2022 1:30 am CLINICAL HISTORY: 77 years, Male, shortness of breath COMPARISON: None TECHNIQUE: Multiple transaxial tomograms of the chest were obtained from the lung apices through the lung bases utilizing 3 mm slice thickness at 3 mm interval reconstruction after the administration o f large bolus of IV contrast for complete opacification of the pulmonary arteries. Subsequent 3-D maximum intensity projection images were generated in the coronal and sagittal plane f or review. This exam was performed according to our departmental dose-optimization protocol, which includes auto mated exposure control, adjustment of the mA and/or kV according to patient size and/or use of iterat quentin reconstruction technique. FINDINGS: Some of the images are compromised by breathing motion artifact limiting diagnostic value. The lungs parenchyma demonstrate minimal haziness within the lung parenchyma suggesting the possibili ty of air trapping. Elevation of the right hemidiaphragm. Compressive atelectatic changes lung bases no masses, nodules and/or consolidations are identified. The trachea mainstem bronchus demonstrate to be normal. There is no significant pericardial or right pleural effusion. There is small trace of left pleural effusion. The thoracic aorta demonstrate demonstrate very minimal intimal calcification. There is status post t ransaortic valvular repair. The heart is normal in size. No evidence for right ventricular strain. Th ere are minimal coronary artery calcifications. There is mitral annular calcification. There is no significant mediastinal and/or hilar lymphadenopathy. The axillary regions demonstrate to be clear. Pulmonary arteries demonstrate to be normal, no intraluminal defect are seen that would suggest pulmo nary embolus. The bone windows demonstrate there is minimal anterior spondylosis throughout the thoracic spine. The visualized portions of the upper abdomen demonstrate to be unremarkable. IMPRESSION: Some of the images are compromised by breathing motion artifact limiting diagnostic valu e. No evidence for pulmonary embolism and/or thoracic aortic dissection. Elevation of the right hemidiaphragm with compressive atelectatic changes lung bases. Small trace of left pleural effusion. Status post TAVR. Minimal haziness within the lung parenchyma suggesting the possibility of air trapping/atelectasis. Electronically signed by: Paul Abdullahi MD 07/15/2022 1:45 AM CDT Due to temporary technical issues with the PACS/Fluency reporting system, reports are being signed by the in house radiologists without review as a courtesy to insure prompt reporting. The interpreting radiologist is fully responsible for the content of the report
--- NOTE | 2022-07-15 12:16 | P.CNS ---
Date of Consult: 07/15/22 Reason for Consult: Coronavirus pneumonia Chief Complaint: NSTEMI, hypoxia, viral sepsis History of Present Illness: Patient is 77 years of age. With fever and shortness of breath Metabolic syndrome she has been vaccinated against coronavirus currently doing much better admitted with mild hypoxemia and emboli bilateral groundglass changes feeling much better Allergies No Known Allergies Allergy (Unverified 07/15/22 02:19) - Past Medical/Surgical History Diabetic: Yes -: Insulin-dependent diabetes -: Hypertension -: Hyperlipidemia -: THIERRY -: Aortic valve repair Psychosocial/ Personal History: Patient is retired, lives at home with his - Family History Father Medical History: Lung disease, Cancer Mother Medical History: Other (see notes) Notes: alzheimers - Social History Alcohol use: No CD- Drugs: No Caffeine use: Yes Place of Residence: Home Review of Systems 10-point ROS is otherwise unremarkable Physical Examination Temp Pulse Resp BP Pulse Ox 96.5 F L 80 20 142/66 H 98 07/15/22 08:00 07/15/22 08:00 07/15/22 08:00 07/15/22 08:00 07/15/22 08:00 General: Alert, In no apparent distress, Oriented x3 Respiratory: Clear to auscultation bilaterally Cardiovascular: No edema, Regular rate/rhythm, Normal S1 S2 Gastrointestinal: Normal bowel sounds, Soft and benign Laboratory Data (last 24 hrs) 07/14/22 23:00: PT 10.4, INR 0.87 07/14/22 23:00: WBC 10.30, Hgb 14.6, Hct 44.0, Plt Count 176 07/14/22 23:00: Sodium 135 L, Potassium 3.8, BUN 14, Creatinine 1.11, Glucose 185 H, Magnesium 1.8, Total Bilirubin 1.6 H, AST 35, ALT 31, Alkaline Phospha tase 97 - Problems (1) 2019 novel coronavirus-infected pneumonia (NCIP) Current Visit: Yes Status: Acute Plan: Patient is 77 years of age admitted with acute onset of hypoxemia fever weakness he is coronavirus positive doing much better vital signs oxygenation stable labs CT scans reviewed troponins are elevated declining most likely due to demand ischemia continue to monitor possible discharge tomorrow on low-dose Decadron troponins are declining KG not available for review there is no evidence of pulmonary embolism possible discharge tomorrow
[2022-07-15 13:16] LABS: Blood Morphology Comment NOT SEEN (NOT SEEN); Platelet Estimate ADEQ
--- NOTE | 2022-07-15 13:56 | EKG ---
Test Date: 2022-07-14 Test Time: 23:25:39 [employer] Machine Operator: YANETH MEASUREMENT RESULTS: Intervals: Rate: 119 LA: 154 QRSD: 140 QT: 344 QTc: 483 Bunch: P: 37 LA: 154 QRS: -58 T: 90 INTERPRETIVE STATEMENTS: Sinus tachycardia Left axis deviation Left bundle branch block Abnormal ECG Compared to ECG 02/21/2020 13:12:27 Left-axis deviation now present Left bundle-branch block now present Sinus rhythm no longer present ST (T wave) deviation no longer present Electronically Signed On 07-15-22 13:55:07 CDT by Ritchie Fowler
--- NOTE | 2022-07-15 15:29 | CON ---
Date of Consultation: 07/15/2022 Reason For Consultation: Elevated troponin. History Of Present Illness: A 77-year-old with history of hypertension, diabetes, dyslipidemia, aort ic valve repair with replacement, presented to the emergency room. He had a TAVR in July last ye ar. He presented with shortness of breath. Denies having any chest pain. Generally feeling weak fo r the past [address] PE protocol was negative for PE and the patient was hypoxic on arrival and was tested positive for the flu. Past Medical History: As outlined above in the HPI. Medications: Refer to reconciliation sheet for detailed list. Allergies: NO KNOWN DRUG ALLERGIES. Family History: No premature coronary artery disease or cancer. Social History: Does not smoke or drink. Does not use any drugs. Review of Systems: All systems reviewed and they were negative except what mentioned in HPI. Physical Examination: Vital Signs: Reviewed. Head and Neck: Pupils are equal, reactive to light. Intact eye movements. No JVD. No cervical lym phadenopathy. Neck is supple. Thyroid is not enlarged. Lungs: Clear to auscultation bilaterally. No rhonchi, wheezing, or crackles. No accessory muscle u se. Heart: Regular rate and rhythm. No extra sounds. Abdomen: Soft, nontender. Bowel sounds positive. No organomegaly. No masses or hernia. No rigidi ty or rebound. Extremities: No clubbing or cyanosis. Intact pulses. Skin: No rash. Neurologic: Alert, awake, oriented x3. No acute focal deficits appreciated. Investigations: His troponin is 126, then 161. BUN is 14, creatinine 1.1. Assessment And Recommendations: 1.Elevated troponin due to the current illness, demand ischemia. The patient must have had a mosley ry angiogram prior to his transcatheter aortic valve replacement and make sure he do not have any wilian nts, likely he does not have any significant coronary artery disease. At this point, no further card iac workup is recommended. Continue to monitor. 2.Influenza A. Continue Tamiflu. 3.Dyslipidemia. Continue statin. SR/MODL Voice ID: [id number] Report ID: [id number]
[2022-07-15] MEDS: ATORVASTATIN 40 MG TAB PO SCH (20:33)
[2022-07-15] MEDS ORDERED: MELATONIN 5 MG TABLET PO PRN (21:05)
[2022-07-16 03:34] LABS: Absolute Lymphocytes (CBC) 1.4 K/uL (0.7-4.9); Hematocrit 38.7 % (39.6-49.0); Lymphocytes % 7.7 % (15.3-44.8); MCV 78.9 fL (80-100); MPV 8.7 fL (7.6-11.3); RBC Red Blood Cell Count 4.91 M/uL (4.33-5.43)
[2022-07-16 03:48] LABS: Bilirubin Total 0.8 mg/dL (0.2-1.0); Potassium 3.6 mmol/L (3.5-5.1); Protein, Total 6.8 g/dL (6.4-8.2)
--- NOTE | 2022-07-16 07:19 | ECHO ---
HEIGHT: 5 ft 10 in WEIGHT: 245 lb 14.4 oz DATE OF STUDY: 07/15/[address]: Robert Villela NP 2-DIMENSIONAL: YES M.MODE: YES DOPPLER: YES COLOR FLOW: YES TDS: NO PORTABLE: YES DEFINITY: NO BUBBLE STUDY: NO DIAGNOSIS: ELEVATED TROPONIN CARDIAC HISTORY: CATHERIZATION: SURGERY: PROSTHETIC VALVE: PACEMAKER: MEASUREMENTS (cm) DIASTOLIC (NORMALS) SYSTOLIC (NORMALS) IVSd 1.3 (0.6-1.2) LA Diam 2.8 (1.9-4.0) LVEF 55-60% LVIDd 4.1 (3.5-5.7) LVIDs 3.1 (2.0-3.5) %FS 26% LVPWd 1.3 (0.6-1.2) Ao Diam 2.5 (2.0-3.7) 2 DIMENSIONAL ASSESSMENT: RIGHT ATRIUM: NORMAL LEFT ATRIUM: NORMAL RIGHT VENTRICLE: NORMAL LEFT VENTRICLE: NORMAL TRICUSPID VALVE: MILD TRICUSPID REGURGITATION MITRAL VALVE: MITRAL ANNULAR CALCIFICATION WITH SEVERE MITRAL STENOSIS PULMONIC VALVE: NORMAL AORTIC VALVE: BIOPROSTHETIC PERICARDIAL EFFUSION: NONE AORTIC ROOT: NORMAL LEFT VENTRICULAR WALL MOTION: NORMAL. DOPPLER/COLOR FLOW: SEE BELOW. COMMENTS: NORMAL LEFT VENTRICULAR EJECTION FRACTION. NORMAL WALL MOTION. MITRAL ANNULAR CALCIFICATION WITH SEVERE MITRAL STENOSIS AND MILD MITRAL REGURGITATION. AORTIC VALVE PROSTHESIS FUNCTIONING WELL WITH MILD AORTIC INSUFFICIENCY. TECHNOLOGIST: MARIA ELENA CH
[2022-07-16] MEDS ORDERED: POTASSIUM CL SA 10 MEQ TAB PO ONE (09:00)
[2022-07-16] MEDS: INSULIN -REGULAR HUMAN 50 UNIT/0.5 ML ML SQ SCH ×4 (09:06→21:34)
[2022-07-16] MEDS: ENOXAPARIN 40 MG/0.4 ML SQ SCH (09:07)
[2022-07-16] MEDS: INSULIN GLARGINE 100 UNIT/ML SQ SCH (09:07)
[2022-07-16] MEDS: OSELTAMIVIR 30 MG CAP PO SCH ×2 (09:07→21:34)
[2022-07-16] MEDS: dexAMETHasone 4 MG TAB PO SCH (09:09)
[2022-07-16] MEDS: ASPIRIN EC 81 MG TAB PO SCH (09:09)
--- NOTE | 2022-07-16 18:46 | P.PN ---
Subjective Date of Service: 07/16/22 Chief Complaint: NSTEMI, hypoxia, viral sepsis No acute events overnight. He reports that his breathing has improved compared to yesterday, but he continues to experience shortness of breath with exertion. Review of Systems 10-point ROS is otherwise unremarkable Respiratory: Cough, SOB with Excertion Physical Examination - Vital Signs Temperature: 97.3 F Blood Pressure: 140/63 Pulse: 91 Respirations: 18 Pulse Ox (%): 96 - Physical Exam General: Alert, In no apparent distress, Oriented x3 HEENT: Atraumatic, PERRLA, Mucous membr. moist/pink, EOMI, Sclerae nonicteric Neck: Supple, JVD not distended Respiratory: Diminished, Rhonchi/gurgles Cardiovascular: No edema, Regular rate/rhythm, Normal S1 S2, No gallops, No rubs, No murmurs Capillary refill: <2 Seconds Gastrointestinal: Normal bowel sounds, Soft and benign, Non-distended, No tenderness, No rebound, No guarding Musculoskeletal: No clubbing Integumentary: No rashes Neurological: Normal speech, Cranial nerves 3-12 intact, Normal affect Assessment And Plan - Plan # Viral Sepsis secondary to Influenza A and COVID-19 Infections He meets sepsis criteria based on HR > 90 bpm, RR > 20 breaths/min, WBC > 12,000 and the suspected source is viral. - Sepsis order set was initiated - Initial Lactate was 1.8 - Blood cultures drawn - Broad spectrum antibiotics not started given no bacterial infection - In regards to fluids: - 30 mL/kg of IV fluids was not administered given SBP > 90, MAP > 65, lactic acid < 4 # Acute Hypoxic Respiratory Failure - likely secondary to Influenza A and COVID- 19 Infection (improved) - Evaluation thus far: - Procalcitonin = 0.09 - Influenza A/COVID-19 = positive - Chest x-ray = "No acute cardiopulmonary abnormality identified by radiograph. Mild cardiomegaly" - CT chest angiogram = "Some of the images are compromised by breathing motion artifact limiting diagnostic value. No evidence for pulmonary embolism and/or thoracic aortic dissection. Elevation of the right hemidiaphragm with compressive atelectatic changes lung bases. Small trace of left pleural effusion. Status post TAVR. Minimal haziness within the lung parenchyma suggesting the possibility of air trapping/atelectasis" - Management plan: - Consulted Pulmonary Medicine - recommendations appreciated - Consulted Respiratory Therapy - Supplemental oxygen to maintain SpO2 > 92% - Started oseltamivir, dexamethasone - PRN benzonatate - Encouraged incentive spirometry - Isolation precautions # Type II Non-ST Segment Elevation Myocardial Infarction (Demand Ischemia) secondary to above # Hypertension # Hyperlipidemia # History of Aortic Valve Repair (TAVR) - Cardiology consulted and spoke with Dr. Fowler - recommendations appreciated - EKG = LBBB new from 2019 - Troponin trend: 99.1 -> 126.4 -> 61.1 - TTE = "NORMAL LEFT VENTRICULAR EJECTION FRACTION. NORMAL WALL MOTION. MITRAL ANNULAR CALCIFICATION WITH SEVERE MITRAL STENOSIS AND MILD MITRAL REGURGITATION. AORTIC VALVE PROSTHESIS FUNCTIONING WELL WITH MILD AORTIC INSUFFICIENCY." - Continue aspirin, atorvastatin # Hyperglycemia in Type II Diabetes Mellitus - Continue home insulin + correction scale insulin Sharan Pitts M.D.
[2022-07-16] MEDS: ATORVASTATIN 40 MG TAB PO SCH (21:34)
[2022-07-16] MEDS: BENZONATATE 100 MG CAP PO PRN (21:34)
[2022-07-17 04:36] LABS: Absolute Lymphocytes (CBC) 1.5 K/uL (0.7-4.9); Hematocrit 37.9 % (39.6-49.0); Lymphocytes % 8.4 % (15.3-44.8); MCV 79.6 fL (80-100); MPV 8.7 fL (7.6-11.3); RBC Red Blood Cell Count 4.76 M/uL (4.33-5.43)
[2022-07-17 04:55] LABS: Albumin 2.9 g/dL (3.4-5.0); Bilirubin Total 0.7 mg/dL (0.2-1.0); Protein, Total 6.4 g/dL (6.4-8.2)
--- NOTE | 2022-07-17 08:07 | P.DS ---
Admission Date: 07/15/22 Discharge Date: 07/17/22 Disposition: ROUTINE DISCHARGE Discharge Condition: GOOD Reason for Admission: NSTEMI, hypoxia, viral sepsis Consultations: 1. Pulmonary Medicine 2. Cardiology Hospital Course: DIAGNOSES: # Acute Hypoxic Respiratory Failure - likely secondary to Influenza A and COVID- 19 Infection (improved) # Viral Sepsis secondary to Influenza A and COVID-19 Infections (improved) # Type II Non-ST Segment Elevation Myocardial Infarction (Demand Ischemia) secondary to above # Hyperglycemia in Type II Diabetes Mellitus # Severe Mitral Stenosis # Steroid-Induced Leukocytosis # History of Aortic Valve Repair (TAVR) # Hypertension # Hyperlipidemia HOSPITAL COURSE: Mr. Jonathon Pimentel is a pleasant 77 year old male with a past medical history significant for an aortic valve repair, type II diabetes mellitus, hypertenion, and hyperlipidemia who was admitted to the [facility] on 07/15/2022 for shortness of breath. He was admitted to Medicine service. Upon further evaluation, he was found to have an acute hypoxic respiratory failure and viral sepsis secondary to COVID-19 and Influenza A infection. His chest x-ray revealed, "no acute cardiopulmonary abnormality identified by radiograph. Mild cardiomegaly." CT chest angiogram revealed, "some of the images are compromised by breathing motion artifact limiting diagnostic value. No evidence for pulmonary embolism and/or thoracic aortic dissection. Elevation of the right hemidiaphragm with compressive atelectatic changes lung bases. Small trace of left pleural effusion. Status post TAVR. Minimal haziness within the lung parenchyma suggesting the possibility of air trapping/atelectasis." Pulmonary Medicine was consulted and he was treated with oseltamivir and dexamethasone, with significant improvement of his symptoms. He was weaned to room air and Dr. Tran has cleared him for discharge home. During his evaluation, he was also noted to have a slightly elevated troponin trend from 99.1 to 126.4 to 61.1. Cardiology was consulted and he was evaluated by Dr. Fowler. Dr. Fowler feels that his troponin elevation was likely secondary to demand ischemia in the setting of influenza A and COVID-19 infections. He has cleared him for discharge home from a cardiac standpoint. On 07/17/2022, he was seen on morning rounds and deemed medically stable for discharge. He was discharged with instructions to schedule follow-up appointments with his PCP in 3-5 days for a repeat CBC, with Pulmonology (Dr. Tran) in 5-7 days, and with Cardiology (Dr. Fowler) in 1-2 weeks. He was provided prescriptions for dexamethasone, atorvastatin, benzonatate, and oseltamivir. He was given the opportunity to ask questions and reported no further questions. Furthermore, all questions were answered to the best of my ability. A copy of this discharge summary will be sent to the above providers to facilitate continuity of care. Today, I personally spent 25 minutes on his case, of which greater than 50% of the time was spent in patient education, counseling, and coordination of care as described above. - Physical Exam General: Alert, In no apparent distress, Oriented x3 HEENT: Atraumatic, PERRLA, Mucous membr. moist/pink, EOMI, Sclerae nonicteric Neck: Supple, JVD not distended Respiratory: Diminished, but clear to auscultation bilaterally. SpO2 97 % on room air Cardiovascular: No edema, Regular rate/rhythm, Normal S1 S2, No gallops, No rubs, No murmurs Capillary refill: <2 Seconds Gastrointestinal: Normal bowel sounds, Soft and benign, Non-distended, No tenderness, No rebound, No guarding Musculoskeletal: No clubbing Integumentary: No rashes Neurological: Normal speech, Cranial nerves 3-12 intact, Normal affect Vital Signs/Physical Exam: Temp Pulse Resp BP Pulse Ox 97.4 F 78 18 128/63 97 07/17/22 04:00 07/17/22 04:00 07/17/22 04:00 07/17/22 04:00 07/17/22 04:00 Laboratory Data at Discharge: WBC 18.10 K/uL (4.3-10.9) H 07/17/22 03:48 Hgb 12.1 g/dL (13.6-17.9) L 07/17/22 03:48 Hct 37.9 % (39.6-49.0) L 07/17/22 03:48 Plt Count 181 K/uL (152-406) 07/17/22 03:48 PT 10.4 SECONDS (9.2-12.8) 07/14/22 23:00 INR 0.87 07/14/22 23:00 Sodium 139 mmol/L (136-145) 07/17/22 03:48 Potassium 4.0 mmol/L (3.5-5.1) 07/17/22 03:48 BUN 30 mg/dL (7-18) H 07/17/22 03:48 Creatinine 0.91 mg/dL (0.55-1.3) 07/17/22 03:48 Glucose 242 mg/dL (74-106) H 07/17/22 03:48 Magnesium 1.8 mg/dL (1.8-2.4) 07/14/22 23:00 Total Bilirubin 0.7 mg/dL (0.2-1.0) 07/17/22 03:48 AST 25 U/L (15-37) 07/17/22 03:48 ALT 27 U/L (12-78) 07/17/22 03:48 Alkaline Phosphatase 66 U/L (45-117) 07/17/22 03:48 Home Medications: RX: Atorvastatin Calcium [Lipitor] 40 mg PO BEDTIME #30 tab 07/17/22 RX: Benzonatate [Tessalon Perle*] 100 mg PO TID PRN 7 Days #20 cap 07/17/22 RX: Insulin Glargine,Hum.rec.anlog [Semglee] 30 unit SQ DAILY ml 07/17/22 RX: Oseltamivir Phosphate [Tamiflu] 30 mg PO BID 3 Days #6 cap 07/17/22 RX: dexAMETHasone [Decadron*] 6 mg PO DAILY 5 Days #8 tab 07/17/22 New Medications: RX: dexAMETHasone [Decadron*] 6 mg PO DAILY 5 Days #8 tab RX: Atorvastatin Calcium [Lipitor] 40 mg PO BEDTIME #30 tab RX: Oseltamivir Phosphate [Tamiflu] 30 mg PO BID 3 Days #6 cap RX: Benzonatate [Tessalon Perle*] 100 mg PO TID PRN 7 Days #20 cap PRN Reason: Cough Physician Discharge Instructions: 1. Please schedule a follow-up appointment with your PCP in 3-5 days - You will need to have your white blood cell count rechecked 2. Please schedule a follow-up appointment with Pulmonology (Dr. Tran) in 5- 7 days 2. Please schedule a follow-up appointment with Cardiology (Dr. Fowler) in 1-2 weeks Diet: ADA Activity: Ad aleida Followup: Carlos Tran MD [ACTIVE - CAN ADMIT] - (Follow up in 5-7 days. Call to make appointment.) NONE,NONE [Primary Care Provider] - (3-5 days. Call to make appointment) Ritchie Fowler MD [ACTIVE - CAN ADMIT] - 1-2 Weeks (Call to make appointment) Time spent managing pt's care (in minutes): 25
[2022-07-17 08:55] VITALS: BP 142/63; TEMP 96.3
[2022-07-17] MEDS: INSULIN GLARGINE 100 UNIT/ML SQ SCH (09:23)
[2022-07-17] MEDS: INSULIN -REGULAR HUMAN 50 UNIT/0.5 ML ML SQ SCH (09:24)
[2022-07-17] MEDS: ENOXAPARIN 40 MG/0.4 ML SQ SCH (09:25)
[2022-07-17] MEDS: dexAMETHasone 4 MG TAB PO SCH (09:26)
[2022-07-17] MEDS: OSELTAMIVIR 30 MG CAP PO SCH (09:26)
[2022-07-17] MEDS: ASPIRIN EC 81 MG TAB PO SCH (09:26)
[2022-07-17 10:29] VITALS: O2SAT 100
== END 2022-07-17 10:18 | disposition home or self-care (01) | DRG 871 ==
LOC: ER 21:52 → ERHOLD 07-15 01:09 → 4TH 07-15 01:25
PROVIDERS: ADMIT Internal Medicine; ATTEND Internal Medicine
PROC: 5A09457 Assistance with Respiratory Ventilation, 24-96 Consecutive Hours, Continuous Positive Airway Pressure (ICD-10-PCS; principal; 2022-07-15)
DX: A41.89 Other specified sepsis (principal); I21.A1 Myocardial infarction type 2; J10.00 Influenza due to other identified influenza virus with unspecified type of pneumonia; U07.1 COVID-19; J12.82 Pneumonia due to coronavirus disease 2019; J96.01 Acute respiratory failure with hypoxia; I10 Essential (primary) hypertension; E78.5 Hyperlipidemia, unspecified; E11.65 Type 2 diabetes mellitus with hyperglycemia; I05.2 Rheumatic mitral stenosis with insufficiency; Z79.4 Long term (current) use of insulin; Z95.2 Presence of prosthetic heart valve; Z79.899 Other long term (current) drug therapy
CPT/HCPCS: 36415; 71045; 71275; 80048; 80053; 80076; 81003; 81015; 82947; 83605; 83735; 83880; 84145; 84484; 85025; 85610; 87040; 87804; 93005; 93306; 94010; 94660; 94760; 96374; 96375; 99285; J1650; J1815; J1940; J2930; J7040; J7614; J8540; Q9967; U0003